=== PATIENT | male | born 1945 | race African-American/Black ===

== ENCOUNTER 2020-08-13 18:22 | Inpatient (IN) | payer MEDICARE, SELFPAY ==
--- NOTE | ~2020-08-13 | XR_ITS ---
EXAMINATION: XR chest 1V portable DATE: 08/16/2020 08:45 INDICATION: Endotracheal tube adjustment. TECHNIQUE: A single frontal view of the chest was obtained. COMPARISON: Chest single view at 8:41 AM FINDINGS: There are airspace opacities in all right lung zones and in left mid and lower lung zones. The lateral costophrenic angles are excluded. No pleural effusion or pneumothorax. The heart size is normal. There is an intrathoracic goiter on the right. There are surgical clips from left hemithyroid ectomy. The endotracheal tube tip is 4.9 cm above the treva. The nasogastric tube tip is beyond the inferior margin of the radiograph, but at least to the stomach. A left internal jugular central venou s catheter is seen with tip in the superior vena cava. IMPRESSION: 1. Stable diffuse lung disease, consistent with pulmonary edema versus pneumonia. 2. Intrathoracic goiter. Reviewed, dictated and finalized at location B. CLEANING MACHINE OPERATOR IMPRESSION: 1. Stable diffuse lung disease, consistent with pulmonary edema versus pneumoni a. 2. Intrathoracic goiter.
--- NOTE | ~2020-08-13 | XR_ITS ---
EXAMINATION: XR chest 1V portable DATE: 08/14/2020 06:28 INDICATION: Respiratory failure TECHNIQUE: frontal view of the chest was obtained. COMPARISON: Chest radiograph dated CT dated 08/13/2020 FINDINGS: Elevation of the right hemidiaphragm. There are airspace opacities throughout the right lung and in t he left mid and lower lung zones. No pneumothorax or pleural effusion. Borderline heart size. Right s uperior mediastinal mass corresponding to a large intrathoracic goiter. There are bridging osteophyte s at multiple levels in the spine, consistent with diffuse idiopathic skeletal hyperostosis (DISH). IMPRESSION: 1. Diffuse bilateral lung disease, most suspicious for multifocal pneumonia. 2. Borderline heart size. 3. Intrathoracic goiter. Reviewed, dictated and finalized at location A. ING SYSTEMS INSTALLER
--- NOTE | ~2020-08-13 | XR_ITS ---
EXAMINATION: XR chest port-a-cath/central DATE: 08/14/2020 14:48 INDICATION: Line repositioning TECHNIQUE: frontal view of the chest was obtained. COMPARISON: Chest radiograph dated 08/14/2020 at 2:30 PM FINDINGS: Left internal jugular central venous catheter with distal tip at the cephalad superior vena cava. No change in airspace opacities in the bilateral mid and lower lung zones. No pleural effusion or pneumo thorax. Heart size is normal. Right-sided superior mediastinal widening corresponding to an intrathor acic goiter. Surgical clips at the left side of the neck consistent with prior left thyroidectomy. IMPRESSION: 1. Left internal jugular central venous catheter in the cephalad superior vena cava. 2. Unchanged airspace opacities in the bilateral mid and lower lung zones consistent with pneumonia. 3. Right-sided intrathoracic goiter. Reviewed, dictated and finalized at location A. SLITERATOR IMPRESSION: 1. Left internal jugular central venous catheter in the cephalad superior vena cava. 2. Unchanged airspace opacities in the bilateral mid and lower lung zones consi stent with pneumonia. 3. Right-sided intrathoracic goiter.
--- NOTE | ~2020-08-13 | XR_ITS ---
EXAMINATION: XR chest 1V portable DATE: 08/20/2020 09:26 INDICATION: Respiratory failure TECHNIQUE: frontal view of the chest was obtained. COMPARISON: Chest radiograph dated 08/19/2020 FINDINGS: Endotracheal tube tip 5.2 cm above the treva. Left internal jugular central venous catheter with dis dre tip in the midsuperior vena cava. Nasogastric tube extends below the left hemidiaphragm with dis dre tip collimated off the study. No significant interval change in diffuse airspace opacities throughout both lungs. No pneumothorax o r pleural effusion. Heart size is normal. Right-sided intrathoracic goiter. IMPRESSION: 1. No significant change in diffuse bilateral lung disease consistent with pneumonia. Reviewed, dictated and finalized at location A. STORAGE SUPERINTENDENT IMPRESSION: 1. No significant change in diffuse bilateral lung disease consistent with pneu monia.
--- NOTE | ~2020-08-13 | XR_ITS ---
EXAMINATION: XR chest 1V portable INDICATION: Cardiopulmonary arrest TECHNIQUE: Portable AP chest at 1825 hours COMPARISON: 0924 hours FINDINGS: The endotracheal tube ends approximately 2.1 cm above the treva. The nasogastric tube is f ollowed as far as the stomach. Its tip is beyond the inferior margin of the radiograph. A left chief of internal medicine al jugular central venous catheter ends with its tip in the proximal superior vena cava. Diffuse inte rstitial and airspace opacities persist without significant change. No pleural effusion or pneumothor ax is identified. The cardiomediastinal silhouette is stable. IMPRESSION: 1. Stable diffuse lung disease, consistent with pneumonia and/or pulmonary edema and/or acute respira tory distress syndrome (ARDS). Reviewed, dictated and finalized at location A. RAM MANAGER TRANSPORTATION IMPRESSION: 1. Stable diffuse lung disease, consistent with pneumonia and/or pulmonary gordo a and/or acute respiratory distress syndrome (ARDS).
--- NOTE | ~2020-08-13 | XR_ITS ---
EXAMINATION: XR chest port-a-cath/central DATE: 08/14/2020 13:10 INDICATION: Central line repositioning. TECHNIQUE: A single frontal view of the chest was obtained. COMPARISON: Chest single view at 12:30 PM FINDINGS: There are airspace opacities in the mid and lower lung zones. There is mild elevation of ri ght hemidiaphragm. No pleural effusion or pneumothorax. The heart size is normal. The left internal j ugular central venous catheter overlies the aortic arch with tip in the left superior intercostal vei n. There are surgical clips from left hemithyroidectomy. There is mediastinal widening from and intra thoracic goiter. IMPRESSION: 1. Central line tip in abnormal position in the left superior intercostal vein. 2. Airspace opacities in the mid and lower lung zones, consistent with pneumonia. 3. Intrathoracic goiter. Reviewed, dictated and finalized at location B. LE CASE PORTER IMPRESSION: 1. Central line tip in abnormal position in the left superior intercostal vein. 2. Airspace opacities in the mid and lower lung zones, consistent with pneumoni a. 3. Intrathoracic goiter.
--- NOTE | ~2020-08-13 | XR_ITS ---
EXAMINATION: XR abdomen NG/feed tube insert DATE: 08/16/2020 08:45 INDICATION: Orogastric tube placement. TECHNIQUE: A supine view of the abdomen was obtained. COMPARISON: None. FINDINGS: The lower abdomen is excluded. There are no dilated loops of bowel. The nasogastric tube ti p is in the stomach. IMPRESSION: 1. Nasogastric tube tip in the stomach. Reviewed, dictated and finalized at location B. STMENT EXECUTIVE
--- NOTE | ~2020-08-13 | XR_ITS ---
EXAMINATION: XR chest 1V portable DATE: 08/16/2020 06:24 INDICATION: Respiratory failure. COVID-19 pneumonia. TECHNIQUE: A single frontal view of the chest was obtained. COMPARISON: Chest single view 08/14/2020, chest CT 08/13/2020 FINDINGS: There are airspace opacities in all right lung zones and in left mid and lower lung zones. No pleural effusion or pneumothorax. The heart size is normal. There is chronic widening of the super ior mediastinum, consistent with an intrathoracic goiter. A left internal jugular central venous cath eter is seen with tip at the superior cavoatrial junction. IMPRESSION: 1. Worsened diffuse lung disease, consistent with pneumonia versus pulmonary edema. 2. Intrathoracic goiter. Reviewed, dictated and finalized at location B. OFFICER IMPRESSION: 1. Worsened diffuse lung disease, consistent with pneumonia versus pulmonary ed oscar. 2. Intrathoracic goiter.
--- NOTE | ~2020-08-13 | XR_ITS ---
EXAMINATION: XR chest port-a-cath/central DATE: 08/14/2020 12:42 INDICATION: Central line placement. TECHNIQUE: A single frontal view of the chest was obtained. COMPARISON: Chest single view at 6:17 AM, chest CT 08/13/2020 FINDINGS: There are airspace opacities in all right lung zones and left mid and lower lung zones. No pleural effusion or pneumothorax. The heart size is normal. There is a mediastinal mass correlating w ith an intrathoracic goiter by CT. A left internal jugular central venous catheter is seen with tip d irected superiorly in the right brachiocephalic vein. IMPRESSION: 1. Central line tip directed superiorly in right brachiocephalic vein. 2. Diffuse lung disease, consistent with pneumonia. 3. Intrathoracic goiter. Reviewed, dictated and finalized at location B. F OF PRODUCTION
--- NOTE | ~2020-08-13 | XR_ITS ---
EXAMINATION: XR chest 1V portable EXAM DATE: 08/25/2020 23:18 INDICATION: COVID. Desaturation. TECHNIQUE: Portable AP frontal chest x-ray was obtained. Comparison is made to prior examination from 3 a.m. this morning. FINDINGS: Endotracheal tube is above the treva. There is a nasogastric tube seen with tip collimate d off the study, but below the left hemidiaphragm. There is a left IJ venous line. Again there is extensive abnormal reticulation, pneumonia and/or edema. Probable small pleural effus ions. Mild cardiomegaly. There is no pneumothorax suspected. There are mild bony degenerative change s. Goiter. There is no significant interval change compared to prior exam. IMPRESSION: 1. Line and tube(s) in position. 2. Extensive bilateral edema and/or pneumonia not significantly changed Reviewed, dictated and finalized at location G. REMENT SALES CONSULTANT
--- NOTE | ~2020-08-13 | XR_ITS ---
EXAMINATION: XR chest ET placement DATE: 08/25/2020 03:14 INDICATION: Reintubation. COVID-19 pneumonia. TECHNIQUE: A single frontal view of the chest was obtained. COMPARISON: Chest single view 08/24/2020 FINDINGS: There are airspace and interstitial opacities in all lung zones bilaterally. No definite pl eural effusion. No pneumothorax. The heart size is normal. There is a right-sided intrathoracic goite r. There are surgical clips from left hemithyroidectomy. The endotracheal tube tip is 4.5 cm above th e treva. The nasogastric tube tip is beyond the inferior margin of the radiograph, but at least to t he stomach. A left internal jugular central venous catheter is seen with tip in the superior vena cav a. IMPRESSION: 1. Worsened diffuse lung disease, consistent with pneumonia versus pulmonary edema versus acute respi ratory distress syndrome (ARDS). 2. Intrathoracic goiter. Reviewed, dictated and finalized at location A. ING LINE WORKER IMPRESSION: 1. Worsened diffuse lung disease, consistent with pneumonia versus pulmonary ed oscar versus acute respiratory distress syndrome (ARDS). 2. Intrathoracic goiter.
--- NOTE | ~2020-08-13 | XR_ITS ---
EXAMINATION: XR chest 1V portable DATE: 08/23/2020 05:42 INDICATION: Intubated. COVID-19 pneumonia. TECHNIQUE: A single frontal view of the chest was obtained. COMPARISON: Chest single view 08/20/2020, chest CT 08/13/2020 FINDINGS: The patient is rotated to his right. There are airspace and interstitial opacities througho ut the lungs bilaterally. There are small pleural effusions. No pneumothorax. The heart size is danilo l. There is a right paratracheal mass correlating with a goiter by CT. There are surgical clips from left hemithyroidectomy. A left internal jugular central venous catheter is seen with tip in the super ior vena cava. The endotracheal tube tip is 5.2 cm above the treva. The nasogastric tube tip is beyo nd the inferior margin of the radiograph, but at least to the stomach. IMPRESSION: 1. Stable diffuse lung disease, consistent with pneumonia versus pulmonary edema versus acute respira tory distress syndrome (ARDS). 2. Small pleural effusions. 3. Intrathoracic goiter. Reviewed, dictated and finalized at location A. LE ASSEMBLER IMPRESSION: 1. Stable diffuse lung disease, consistent with pneumonia versus pulmonary gordo a versus acute respiratory distress syndrome (ARDS). 2. Small pleural effusions. 3. Intrathoracic goiter.
--- NOTE | ~2020-08-13 | XR_ITS ---
EXAMINATION: XR chest 1V portable DATE: 08/19/2020 08:55 INDICATION: Respiratory failure TECHNIQUE: frontal view of the chest was obtained. COMPARISON: Chest radiograph dated 08/18/2020 FINDINGS: Endotracheal tube tip 5.6 cm above the treva. Nasogastric tube extends below the left hemidiaphragm with distal tip collimated off the study. Left upper extremity peripherally inserted central venous catheter (PICC) tip at the superior vena cava. Elevation of the right hemidiaphragm. Again seen is a bilateral diffuse increased interstitial patter n with regions of patchy groundglass opacity. There is been interval worsening in the left mid and up per lung zones and with mild improvement in the left lower lung zone and more significant improvement throughout the right lung. No pleural effusion or pneumothorax. Heart size is normal. Right intratho racic goiter. IMPRESSION: 1. Bilateral interstitial and patchy airspace opacities with regions of improvement and regions of wo rsening which could represent pulmonary edema, pneumonia, atelectasis or most likely some combination thereof. 2. Right intrathoracic goiter. Reviewed, dictated and finalized at location A. TYPE OPERATOR IMPRESSION: 1. Bilateral interstitial and patchy airspace opacities with regions of improve ment and regions of worsening which could represent pulmonary edema, pneumonia, atelectasis or most likely some combination thereof. 2. Right intrathoracic goiter.
--- NOTE | ~2020-08-13 | XR_ITS ---
EXAMINATION: XR chest 1V portable DATE: 08/16/2020 08:45 INDICATION: Endotracheal tube adjustment. TECHNIQUE: A single frontal view of the chest was obtained. COMPARISON: Chest single view at 8:12 AM FINDINGS: There are airspace opacities in all lung zones bilaterally with relative sparing of left giovani ng apex. No pleural effusion or pneumothorax. The heart size is normal. The endotracheal tube tip is 9 mm above the treva. The nasogastric tube tip is beyond the inferior margin of the radiograph, but at least to the stomach. A left internal jugular central venous catheter is seen with tip in the supe rior vena cava. There is an intrathoracic goiter on the right. There are surgical clips from left hem ithyroidectomy. IMPRESSION: 1. Diffuse lung disease with improvement at left lung base, consistent with pneumonia versus pulmonar y edema. 2. Intrathoracic goiter. Reviewed, dictated and finalized at location B. GE PEEL OPERATOR IMPRESSION: 1. Diffuse lung disease with improvement at left lung base, consistent with pne umonia versus pulmonary edema. 2. Intrathoracic goiter.
--- NOTE | ~2020-08-13 | CT_ITS ---
EXAMINATION: CTA chest PE protocol DATE: 08/13/2020 19:52 INDICATION: Shortness of breath. TECHNIQUE: Computed tomography (CT) pulmonary angiogram of the chest was performed with 100 mL Omnipa que-350 intravenous contrast. Additional 3D reconstructions utilizing coronal maximum intensity proje ction (MIP) were performed. Automated exposure control and iterative reconstruction technique were em ployed. The dose-length product was 945.83 mGy-cm. COMPARISON: None FINDINGS: Good contrast opacification of the pulmonary arteries. There is mild streak artifact from dense contr ast in the superior vena cava and right atrium. Moderate scattered respiratory motion artifact which significantly limits evaluation in the subsegmental pulmonary arteries in the segmental pulmonary art eries in the right lower lobe. No definitive pulmonary embolism. And elevation of the right hemidiaph ragm with compressive atelectasis in the adjacent right middle and lower lobes. There are bilateral p atchy groundglass opacities and small region of consolidation throughout both lungs relatively sparin g the left apex. No pleural effusion. Borderline heart size. No pericardial effusion. Mild enlargement of the central pulmonary arteries co nsistent with pulmonary hypertension. Thoracic aorta is normal in caliber with no dissection. Postope rative change of prior left thyroidectomy. Right-sided multinodular goiter with large mass with coars e calcifications extending into the superior mediastinum. Mediastinal and right hilar lymphadenopathy . There are ossifications in a precarinal lymph node consistent with old granulomatous disease. Calci fied gallstones in the partially decompressed gallbladder evaluation of which is limited by motion ar tifact. Small low-attenuation cysts in the liver and right kidney. Severe cervical thoracic spondylos is. IMPRESSION: 1. No pulmonary embolism although evaluation in the subsegmental and right basilar segmental pulmonar y arteries is significantly limited by motion artifact. 2. Scattered bilateral patchy consolidation groundglass opacities consistent with multifocal pneumoni a with appearance suspicious for COVID. Differential would include significantly less likely pulmonar y edema, organizing or eosinophilic pneumonia, hypersensitivity pneumonitis or sarcoidosis. 3. Status post likely left thyroidectomy with large right-sided intrathoracic goiter. 4. Mediastinal and right hilar lymphadenopathy which is likely reactive. 5. Borderline heart size with mild enlargement of the pulmonary arteries consistent with pulmonary ar terial hypertension. 6. Cholelithiasis. Reviewed, dictated and finalized at location A. PASSENGER VESSEL IMPRESSION: 1. No pulmonary embolism although evaluation in the subsegmental and right basi lar segmental pulmonary arteries is significantly limited by motion artifact. 2. Scattered bilateral patchy consolidation groundglass opacities consistent wi th multifocal pneumonia with appearance suspicious for COVID. Differential woul d include significantly less likely pulmonary edema, organizing or eosinophilic pneumonia, hypersensitivity pneumonitis or sarcoidosis. 3. Status post likely left thyroidectomy with large right-sided intrathoracic g oiter. 4. Mediastinal and right hilar lymphadenopathy which is likely reactive. 5. Borderline heart size with mild enlargement of the pulmonary arteries consis tent with pulmonary arterial hypertension. 6. Cholelithiasis.
--- NOTE | ~2020-08-13 | XR_ITS ---
EXAMINATION: XR chest ET placement DATE: 08/16/2020 08:45 INDICATION: Intubation. TECHNIQUE: A single frontal view of the chest was obtained. COMPARISON: Chest single view at 5:31 AM FINDINGS: There are airspace opacities in all right lung zones and in left mid and lower lung zones. No pleural effusion or pneumothorax. The heart size is normal. The endotracheal tube tip is 1.3 cm ab ove the treva. The nasogastric tube tip is beyond the inferior margin of the radiograph, but at leas t to the stomach. A left internal jugular central venous catheter is seen with tip in the superior ve na cava. There is an intrathoracic goiter on the right. There are surgical clips from left hemithyroi dectomy. IMPRESSION: 1. Diffuse lung disease with worsening at left lung base, consistent with pneumonia versus pulmonary edema. 2. Intrathoracic goiter. Reviewed, dictated and finalized at location B. TH PROGRAM MANAGER IMPRESSION: 1. Diffuse lung disease with worsening at left lung base, consistent with pneum onia versus pulmonary edema. 2. Intrathoracic goiter.
--- NOTE | ~2020-08-13 | US_ITS ---
EXAMINATION: US renal BI DATE: 08/15/2020 15:46 INDICATION: Acute kidney injury. TECHNIQUE: Multiple ultrasound grayscale images of the kidneys were obtained. COMPARISON: Chest CT 08/13/2020 FINDINGS: The right kidney measures 8.4 x 4.8 x 6.8 cm. The left kidney measures 10.7 x 5.6 x 6.0 cm. The kidne ys demonstrate normal parenchymal echogenicity. There is no hydronephrosis. The bladder is decompress ed by a Cortés catheter. IMPRESSION: 1. Mild atrophy of right kidney. No hydronephrosis. Reviewed, dictated and finalized at location B. L OF FORTUNE DEALER
--- NOTE | ~2020-08-13 | XR_ITS ---
EXAMINATION: XR chest 1V portable DATE: 08/17/2020 07:07 INDICATION: Respiratory failure. COVID-19 pneumonia. TECHNIQUE: A single frontal view of the chest was obtained. COMPARISON: Chest single view 08/16/2020, chest CT 08/13/2020 FINDINGS: There are patchy airspace opacities involving all lung zones bilaterally with relative spar ing of left upper lung zone. No pleural effusion or pneumothorax. The heart size is normal. A chronic right paratracheal mass correlates with an intrathoracic goiter by CT. There are surgical clips from left hemithyroidectomy. The endotracheal tube tip is 4.2 cm above the treva. The nasogastric tube t ip is beyond the inferior margin of the radiograph, but at least to the stomach. A left internal jugu lar central venous catheter is seen with tip in the superior vena cava. IMPRESSION: 1. Diffuse lung disease with interval improvement in aeration, consistent with pneumonia. 2. Intrathoracic goiter. Reviewed, dictated and finalized at location B. DISCHARGE
--- NOTE | ~2020-08-13 | XR_ITS ---
EXAMINATION: XR chest 1V portable DATE: 08/18/2020 06:07 INDICATION: Respiratory failure TECHNIQUE: frontal view of the chest was obtained. COMPARISON: Chest radiograph dated 08/17/2020 FINDINGS: Endotracheal tube tip 6.5 cm above the treva. Nasogastric tube extends below the left hemidiaphragm with distal tip collimated off the study. Left internal jugular central venous catheter with distal tip at the cephalad superior vena cava. No significant interval change in reticular and patchy airspace opacities throughout both lungs with relatively sparing at the left upper lung zone. No pleural effusion or pneumothorax. Heart size is no rmal. Chronic right intrathoracic goiter. IMPRESSION: 1. No significant change in diffuse bilateral lung disease consistent with pneumonia. 2. Endotracheal tube tip 6.5 cm above the treva. Consider advancement by 4 cm. 3. Intrathoracic goiter. Reviewed, dictated and finalized at location A. AIN WAITER/WAITRESS IMPRESSION: 1. No significant change in diffuse bilateral lung disease consistent with pneu monia. 2. Endotracheal tube tip 6.5 cm above the treva. Consider advancement by 4 cm. 3. Intrathoracic goiter.
--- NOTE | ~2020-08-13 | XR_ITS ---
EXAMINATION: XR chest 1V portable DATE: 08/24/2020 06:16 INDICATION: Respiratory failure. COVID-19 pneumonia. TECHNIQUE: A single frontal view of the chest was obtained. COMPARISON: Chest single view 08/23/2020 FINDINGS: There are airspace and interstitial opacities throughout the lungs bilaterally. No definite pleural effusion. No pneumothorax. The heart size is normal. There are surgical clips from left shellie thyroidectomy. There is an intrathoracic goiter on the right. A left internal jugular central venous catheter is seen with tip in the superior vena cava. The endotracheal tube tip is 5.4 cm above the ca scarlett. The nasogastric tube tip is beyond the inferior margin of the radiograph, but at least to the s tomach. IMPRESSION: 1. Stable diffuse lung disease, consistent with pneumonia versus pulmonary edema versus acute respira tory distress syndrome (ARDS). 2. Intrathoracic goiter. Reviewed, dictated and finalized at location A. CAL REFERRAL COORDINATOR IMPRESSION: 1. Stable diffuse lung disease, consistent with pneumonia versus pulmonary gordo a versus acute respiratory distress syndrome (ARDS). 2. Intrathoracic goiter.
--- NOTE | ~2020-08-13 | XR_ITS ---
EXAMINATION: XR chest port-a-cath/central DATE: 08/14/2020 14:36 INDICATION: Central line placement TECHNIQUE: frontal view of the chest was obtained. COMPARISON: Chest radiograph dated 08/14/2020 at 1:01 PM FINDINGS: The left internal jugular central venous catheter has been repositioned, now extending to the superio r vena cava and a short distance into the azygos vein. Unchanged airspace opacities in the bilateral mid and lower lung zones. Right superior mediastinal widening corresponding to an intrathoracic goite r on prior CT. No pleural effusion or pneumothorax. Elevation of the right hemidiaphragm. Heart size is normal. IMPRESSION: 1. Left internal jugular central venous catheter with tip in the proximal azygos vein. 2. Airspace opacities in the bilateral mid and lower lung zones consistent with pneumonia. 3. Intrathoracic goiter. Reviewed, dictated and finalized at location A. PAN MIXER IMPRESSION: 1. Left internal jugular central venous catheter with tip in the proximal azygo s vein. 2. Airspace opacities in the bilateral mid and lower lung zones consistent with pneumonia. 3. Intrathoracic goiter.
[2020-08-13 18:26] VITALS: BP 130/78; PULSE 85; RESP 18; TEMP 37.2; O2SAT 83
--- NOTE | 2020-08-13 18:36 | ECG_ITS ---
Measurements Intervals [place] Rate: 80 P: [place]: 0 QRS: 182 QRSD: 108 T: 115 QT: 360 QTc: 418 Interpretive Statements SINUS OR ECTOPIC ATRIAL RHYTHM CONSIDER LIMB LEAD REVERSAL BORDERLINE AV CONDUCTION DELAY ANTERIOR INFARCT, AGE INDETERMINATE INFERIOR INFARCT, AGE INDETERMINATE BASELINE ARTIFACT- I, II, AVR, AVL, AVF, V4 ABNORMAL ECG Electronically Signed On 08-14-2020 12:01:16 ECHO VASCULAR TECHNOLOGIST by Neal Rodriguez D.O.
[2020-08-13 18:44] LABS: Base Excess ABG -3.2 mEq/l (+/-2.0); Fractional Inspired Oxygen 100 %; HCO3 ABG 20.9 mEq/l (22.0-26.0); Oxygen Content ABG 14.6 %vol (16.0-22.0); Oxygen Saturation ABG 98.7 % (95.0-100.0); Oxyhemoglobin 97.5 % THb (90.0-100.0); PCO2 ABG 34.1 mmHg (35.0-45.0); PO2 ABG 130.9 mmHg (80.0-100.0); PO2 FiO2 Ratio Arterial Blood 1.31 %; Total Hemoglobin 10.5 g/dL (12.0-18.0); pH ABG 7.405 (7.350-7.450)
[2020-08-13 18:45] LABS: Device NON-REBREATHER MASK; Modified Allen's Test Pass; Site Drawn RIGHT RADIAL
--- NOTE | 2020-08-13 19:11 | ED.SOB ---
HPI - SOB/Dyspnea General Chief Complaint: Fever Stated Complaint: cough/fever Time Seen by Provider: 08/13/20 18:49 Source: patient Mode of arrival: ambulatory Limitations: no limitations History of Present Illness HPI Narrative: Patient 77-year-old male complaining of shortness of breath, cough and fever that started 3 days ago and worse tonight. Patient states he has a history of COPD and on 3 L of oxygen at home. Patient denies any chest pain, abdominal pain, nausea, vomiting, diarrhea. Related Data Allergies Allergy/AdvReac Type Severity Reaction Status Date / Time No Known Allergies Allergy Verified 08/13/20 20:15 Review of Systems Review of Systems: All systems reviewed & are unremarkable except as noted in HPI and below Constitutional: Constitutional: Denies body ache(s), Denies excessive sweating, Denies fatigue, Denies headache(s), Denies lethargy, Denies malaise, Denies weakness and Denies weight loss Eyes: Eyes: Denies blurry vision, Denies change in vision and Denies loss of vision ENT: Denies dizziness, Denies ear discharge, Denies headache(s), Denies lip swelling, Denies epistaxis, Denies nasal congestion, Denies neck pain, Denies throat swelling and Denies tongue swelling Cardiovascular: Cardiovascular: Denies chest pain, Denies chest pain at rest, Denies chest pain with activity, Denies diaphoresis, Denies rapid heart rate, Denies edema, Denies irregular heart rhythm, Denies lightheadedness and Denies palpitations Respiratory: Respiratory: Denies chest congestion, Denies cough and Denies hemoptysis Gastrointestinal: Gastrointestinal: Denies abdominal pain, Denies melena, Denies hematochezia, Denies diarrhea, Denies nausea, Denies vomiting and Denies hematemesis Musculoskeletal: Musculoskeletal: Denies abnormal gait, Denies deformity, Denies joint swelling, Denies limited range of motion, Denies neck pain and Denies numbness Neurologic: Denies Abnormal speech present, Denies abnormal gait, Denies confusion, Denies dizziness, Denies headache(s), Denies focal weakness, Denies loss of vision, Denies numbness, Denies Other visual disturbances, Denies Sensory deficit (Neuro) and Denies weakness Psychiatric: Psychiatric: Denies confusion, Denies depression, Denies auditory hallucinations, Denies homicidal ideation and Denies suicidal ideation Endocrine: Endocrine: Denies cold intolerance, Denies excessive sweating, Denies fatigue, Denies heat intolerance and Denies palpitations Hematologic/Lymphatic: Hematologic/Lymphatic: Denies easy bleeding and Denies easy bruising Allergic/Immunologic: Allergic/Immunologic: Denies lip swelling, Denies throat swelling and Denies tongue swelling [facility] Social History Social History Gender identity (if verbalized by the patient): Male Exam Const: General: alert, awake, in distress moderate and ill appearing; No confusion Nutritional Appearance: obese Orientation/consciousness: oriented to person, oriented to place, oriented to time, patient oriented x3 and No confusion Limitations: no limitations HENMT: Head: normal to inspection, normocephalic and atraumatic Ears: hearing grossly normal bilaterally, TM normal on the right and TM normal on the left General nose exam: Normal external nose present, Normal nares present and No nasal discharge present Face and sinus: normal facial exam Mouth: Yes Normal oral and palatal mucosa present, Yes lip normal, Yes tongue normal and Yes oropharynx normal Throat: posterior oropharynx normal, tonsils normal and uvula midline Eyes: General: appearance normal, both eyes and all related structures Pupils: Equal, round and reactive pupils present EOM: EOMs intact bilaterally Neck: Neck: normal visual inspection, full ROM, no lymphadenopathy and no meningeal signs Chest: Chest palpation & inspection: normal inspection of the chest Resp: Effort & Inspection: respiratory distress Auscultation: rhonchi, wheezes and diminished lung sounds C
[2020-08-13 19:12] LABS: Basophils Percent Auto 0.2 % (0.2-1.2); Hemoglobin 9.9 g/dL (14.0-18.0); Immature Granulocyte Absolute 0.04 K/mm3 (0.00-0.031); Immature Granulocyte Percent A 0.4 % (0-0.5); Lymphocytes Absolute Auto 1.73 K/mm3 (0.9-3.2); Mean Corpuscular HGB Conc 30.9 g/dl (32-36); Mean Platelet Volume 12.5 fl (7.4-10.4); Monocytes Absolute Auto 0.7 K/mm3 (0.1-0.6); Monocytes Percent Auto 6.6 % (2.6-8.5); Neutrophils Absolute Auto 7.7 K/mm3 (1.3-6.7); Neutrophils Percent Auto 75.8 % (45.5-73.1); Platelet Count Result 160 k/mm3 (150-375); Red Blood Count 3.81 M/mm3 (4.6-6.20); Red Cell Distribution Width 14.6 % (11.5-14.5); White Blood Count 10.2 K/mm3 (4.5-10.0)
[2020-08-13 19:24] LABS: Anion Gap 11 mmol/L (8-16); Blood Urea Nitrogen 38 mg/dL (9-20); Calcium 7.7 mg/dL (8.4-10.2); Carbon Dioxide 24 mmol/L (22-30); Chloride 105 mmol/L (98-107); Estimated CRCL calculation 33 ml/min; Estimated Glomerular Filt Rate 31; Glucose 199 mg/dL (75-110); Potassium 3.8 mmol/L (3.4-5.0); Sodium 140 mmol/L (137-145)
[2020-08-13 19:40] LABS: Lactic Acid Reflex 3.7 mmol/L (0.7-2.1)
[2020-08-13 21:46] VITALS: BP 155/42; PULSE 98; RESP 21; O2SAT 99
[2020-08-13 22:05] VITALS: PULSE 94; RESP 26
[2020-08-13] MEDS: ALBUTEROL SULFATE NEB 2.5 MG/0.5 ML INH 5 MG INHALATION (22:06)
[2020-08-13] MEDS: IPRATROPIUM BR 0.02% INH SOLN 0.5 MG/2.5 ML VIAL INHALATION (22:07)
[2020-08-13] MEDS: LACTATED RINGERS 1,000 ML 999 ML IV CONT (22:19)
[2020-08-13 22:27] LABS: Reflex Lactic Acid Yes or No Add Lactic
--- NOTE | 2020-08-13 22:43 | ADMGEN ---
This patient, Faustino Meza, was admitted to IMU Room 214-01 at 2243. Patient/family oriented to hospital policies and general routines including ID bracelet, bed and alarms, visiting hours, pain management, procedures, bathroom and other care routines, personal items, smoking policy, room service/diet, and visiting hours. Information on how to activate the Rapid Response Team has been discussed. Patient/Family are encouraged to report perceived risks to care and to ask questions if they do not understand what they are told or what they should do.
[2020-08-13 22:44] VITALS: PULSE 103
[2020-08-13 23:00] VITALS: BP 193/65; PULSE 107; RESP 20; TEMP 37; O2SAT 93; BMI 37.5
--- NOTE | 2020-08-13 23:07 | ADMGEN ---
This patient, Faustino Meza, was admitted to IMU Room 214-01. Patient/family oriented to hospital policies and general routines including ID bracelet, bed and alarms, visiting hours, pain management, procedures, bathroom and other care routines, personal items, smoking policy, room service/diet, and visiting hours. Information on how to activate the Rapid Response Team has been discussed. Patient/Family are encouraged to report perceived risks to care and to ask questions if they do not understand what they are told or what they should do.
[2020-08-13 23:08] VITALS: BMI 37.4
[2020-08-13 23:14] VITALS: BP 193/65; PULSE 107; RESP 20; TEMP 37; O2SAT 93; BMI 37.4
--- NOTE | 2020-08-13 23:15 | PM.IMHP ---
H&P: HPI History of Present Illness Date/Time: 08/13/20 23:15 Chief complaint: Acute Respiratory Failure, Pneumonia Narrative: This is a pleasant 75-year-old diabetic male with known history chronic hypertension, hyperlipidemia, and chronic respiratory failure normally on 3 L of oxygen at home at all times presented to the hospital tonight with a history of increased shortness of breath, poorly productive cough, and fevers for the past 3 days. The patient's family notice that he was requiring more oxygen and started having intermittent fevers. Today the patient required 4 L of oxygen at home and his family decided to bring him to the hospital when he was having more shortness of breath and a fever. Associated symptoms include wheezing and .The patient's is also sick at home with similar symptoms. He currently denies any nausea, vomiting, chest pain, palpitations, Abdominal pain, dysuria, diarrhea, rectal bleeding, or focal neurological deficits. The patient was evaluated emergency room this evening and CTA chest demonstrated scattered bilateral patchy consolidation groundglass opacities consistent with multifocal pneumonia with appearance suspicious for COVID. The patient has been placed on high-flow oxygen and we been asked to admit him to the hospital for further care. The patient has been swab for COVID-19. The patient was also treated with 1 liter of LR in the ER and then Lasix IV was ordered but never administered in the ER. He was treated with IV antibiotics for community acquired pneumonia. Review of Systems Review of Systems: All systems reviewed & are unremarkable except as noted in HPI and below PMFSH Past Medical History Medical History Chronic respiratory failure Dementia Diabetes mellitus Hyperlipidemia Hypertension Family History Family History Other Unknown family medical history Social History Social History Smoking packs per day: 4 Smoking cigarettes per day: 80.0 Years smoked: 60 Smoking pack-years: 240.00 Smoking status: Former smoker Tobacco type: cigarettes Alcohol intake: former Substance use: never Gender identity (if verbalized by the patient): Male Spiritual care concerns: No Comments Past surgical history is reviewed and noncontributory. Meds Home Medications and Allergies Home Medications Medication Instructions Recorded Confirmed Type aspirin [Aspir-81] 81 mg PO DAILY 08/13/20 08/13/20 History atorvastatin 40 mg PO HS 08/13/20 08/13/20 History budesonide-formoterol [Symbicort] 2 puff INHALATION Q12H 08/13/20 08/13/20 History calcitriol 0.25 mcg PO DAILY 08/13/20 08/13/20 History diltiazem HCl 360 mg PO DAILY 08/13/20 08/13/20 History donepezil 10 mg PO DAILY 08/13/20 08/13/20 History doxazosin 2 mg PO HS 08/13/20 08/13/20 History ergocalciferol (vitamin D2) 50,000 unit PO DAILY 08/13/20 08/13/20 History glimepiride 2 mg PO DAILY 08/13/20 08/13/20 History insulin degludec [Tresiba 50 unit SUBCUT DAILY 08/13/20 08/13/20 History FlexTouch U-200] losartan 100 mg PO DAILY 08/13/20 08/13/20 History memantine 5 mg PO HS 08/13/20 08/13/20 History oxybutynin chloride 5 mg PO DAILY 08/13/20 08/13/20 History Allergies Allergy/AdvReac Type Severity Reaction Status Date / Time No Known Allergies Allergy Verified 08/13/20 20:15 Vital Signs Vital Signs - 24 hr 08/13/20 18:26 08/13/20 21:46 08/13/20 22:05 Temperature 37.2 C Pulse Rate 85 98 94 Respiratory Rate 18 21 H 26 H Blood Pressure 130/78 155/42 H Pulse Oximetry 83 L 99 08/13/20 23:00 08/13/20 23:14 Temperature 37.0 C 37.0 C Pulse Rate 107 H 107 H Respiratory Rate 20 20 Blood Pressure 193/65 H 193/65 H Pulse Oximetry 93 93 Exam Const: General: cooperative, alert, awake, acute distress mild and respirator
[2020-08-14] VITALS (39 sets, daily range): BP systolic 126–198; BP diastolic 44–152; PULSE 77–121; RESP 20–38; TEMP 35.9–37.2; O2SAT 80–100
--- NOTE | 2020-08-14 00:40 | PC.NURSE ---
This patient, Faustino Meza, was received from IMU on 08/14/20 at 0040. Patient oriented to unit policies and routines
[2020-08-14 00:46] LABS: Fractional Inspired Oxygen 100 %; HCO3 ABG 22.1 mEq/l (22.0-26.0); Oxygen Content ABG 12.3 %vol (16.0-22.0); Oxyhemoglobin 80.1 % THb (90.0-100.0); PO2 FiO2 Ratio Arterial Blood 0.56 %; Total Hemoglobin 10.9 g/dL (12.0-18.0)
[2020-08-14 00:47] LABS: Device NON-REBREATHER MASK; Modified Allen's Test Pass; Oxygen Saturation ABG 82.4 % (95.0-100.0); Site Drawn RIGHT RADIAL; pH ABG 7.214 (7.350-7.450)
[2020-08-14] MEDS: FUROSEMIDE INJ 100 MG/10 ML VIAL (00:52)
[2020-08-14] MEDS: hydrALAZINE HCL 20 MG/ML VIAL 10 MG IV PUSH ×2 (01:32→05:51)
[2020-08-14 01:50] LABS: Add Urine Microscopic? YES; Amorphous Sediment Urine Few; Appearance Urine Cloudy (Clear); Bacteria Urine Trace /hpf; Bilirubin Urine Negative (Negative); Blood Urine Negative (Negative); Color Urine Yellow (Yellow); Glucose Urine UA 1+ mg/dL (Negative); Ketones Urine Negative (Negative); Leukocyte Esterase Ur 1+ LEU/UL (Negative); Nitrate Urine Negative (Negative); Protein Urine 2+ mg/dL (Negative); Specific Grav Ur 1.023 (1.001-1.035); Squamous Epithelial Cell Urine Rare /hpf (Few); Urobilinogen Urine Negative mg/dL (<2.0); WBC Urine 31-50 /hpf
[2020-08-14 02:26] LABS: Alveolar/Arterial O2 Gradient 594.8 mmHg; Carboxyhemoglobin 0.3 % THb (0-2.0); Fractional Inspired Oxygen 100 %; HCO3 ABG 20.9 mEq/l (22.0-26.0); Methemoglobin ABG 0.2 %THb (0-1.5); Oxygen Content ABG 13.8 %vol (16.0-22.0); Oxygen Saturation ABG 95.6 % (95.0-100.0); PCO2 ABG 37.5 mmHg (35.0-45.0); PO2 ABG 80.7 mmHg (80.0-100.0); PO2 FiO2 Ratio Arterial Blood 0.81 %; Reduced Hemoglobin 5.5 %THb (0-5.0); Total Hemoglobin 10.4 g/dL (12.0-18.0); pH ABG 7.365 (7.350-7.450)
[2020-08-14 02:27] LABS: Device BIPAP; Expiratory Pressure 8 cmH2O; Inspiratory Pressure 16 cmH2O; Modified Allen's Test Pass; Site Drawn RIGHT RADIAL
[2020-08-14 07:04] LABS: Basophils Percent Auto 0.1 % (0.2-1.2); Hematocrit 31.2 % (42.0-52.0); Hemoglobin 9.6 g/dL (14.0-18.0); Immature Granulocyte Absolute 0.04 K/mm3 (0.00-0.031); Immature Granulocyte Percent A 0.3 % (0-0.5); Lymphocytes Absolute Auto 0.88 K/mm3 (0.9-3.2); Lymphocytes Percent Auto 7.5 % (18.3-44.2); Mean Corpuscular HGB Conc 30.8 g/dl (32-36); Mean Corpuscular Hemoglobin 25.3 pg (26-34); Mean Corpuscular Volume 82.3 fl (80-100); Mean Platelet Volume 12.1 fl (7.4-10.4); Monocytes Absolute Auto 0.7 K/mm3 (0.1-0.6); Monocytes Percent Auto 5.6 % (2.6-8.5); Neutrophils Absolute Auto 10.1 K/mm3 (1.3-6.7); Neutrophils Percent Auto 86.5 % (45.5-73.1); Platelet Count Result 154 k/mm3 (150-375); Red Blood Count 3.79 M/mm3 (4.6-6.20); Red Cell Distribution Width 14.7 % (11.5-14.5); White Blood Count 11.7 K/mm3 (4.5-10.0)
[2020-08-14 07:25] LABS: Lactic Acid Reflex 1.4 mmol/L (0.7-2.1)
[2020-08-14 07:26] LABS: Alanine Aminotransferase 23 U/L (4-50); Alkaline Phosphatase 104 U/L (38-126); Anion Gap 6 mmol/L (8-16); Aspartate Amino Transferase 52 U/L (17-59); Bilirubin,Total 0.6 mg/dL (0.2-1.3); Blood Urea Nitrogen 36 mg/dL (9-20); Calcium 7.6 mg/dL (8.4-10.2); Carbon Dioxide 28 mmol/L (22-30); Chloride 106 mmol/L (98-107); Estimated CRCL calculation 29 ml/min; Estimated Glomerular Filt Rate 34; Glucose 224 mg/dL (75-110); Magnesium 1.9 mg/dL (1.6-2.3); Potassium 4.1 mmol/L (3.4-5.0); Sodium 140 mmol/L (137-145)
--- NOTE | 2020-08-14 07:26 | PC.NURSE ---
This patient, Faustino Meza, was transferred to IMU 214 on 08/14/20 at 0700. Personal belongings sent with patient. Report given to SIERRA MENA. Appropriate documentation sent with patient.
[2020-08-14 07:30] LABS: Erythrocyte Sedimentation Rate 61 mm/hr (0-20)
[2020-08-14] MEDS: ALBUTEROL SULFATE (*SP) AEROSOL 1 PUFF 2 PUFF INHALATION (07:46)
[2020-08-14 08:12] LABS: CRP 24.6 mg/dL (<1.0); Creatine Kinase 394 U/L (55-170); Lactate Dehydrogenase 1028 U/L (313-618)
[2020-08-14] MEDS: DEXAMETHASONE SOD PHOS INJ 4 MG/ML VIAL 6 MG IV PUSH (09:15)
[2020-08-14] MEDS: ENOXAPARIN 40 MG/0.4 ML SYRINGE SUB-Q ×2 (09:17→20:19)
[2020-08-14 11:53] LABS: Glucose Point of Care 182 (65-105)
[2020-08-14] MEDS: LIDOCAINE HCL 1% LOCAL INJ 2 ML AMPUL 5 ML INFILTRATE (12:15)
[2020-08-14 13:39] LABS: INR 1.2; Prothrombin Time 15.3 Seconds (11.1-14.7)
[2020-08-14 13:40] LABS: Partial Thromboplastin Time 38.5 SECONDS (22.3-36.8)
[2020-08-14 13:45] LABS: Alanine Aminotransferase 25 U/L (4-50); Albumin Level 2.9 g/dL (3.5-5.1); Alkaline Phosphatase 98 U/L (38-126); Anion Gap 5 mmol/L (8-16); Aspartate Amino Transferase 58 U/L (17-59); Bilirubin,Total 0.7 mg/dL (0.2-1.3); Blood Urea Nitrogen 38 mg/dL (9-20); Calcium 7.6 mg/dL (8.4-10.2); Carbon Dioxide 28 mmol/L (22-30); Chloride 108 mmol/L (98-107); Estimated CRCL calculation 27 ml/min; Estimated Glomerular Filt Rate 31; Glucose 197 mg/dL (75-110); Potassium 3.9 mmol/L (3.4-5.0); Sodium 141 mmol/L (137-145)
--- NOTE | 2020-08-14 15:47 | PCRCNOTE ---
08/14/20 0200 mdi not given Window of time for administration has passed. See next scheduled administration.
[2020-08-14] MEDS: CENTRAL LINE FLUSH 10 ML IV PUSH ×2 (16:51→20:19)
--- NOTE | 2020-08-14 16:54 | PM.IMPN ---
Progress Note: A&P Assessment and Plan (1) Acute on chronic respiratory failure with hypoxia and hypercapnia: Code(s): J96.21 - Acute and chronic respiratory failure with hypoxia; J96.22 - Acute and chronic respiratory failure with hypercapnia Status: Acute Assessment and Plan: The patient is clearly fluid overloaded with diffuse crackles in all lung bella and this is likely secondary to the 1 liter of LR bolus he recieved in the ER. He has been admitted to IMU and at this time he appears to be in severe acute respiratory distess and very well may need to be intubated shortly. We will initiate bipap, transfer to ICU, Administer Lasix IV now. Consider further IV lasix as needed. Check morning CXR. Check ABG now and after Bipap therapy. 08/14/20 16:54 Patient is 75-year-old male with history of chronic respiratory failure on home oxygen 3 L however patient had been desaturating on his home oxygen was increased to 4 L without much improvement, he was also having fever, some of the family member been positive for COVID-19, patient and family were concerned about it and was brought to the emergency department, patient COVID is pending, in ER he was desaturating and patient was placed on BiPAP. Currently patient on BiPAP unable to provide any review of symptoms, from emergency depart patient started on dexamethasone, azithromycin and Rocephin will consult staple side laster for further recommendation. (2) Suspected 2019 novel coronavirus infection: Code(s): Z20.828 - Contact with and (suspected) exposure to other viral communicable diseases Status: Acute Assessment and Plan: The patient has been swabbed for COVID-19. We will initiate Dexamethasone IV daily. Continue droplet isolation and supplemental oxygen therapy. We will consider Remdesivir thearpy if the patient tests postiive for COVID-19. Lovenox. (3) Pneumonia: Qualifiers: Laterality: unspecified laterality Lung location: unspecified part of lung Pneumonia type: due to unspecified organism Qualified Code(s): J18.9 - Pneumonia, unspecified organism Code(s): J18.9 - Pneumonia, unspecified organism Status: Acute Assessment and Plan: r/o Viral vs. Bacterial pneumonia. Continue IV antibiotics for now. Bronchodilators. Steroid therapy. Blood and sputum cultures. RT assess and treat. (4) Severe sepsis: Code(s): A41.9 - Sepsis, unspecified organism; R65.20 - Severe sepsis without septic shock Status: Acute Assessment and Plan: with tachycardia and tachypnea and elevated lactic acid. Source of sepsis appears to be pulmonary but may also be urinary. continue IV antibiotics. blood/sputum/urine cultures. Check reflex lactic acid. Monitor urine output and vital signs closely. We will consider central line placement and vasopressors if necessary. (5) Renal failure: Qualifiers: Renal failure chronicity: unspecified chronicity Qualified Code(s): N19 - Unspecified kidney failure Code(s): N19 - Unspecified kidney failure Status: Acute Assessment and Plan: Acute vs. Chronic? Likely secondary to sepsis. Monitor renal function. Avoid nephrotoxic agents, renally dose medications. Consider nephrology consultation in am. (6) Abnormal urinalysis: Code(s): R82.90 - Unspecified abnormal findings in urine Status: Acute Assessment and Plan: r/o UTI. continue IV antibiotics. Urine culture is pending. (7) Normocytic anemia: Code(s): D64.9 - Anemia, unspecified Status: Acute Assessment and Plan: Acute vs. Chronic anemia - No signs of acute blood loss tonight. Monitor H/H, transfuse prn. (8) Diabetes mellitus: Qualifiers: Diabetes mellitus type: type 2 Diabetes mellitus long term acute care registered nurse insulin use: without long term acute care registered nurse use Diabetes mellitus complication status: without complication Qualified Code(s): E11.9 - Type 2 diabetes mellitus without
[2020-08-14 18:52] LABS: SARS-CoV-2 RNA PCR Positive
[2020-08-14] MEDS: ALBUTEROL SULFATE (*SP) INHALER 2 PUFF INHALATION ×2 (20:17→20:48)
[2020-08-15] VITALS (25 sets, daily range): BP systolic 109–191; BP diastolic 69–103; PULSE 86–137; RESP 21–35; TEMP 36–37.1; O2SAT 69–95
--- NOTE | 2020-08-15 | ECHO_ITS ---
Patient Info Name: Faustino Meza Age: 75 years : 1945 Gender: Male Ht: 67 in Wt: 240 lbs BSA: 2.32 m2 HR: 100 bpm BP: 132 / 75 mmHg Heart Rhythm: Tachycardia, Sinus Rhythm Technical Quality: Good Exam Date: 08/15/2020 4:20 PM Exam Location: [facility] Card Pulmonary Patient Status: Inpatient Admit Date: 08/13/2020 Staff Ordering Physician: Johan Degroot MD Reinforcement Maker: Morales eDsai RDCS Attending Provider: Cornelius Torres MD Exam Type: CA echo doppler color flow Study Info Indications J96.01 - Acute respiratory failure with hypoxia Complete two-dimensional, color flow and Doppler transthoracic echocardiogram is performed. History/Risk Factors Covid+ w/ acute respiratory failure; CHF, DM, HTN. Summary 1. Complete two-dimensional, color flow and Doppler transthoracic echocardiogram is performed. 2. Normal left ventricular size with moderate concentric left ventricular hypertrophy. Good systolic function of all segments with an ejection fraction greater than 70%. Grade 1 diastolic dysfunction is present. 3. Mild left atrial enlargement. 4. Mild tricuspid regurgitation. 5. Severe pulmonary hypertension, estimated pulmonary arterial systolic pressure is 72 mmHg. 6. Sinus rhythm and sinus tachycardia noted. Left Ventricle Left ventricular chamber dimension is normal. Left ventricular systolic function is normal, estimated at >70%. There is moderately increased left ventricular wall thickness. Left ventricular septal wall motion is normal. The left ventricular diastolic function is grade I diastolic dysfunction. Right Ventricle Right ventricular chamber dimension is normal. Right ventricular systolic function is normal. Left Atria Left atrial chamber dimension is mildly enlarged. Right Atria Right atrial chamber dimension is normal. Aortic Valve The aortic valve is trileaflet. There is mild aortic valve sclerosis. There is no aortic valve stenosis. There is no aortic valve regurgitation. Pulmonic Valve The pulmonic valve is normal. There is no pulmonic valve stenosis. There is no pulmonic regurgitation. Mitral Valve The mitral valve has normal leaflets. There is no mitral valve stenosis. There is no mitral valve regurgitation. Tricuspid Valve The tricuspid valve leaflets are normal. There is no significant tricuspid valve stenosis. There is mild tricuspid valve regurgitation. Severe pulmonary hypertension, estimated pulmonary arterial systolic pressure is 72 mmHg. Pericardium/Pleural The pericardium appears normal. There is no pericardial effusion. Inferior Vena Cava Normal inferior vena cava with >50% collapse upon inspiration consistent with Empty right atrial pressure, 10 mmHg. Aorta The aortic root size at the sinus of Valsalva is normal. The prox ascending aorta size is normal. Left Ventricular Outflow Tract Name Value Normal LVOT 2D LVOT Diameter 2.1 cm LVOT Doppler LVOT Peak Gradient 6 mmHg LVOT Mean Gradient 3 mmHg LVOT VTI 23 cm LVO
[2020-08-15] MEDS: ALBUTEROL SULFATE (*SP) INHALER 2 PUFF INHALATION ×3 (02:53→14:05)
[2020-08-15] MEDS: CENTRAL LINE FLUSH 10 ML IV PUSH ×3 (04:03→20:31)
[2020-08-15 04:15] LABS: Basophils Percent Auto 0.1 % (0.2-1.2); Hematocrit 29.3 % (42.0-52.0); Hemoglobin 9.1 g/dL (14.0-18.0); Immature Granulocyte Absolute 0.09 K/mm3 (0.00-0.031); Immature Granulocyte Percent A 0.7 % (0-0.5); Lymphocytes Absolute Auto 0.64 K/mm3 (0.9-3.2); Lymphocytes Percent Auto 4.8 % (18.3-44.2); Mean Corpuscular HGB Conc 31.1 g/dl (32-36); Mean Corpuscular Hemoglobin 25.9 pg (26-34); Mean Corpuscular Volume 83.2 fl (80-100); Mean Platelet Volume 11.7 fl (7.4-10.4); Monocytes Absolute Auto 0.6 K/mm3 (0.1-0.6); Monocytes Percent Auto 4.2 % (2.6-8.5); Neutrophils Absolute Auto 11.9 K/mm3 (1.3-6.7); Neutrophils Percent Auto 90.2 % (45.5-73.1); Platelet Count Result 148 k/mm3 (150-375); Red Blood Count 3.52 M/mm3 (4.6-6.20); Red Cell Distribution Width 14.8 % (11.5-14.5); White Blood Count 13.2 K/mm3 (4.5-10.0)
[2020-08-15 04:57] LABS: CRP 26.3 mg/dL (<1.0)
[2020-08-15 07:08] LABS: Crenated RBC 1+ (NORMAL); Ovalocytes 1+ (NORMAL); Poikilocytosis 2+ (NORMAL)
[2020-08-15] MEDS: DEXAMETHASONE SOD PHOS INJ 4 MG/ML VIAL 6 MG IV PUSH (09:41)
[2020-08-15] MEDS: ENOXAPARIN 40 MG/0.4 ML SYRINGE SUB-Q ×2 (09:41→20:32)
[2020-08-15 10:02] LABS: Alanine Aminotransferase 27 U/L (4-50); Alkaline Phosphatase 98 U/L (38-126); Anion Gap 5 mmol/L (8-16); Aspartate Amino Transferase 54 U/L (17-59); Bilirubin,Total 0.5 mg/dL (0.2-1.3); Blood Urea Nitrogen 55 mg/dL (9-20); Calcium 7.7 mg/dL (8.4-10.2); Carbon Dioxide 28 mmol/L (22-30); Chloride 109 mmol/L (98-107); Estimated CRCL calculation 23 ml/min; Estimated Glomerular Filt Rate 26; Glucose 267 mg/dL (75-110); Sodium 142 mmol/L (137-145)
--- NOTE | 2020-08-15 12:25 | PC.NURSE ---
This patient, Faustino Meza, was transferred to [icu ] on 08/15/20 at 1145 Personal belongings sent with patient. Report given to [ TRINA Lopez. Appropriate documentation sent with patient.
--- NOTE | 2020-08-15 14:29 | WPDCNINT ---
Assessment and Plan Assessment and plan (1) Acute on chronic respiratory failure with hypoxia and hypercapnia: Code(s): J96.21 - Acute and chronic respiratory failure with hypoxia; J96.22 - Acute and chronic respiratory failure with hypercapnia Status: Acute Assessment and Plan: Secondary to COVID-19 pneumonia and possible component of congestive heart failure Patient was given Lasix early this morning but does not appear to be any significant volume overload at this time.. He has currently on BiPAP 16/8 and 100% and maintaining his saturations in 90s. He is tachypneic but not in any respiratory distress. I will continue to NIPPV and close ICU monitoring. He may need intubation if continues to get worse. Continue empiric antibiotic therapy with Rocephin azithromycin SARS-CoV-2 PCR positive 08/13 Patient is in Airborne, Droplet and Contact Isolation Continue dexamethasone Not a candidate for remdesivir due to elevated creatinine I encouraged patient to lay prone as much as possible Bronchodilators Follow inflammatory periodically Blood and sputum culture are pending at this time (2) COVID-19: Code(s): U07.1 - COVID-19 Status: Acute (3) Pneumonia: Qualifiers: Laterality: unspecified laterality Lung location: unspecified part of lung Pneumonia type: due to unspecified organism Qualified Code(s): J18.9 - Pneumonia, unspecified organism Code(s): J18.9 - Pneumonia, unspecified organism Status: Acute Assessment and Plan: See above (4) Renal failure: Qualifiers: Renal failure chronicity: unspecified chronicity Qualified Code(s): N19 - Unspecified kidney failure Code(s): N19 - Unspecified kidney failure Status: Acute Assessment and Plan: MARCO A with baseline creatinine unknown Hold further IV fluids and Lasix Monitor renal function. Avoid nephrotoxic agents, renally dose medications. Check CK level and renal ultrasound (5) Abnormal urinalysis: Code(s): R82.90 - Unspecified abnormal findings in urine Status: Acute Assessment and Plan: r/o UTI. continue IV antibiotics. Urine culture is pending. (6) Diabetes mellitus: Qualifiers: Diabetes mellitus complication status: without complication Diabetes mellitus terminal press operator insulin use: without senior living use Diabetes mellitus type: type 2 Qualified Code(s): E11.9 - Type 2 diabetes mellitus without complications Code(s): E11.9 - Type 2 diabetes mellitus without complications Status: Chronic Assessment and Plan: Accuchecks, SSI coverage, hypoglycemic protocol. (7) Hypertension: Qualifiers: Hypertension type: unspecified Qualified Code(s): I10 - Essential (primary) hypertension Code(s): I10 - Essential (primary) hypertension Status: Chronic Assessment and Plan: P.r.n. hydralazine and Lopressor (8) Hyperlipidemia: Qualifiers: Hyperlipidemia type: unspecified Qualified Code(s): E78.5 - Hyperlipidemia, unspecified Code(s): E78.5 - Hyperlipidemia, unspecified Status: Chronic Assessment and Plan: Continue atorvastatin PO when possible. Additional Plan DVT prophylaxis -Lovenox media does Stress ulcer prophylaxis -Protonix Nutrition -NPO Code Status - Full Code as per his which is Ember for once patient was transferred to ICU Total Critical Care Time - 30 minutes Due to a high probability of clinically significant, life threatening deterioration, the patient required my highest level of preparedness to intervene emergently and I personally spent this critical care time directly and personally managing the patient. This critical care time included obtaining a history; examining the patient; pulse oximetry; ordering and review of studies; arranging urgent treatment with development of a management plan; evaluation of patient's response to treatment; frequent reassessment; and
--- NOTE | 2020-08-15 16:28 | PM.IMPN ---
Progress Note: A&P Assessment and Plan (1) Acute on chronic respiratory failure with hypoxia and hypercapnia: Code(s): J96.21 - Acute and chronic respiratory failure with hypoxia; J96.22 - Acute and chronic respiratory failure with hypercapnia Status: Acute Assessment and Plan: The patient is clearly fluid overloaded with diffuse crackles in all lung bella and this is likely secondary to the 1 liter of LR bolus he recieved in the ER. He has been admitted to IMU and at this time he appears to be in severe acute respiratory distess and very well may need to be intubated shortly. We will initiate bipap, transfer to ICU, Administer Lasix IV now. Consider further IV lasix as needed. Check morning CXR. Check ABG now and after Bipap therapy. 08/15/20 16:28 Patient is 75-year-old male with history of chronic respiratory failure on home oxygen 3 L however patient had been desaturating on his home oxygen was increased to 4 L without much improvement, he was also having fever, some of the family member been positive for COVID-19, patient and family were concerned about it and was brought to the emergency department, patient COVID was positive on 08/13/2020 in ER he was desaturating and patient was placed on BiPAP. Today patient was on BiPAP requiring 100% oxygen and was desaturating and patient was transferred to ICU seen by information security officer, currently patient is maintaining his oxygen and does not need to be intubated, patient is a full code, will continue will continue dexamethasone patient cannot have remdesivir as he has elevated creatine, will continue present management appreciate information security officer and further recommendation to follow (2) Suspected 2019 novel coronavirus infection: Code(s): Z20.828 - Contact with and (suspected) exposure to other viral communicable diseases Status: Acute Assessment and Plan: The patient has been swabbed for COVID-19. We will initiate Dexamethasone IV daily. Continue droplet isolation and supplemental oxygen therapy. We will consider Remdesivir thearpy if the patient tests postiive for COVID-19. Lovenox. (3) Pneumonia: Qualifiers: Laterality: unspecified laterality Lung location: unspecified part of lung Pneumonia type: due to unspecified organism Qualified Code(s): J18.9 - Pneumonia, unspecified organism Code(s): J18.9 - Pneumonia, unspecified organism Status: Acute Assessment and Plan: r/o Viral vs. Bacterial pneumonia. Continue IV antibiotics for now. Bronchodilators. Steroid therapy. Blood and sputum cultures. RT assess and treat. (4) Severe sepsis: Code(s): A41.9 - Sepsis, unspecified organism; R65.20 - Severe sepsis without septic shock Status: Acute Assessment and Plan: with tachycardia and tachypnea and elevated lactic acid. Source of sepsis appears to be pulmonary but may also be urinary. continue IV antibiotics. blood/sputum/urine cultures. Check reflex lactic acid. Monitor urine output and vital signs closely. We will consider central line placement and vasopressors if necessary. (5) Renal failure: Qualifiers: Renal failure chronicity: unspecified chronicity Qualified Code(s): N19 - Unspecified kidney failure Code(s): N19 - Unspecified kidney failure Status: Acute Assessment and Plan: Acute vs. Chronic? Likely secondary to sepsis. Monitor renal function. Avoid nephrotoxic agents, renally dose medications. Consider nephrology consultation in am. (6) Abnormal urinalysis: Code(s): R82.90 - Unspecified abnormal findings in urine Status: Acute Assessment and Plan: r/o UTI. continue IV antibiotics. Urine culture is pending. (7) Normocytic anemia: Code(s): D64.9 - Anemia, unspecified Status: Acute Assessment and Plan: Acute vs. Chronic anemia - No signs of acute blood loss tonight. Monitor H/H, transfuse prn. (8) Diabetes mellitus: Qu
[2020-08-15] MEDS: INSULIN ASPART (*BKC) 100 UNITS/ML SUB-Q (16:38)
[2020-08-15 17:08] LABS: Creatine Kinase 693 U/L (55-170)
[2020-08-15 17:18] LABS: NT Pro B Type Natriuretic Pept 864 PG/ML (5-100)
[2020-08-15] MEDS: ALBUTEROL SULFATE NEB 2.5 MG/0.5 ML INH 5 MG INHALATION (19:20)
[2020-08-15 23:20] LABS: Glucose Point of Care 295 (65-105)
[2020-08-16] VITALS (44 sets, daily range): BP systolic 61–180; BP diastolic 47–100; PULSE 80–131; RESP 20–38; TEMP 35.3–37.9; O2SAT 78–100; BMI 37.7
--- NOTE | 2020-08-16 00:40 | PC.NURSE ---
Pt saturations in the 70's and patient will not stay on side. Attempted to prone pt but pt became extremely agitated fighting against turn. Currently on left side.
[2020-08-16] MEDS: INSULIN ASPART (*BKC) 100 UNITS/ML SUB-Q ×4 (01:07→17:57)
[2020-08-16] MEDS: ALBUTEROL SULFATE NEB 2.5 MG/0.5 ML INH 5 MG INHALATION ×3 (01:11→21:45)
[2020-08-16 04:40] LABS: Basophils Percent Auto 0.1 % (0.2-1.2); Hematocrit 29.6 % (42.0-52.0); Hemoglobin 9.2 g/dL (14.0-18.0); Immature Granulocyte Percent A 1.1 % (0-0.5); Lymphocytes Absolute Auto 0.45 K/mm3 (0.9-3.2); Lymphocytes Percent Auto 2.4 % (18.3-44.2); Mean Corpuscular HGB Conc 31.1 g/dl (32-36); Mean Corpuscular Volume 80.4 fl (80-100); Mean Platelet Volume 12.7 fl (7.4-10.4); Monocytes Absolute Auto 0.7 K/mm3 (0.1-0.6); Monocytes Percent Auto 3.7 % (2.6-8.5); Neutrophils Absolute Auto 17.7 K/mm3 (1.3-6.7); Neutrophils Percent Auto 92.7 % (45.5-73.1); Platelet Count Result 169 k/mm3 (150-375); Red Blood Count 3.68 M/mm3 (4.6-6.20); Red Cell Distribution Width 14.6 % (11.5-14.5)
[2020-08-16 05:07] LABS: Alanine Aminotransferase 24 U/L (4-50); Alkaline Phosphatase 96 U/L (38-126); Anion Gap 7 mmol/L (8-16); Aspartate Amino Transferase 52 U/L (17-59); Bilirubin,Total 0.4 mg/dL (0.2-1.3); Blood Urea Nitrogen 68 mg/dL (9-20); Calcium 7.8 mg/dL (8.4-10.2); Carbon Dioxide 28 mmol/L (22-30); Chloride 108 mmol/L (98-107); Estimated CRCL calculation 23 ml/min; Estimated Glomerular Filt Rate 26; Glucose 279 mg/dL (75-110); Lactate Dehydrogenase 1602 U/L (313-618); Magnesium 2.5 mg/dL (1.6-2.3); Sodium 143 mmol/L (137-145)
[2020-08-16 05:43] LABS: CRP 21.8 mg/dL (<1.0)
[2020-08-16 06:18] LABS: Platelet Estimate Adequate (Adequate)
[2020-08-16 06:20] LABS: Helmet Cells 1+ (NORMAL); Ovalocytes 1+ (NORMAL); Poikilocytosis 1+ (NORMAL)
[2020-08-16 06:21] LABS: Burr Cells 1+ (NORMAL)
[2020-08-16] MEDS: CENTRAL LINE FLUSH 10 ML IV PUSH ×4 (06:27→22:17)
[2020-08-16 06:31] LABS: Glucose Point of Care 293 (65-105)
[2020-08-16 06:31] LABS: Glucose Point of Care 263 (65-105)
[2020-08-16 06:37] LABS: Alveolar/Arterial O2 Gradient 627.3 mmHg; Base Excess ABG -1.3 mEq/l (+/-2.0); Carboxyhemoglobin 0.2 % THb (0-2.0); Fractional Inspired Oxygen 100 %; HCO3 ABG 23.1 mEq/l (22.0-26.0); Methemoglobin ABG 0.2 %THb (0-1.5); Oxygen Content ABG 12.3 %vol (16.0-22.0); Oxyhemoglobin 80.9 % THb (90.0-100.0); PCO2 ABG 37.3 mmHg (35.0-45.0); PO2 FiO2 Ratio Arterial Blood 0.48 %; Reduced Hemoglobin 18.7 %THb (0-5.0); Total Hemoglobin 10.8 g/dL (12.0-18.0); pH ABG 7.409 (7.350-7.450)
[2020-08-16 06:38] LABS: Device NON-INVASIVE VENT; Modified Allen's Test Pass; Oxygen Saturation ABG 84.7 % (95.0-100.0); PO2 ABG 48.4 mmHg (80.0-100.0); Site Drawn LEFT RADIAL
[2020-08-16 06:39] LABS: Non-Invasive Expiratory Pressure 10 CMH2O; Non-Invasive Inspiratory Pressure 18 CMH2O; Non-Invasive Vent Rate 20 /MIN
[2020-08-16] MEDS: PROPOFOL IV EMULSION 100 ML 32.76 MG IV CONT ×2 (08:15→16:17)
[2020-08-16] MEDS: RAPID SEQUENCE INTUBATION KIT 1 EACH (08:43)
[2020-08-16] MEDS: ROCURONIUM BROMIDE 50 MG/5 ML VIAL ×2 (08:44→16:17)
--- NOTE | 2020-08-16 08:46 | PM.CNPUL ---
Assessment and Plan Assessment and plan (1) COVID-19: Code(s): U07.1 - COVID-19 Status: Acute Assessment and Plan: - agree with Dexamethsone 6 mg IV daily for 10 days - not a candidate for Remdesivir due to renal failure (2) Acute hypoxemic respiratory failure: Code(s): J96.01 - Acute respiratory failure with hypoxia Status: Acute Assessment and Plan: - BiPAP settings of 16/8 with 100% and RR of 20 seem Ok for now but may need to be adjusted - agree with moving to ICU for closer monitoring, he is progressing and may need to be intubate. and patient want full code - would suggest goal O2 of greater than or equal to 88% on while on NIV or high flow. (3) COPD (chronic obstructive pulmonary disease): Code(s): J44.9 - Chronic obstructive pulmonary disease, unspecified Status: Acute Assessment and Plan: - Albuterol 2.5 mg/ Atrovent 0.5 mg Q6h - Pulmicort 0.5 mg bid (4) CHF (congestive heart failure): Code(s): I50.9 - Heart failure, unspecified Status: Acute Assessment and Plan: - Monitor I/Os and keep euvolemic to slightly hypovolemic History of Present Illness History of Present Illness Consult date: 08/15/20 Chief complaint: Acute Respiratory Failure, Pneumonia Narrative: 75 y/o male with history of COPD, CHF, CAD, REMI, HTN, hyperlipidemia, Dementia, DM II presents with non productive, dyspnea, decreased appetite and chills. He was found to have COVID-19. He and his ( by phone) says that he began to develop symptoms about two days after having family over for Thanks Giving. Currently he looks comfotable on BIPAP 16/8, 100% backup rate of 20 I time of 1.00 but sats are borderline at 89%. He says he feels a little better on BIPAP Review of Systems Review of Systems: All systems reviewed & are unremarkable except as noted in HPI and below PMFSH Past Medical History Medical History Chronic respiratory failure Dementia Diabetes mellitus Hyperlipidemia Hypertension Family History Family History Other Unknown family medical history Social History Social History Smoking packs per day: 4 Smoking cigarettes per day: 80.0 Years smoked: 60 Smoking pack-years: 240.00 Smoking status: Former smoker Tobacco type: cigarettes Alcohol intake: former Substance use: never Gender identity (if verbalized by the patient): Male Spiritual care concerns: No Meds Home Medications and Allergies Home Medications Medication Instructions Recorded Confirmed Type aspirin [Aspir-81] 81 mg PO DAILY 08/13/20 08/13/20 History atorvastatin 40 mg PO HS 08/13/20 08/13/20 History budesonide-formoterol [Symbicort] 2 puff INHALATION Q12H 08/13/20 08/13/20 History calcitriol 0.25 mcg PO DAILY 08/13/20 08/13/20 History diltiazem HCl 360 mg PO DAILY 08/13/20 08/13/20 History donepezil 10 mg PO DAILY 08/13/20 08/13/20 History doxazosin 2 mg PO HS 08/13/20 08/13/20 History ergocalciferol (vitamin D2) 50,000 unit PO DAILY 08/13/20 08/13/20 History glimepiride 2 mg PO DAILY 08/13/20 08/13/20 History insulin degludec [Tresiba 50 unit SUBCUT DAILY 08/13/20 08/13/20 History FlexTouch U-200] losartan 100 mg PO DAILY 08/13/20 08/13/20 History memantine 5 mg PO HS 08/13/20 08/13/20 History oxybutynin chloride 5 mg PO DAILY 08/13/20 08/13/20 History Allergies Allergy/AdvReac Type Severity Reaction Status Date / Time No Known Allergies Allergy Verified 08/13/20 20:15 Vital Signs Vital Signs - 24 hr 08/15/20 10:00 08/15/20 11:56 08/15/20 12:00 Temperature 36.6 C Pulse Rate 103 H 105 H 92 Respiratory Rate 21 H 26 H Blood Pressure 165/91 H Pulse Oximetry 88 L 88 L 08/15/20 14:00 08/15/20 14:06 08/15/20 15:40 Temperature Pulse Rate 95 101 H 96 Respiratory Rate 23 H 31 H Blo
--- NOTE | 2020-08-16 09:04 | P.PCNBED_ITS ---
Procedures Intubation Intubation Date: 08/16/20 Intubation Time: 08:30 Consent: Consent was obtained from patient's by phone A pre-procedural Time-Out was completed immediately before starting the procedure and confirmed: Patient Identification, Site, Procedure, Patient Position and the Availability of Requisite Equipment: Yes Sedative: etomidate Mg given: 20 Paralytic: succinylcholine Mg given: 100 Laryngoscope: fiber optic video scope Assist device used: fiber optic device ET tube size: 7.5 Tube secured depth (cm): 24 Tube secured location: lips Tube placement confirmation: visualized tube passing through cords, equal breath sounds bilaterally and confirmation by capnometry Patient tolerated procedure: other (Be saturated post intubation, patient had to be bagged) Intubation complications: hypoxia Additional comments: Patient started with saturation of 70s on BiPAP, patient was bag ventilated prior to intubation to get his sats close to 90, patient was intubated without any difficulty, post intubation patient was asynchronous with the ventilator and desaturated. ET tube was adjusted after reviewing chest x- ray. Patient was ventilated with bag and PEEP valve. Patient was paralyzed with rocuronium. Saturation improved to 90. Peep had to be increased up to 20 to recruit his lungs
[2020-08-16] MEDS: SODIUM CHLORIDE 0.9% IV 500 ML IV CONT (09:24)
[2020-08-16] MEDS: NOREPINEPHRINE 8 MG/D5W 250 ML 8 MG/250 ML BAG 18.75 MG IV CONT (09:25)
[2020-08-16] MEDS: ENOXAPARIN 40 MG/0.4 ML SYRINGE SUB-Q ×2 (09:26→20:34)
[2020-08-16] MEDS: DEXAMETHASONE SOD PHOS INJ 4 MG/ML VIAL 6 MG IV PUSH (09:27)
[2020-08-16 09:32] LABS: Alveolar/Arterial O2 Gradient 488.8 mmHg; Base Excess ABG -3.9 mEq/l (+/-2.0); Carboxyhemoglobin 0.3 % THb (0-2.0); Device VENTILATOR; Fractional Inspired Oxygen 100 %; Methemoglobin ABG 0.3 %THb (0-1.5); Modified Allen's Test Pass; Oxygen Content ABG 15.6 %vol (16.0-22.0); Oxygen Saturation ABG 99.1 % (95.0-100.0); Oxyhemoglobin 97.7 % THb (90.0-100.0); PCO2 ABG 43.5 mmHg (35.0-45.0); PO2 ABG 180.7 mmHg (80.0-100.0); PO2 FiO2 Ratio Arterial Blood 1.81 %; Reduced Hemoglobin 1.7 %THb (0-5.0); Site Drawn RIGHT RADIAL; Total Hemoglobin 11.1 g/dL (12.0-18.0); pH ABG 7.322 (7.350-7.450)
[2020-08-16 09:33] LABS: Arterial Blood Gas PEEP 18 cmH2O; Arterial Blood Gas Tidal Volume 450 ml; Arterial Blood Gas Vent Mode ASSIST CONTROL; Arterial Blood Gas Ventilator rate 21 /MIN
--- NOTE | 2020-08-16 10:40 | WPDINTPN ---
Progress Note: A&P Assessment and Plan (1) Acute on chronic respiratory failure with hypoxia and hypercapnia: Code(s): J96.21 - Acute and chronic respiratory failure with hypoxia; J96.22 - Acute and chronic respiratory failure with hypercapnia Status: Acute Assessment and Plan: Secondary to COVID-19 pneumonia and possible component of congestive heart failure. Patient was given Lasix for 1st couple days with no improvement Admitted 08/13, BiPAP 08/14, intubated 08/16 Worsening hypoxia patient intubated today emergently due to persistent low saturation in 70s despite being on BiPAP Chest x-ray reviewed and ABG pending Peep set at 18, FiO2 at 100% Will try prone ventilation once patient stabilizes Continue empiric antibiotic therapy with Rocephin azithromycin Bronchodilators Blood and sputum culture are negative as of now (2) COVID-19: Code(s): U07.1 - COVID-19 Status: Acute Assessment and Plan: SARS-CoV-2 PCR positive 08/13 Patient is in Airborne, Droplet and Contact Isolation Continue dexamethasone Not a candidate for remdesivir due to elevated creatinine Follow inflammatory periodically (3) Pneumonia: Qualifiers: Laterality: unspecified laterality Lung location: unspecified part of lung Pneumonia type: due to unspecified organism Qualified Code(s): J18.9 - Pneumonia, unspecified organism Code(s): J18.9 - Pneumonia, unspecified organism Status: Acute Assessment and Plan: See above (4) Shock: Code(s): R57.9 - Shock, unspecified Status: Acute Assessment and Plan: Patient hypertensive post intubation. Likely secondary to positive pressure ventilation and sedation 500 cc normal saline bolus, Levophed titration to maintain map (5) Renal failure: Qualifiers: Renal failure chronicity: unspecified chronicity Qualified Code(s): N19 - Unspecified kidney failure Code(s): N19 - Unspecified kidney failure Status: Acute Assessment and Plan: MARCO A with baseline creatinine unknown Hold further Lasix Gentle hydration for next 24 hours Monitor renal function. Avoid nephrotoxic agents, renally dose medications. CK level 693 Pending renal ultrasound (6) Abnormal urinalysis: Code(s): R82.90 - Unspecified abnormal findings in urine Status: Acute Assessment and Plan: r/o UTI. continue IV antibiotics. Urine culture is pending. (7) Diabetes mellitus: Qualifiers: Diabetes mellitus type: type 2 Diabetes mellitus director hair insulin use: without director hair use Diabetes mellitus complication status: without complication Qualified Code(s): E11.9 - Type 2 diabetes mellitus without complications Code(s): E11.9 - Type 2 diabetes mellitus without complications Status: Chronic Assessment and Plan: Accuchecks, SSI coverage, hypoglycemic protocol. (8) Hyperlipidemia: Qualifiers: Hyperlipidemia type: unspecified Qualified Code(s): E78.5 - Hyperlipidemia, unspecified Code(s): E78.5 - Hyperlipidemia, unspecified Status: Chronic Assessment and Plan: Continue atorvastatin Additional Plan DVT prophylaxis -Lovenox intermediate does Stress ulcer prophylaxis -Protonix Nutrition -start tube feed Code Status -I spoke to patient's and daughter by phone this morning and they request patient to be focal Total Critical Care Time - 60 minutes Due to a high probability of clinically significant, life threatening deterioration, the patient required my highest level of preparedness to intervene emergently and I personally spent this critical care time directly and personally managing the patient. This critical care time included obtaining a history; examining the patient; pulse oximetry; ordering and review of studies; arranging urgent treatment with development of a management plan; evaluation of patient's response to treatment; frequent reassessment; and discus
[2020-08-16] MEDS: PROPOFOL IV EMULSION 100 ML 22.93 MG IV CONT ×2 (12:20→20:06)
[2020-08-16] MEDS: FENTANYL 2,500MCG/NS250ML(*CRX 2,500 MCG/250 ML BAG 10 MCG IV CONT (12:22)
[2020-08-16] MEDS: IPRATROPIUM BR 0.02% INH SOLN 0.5 MG/2.5 ML VIAL INHALATION ×2 (14:18→21:45)
[2020-08-16 15:29] LABS: Glucose Point of Care 307 (65-105)
[2020-08-16 18:35] LABS: Glucose Point of Care 297 (65-105)
[2020-08-16] MEDS: BUDESONIDE RESPULE NEB 0.5 MG/2 ML AMP INHALATION (21:50)
[2020-08-17] VITALS (36 sets, daily range): BP systolic 113–135; BP diastolic 52–64; PULSE 71–88; RESP 21–24; TEMP 36–36.6; O2SAT 91–97
[2020-08-17] MEDS: INSULIN ASPART (*BKC) 100 UNITS/ML SUB-Q ×2 (00:02→06:50)
[2020-08-17] MEDS: PROPOFOL IV EMULSION 100 ML 22.93 MG IV CONT ×6 (00:16→23:05)
[2020-08-17 00:24] LABS: Glucose Point of Care 325 (65-105)
[2020-08-17] MEDS: IPRATROPIUM BR 0.02% INH SOLN 0.5 MG/2.5 ML VIAL INHALATION ×4 (03:12→20:55)
[2020-08-17] MEDS: ALBUTEROL SULFATE NEB 2.5 MG/0.5 ML INH 5 MG INHALATION ×4 (03:12→20:55)
[2020-08-17 04:48] LABS: Basophils Percent Auto 0.1 % (0.2-1.2); Hematocrit 28.6 % (42.0-52.0); Hemoglobin 8.8 g/dL (14.0-18.0); Immature Granulocyte Absolute 0.16 K/mm3 (0.00-0.031); Immature Granulocyte Percent A 1.1 % (0-0.5); Lymphocytes Absolute Auto 0.45 K/mm3 (0.9-3.2); Lymphocytes Percent Auto 3.1 % (18.3-44.2); Mean Corpuscular HGB Conc 30.8 g/dl (32-36); Mean Corpuscular Hemoglobin 25.7 pg (26-34); Mean Corpuscular Volume 83.4 fl (80-100); Mean Platelet Volume 12.7 fl (7.4-10.4); Monocytes Absolute Auto 0.6 K/mm3 (0.1-0.6); Monocytes Percent Auto 4.2 % (2.6-8.5); Neutrophils Absolute Auto 13.3 K/mm3 (1.3-6.7); Neutrophils Percent Auto 91.5 % (45.5-73.1); Platelet Count Result 174 k/mm3 (150-375); Red Blood Count 3.43 M/mm3 (4.6-6.20); White Blood Count 14.5 K/mm3 (4.5-10.0)
[2020-08-17 05:08] LABS: Alveolar/Arterial O2 Gradient 336.5 mmHg; Base Excess ABG -4.3 mEq/l (+/-2.0); Carboxyhemoglobin 0.3 % THb (0-2.0); Device VENTILATOR; Fractional Inspired Oxygen 65 %; HCO3 ABG 22.2 mEq/l (22.0-26.0); Methemoglobin ABG 0.2 %THb (0-1.5); Modified Allen's Test Unable to perform; Oxygen Content ABG 15.7 %vol (16.0-22.0); Oxygen Saturation ABG 93.9 % (95.0-100.0); Oxyhemoglobin 92.6 % THb (90.0-100.0); PCO2 ABG 46.5 mmHg (35.0-45.0); PO2 ABG 76.4 mmHg (80.0-100.0); PO2 FiO2 Ratio Arterial Blood 1.18 %; Reduced Hemoglobin 6.9 %THb (0-5.0); Site Drawn RIGHT RADIAL; pH ABG 7.297 (7.350-7.450)
[2020-08-17 05:09] LABS: Arterial Blood Gas PEEP 16 cmH2O; Arterial Blood Gas Tidal Volume 450 ml; Arterial Blood Gas Vent Mode ASSIST CONTROL; Arterial Blood Gas Ventilator rate 21 /MIN
[2020-08-17 05:13] LABS: Alanine Aminotransferase 21 U/L (4-50); Albumin Level 2.8 g/dL (3.5-5.1); Alkaline Phosphatase 88 U/L (38-126); Anion Gap 5 mmol/L (8-16); Aspartate Amino Transferase 40 U/L (17-59); Bilirubin,Total 0.4 mg/dL (0.2-1.3); Blood Urea Nitrogen 85 mg/dL (9-20); CRP 21.8 mg/dL (<1.0); Calcium 7.4 mg/dL (8.4-10.2); Carbon Dioxide 27 mmol/L (22-30); Chloride 109 mmol/L (98-107); Estimated CRCL calculation 19 ml/min; Estimated Glomerular Filt Rate 20; Glucose 342 mg/dL (75-110); Magnesium 2.8 mg/dL (1.6-2.3); Sodium 141 mmol/L (137-145)
[2020-08-17] MEDS: CENTRAL LINE FLUSH 10 ML IV PUSH ×4 (06:50→22:35)
[2020-08-17 07:29] LABS: Glucose Point of Care 310 (65-105)
[2020-08-17] MEDS: ENOXAPARIN 40 MG/0.4 ML SYRINGE SUB-Q ×2 (08:01→20:18)
[2020-08-17] MEDS: DEXAMETHASONE SOD PHOS INJ 4 MG/ML VIAL 6 MG IV PUSH (08:01)
[2020-08-17] MEDS: BUDESONIDE RESPULE NEB 0.5 MG/2 ML AMP INHALATION ×2 (08:16→20:55)
--- NOTE | 2020-08-17 09:09 | WPDINTPN ---
Progress Note: A&P Assessment and Plan (1) Acute on chronic respiratory failure with hypoxia and hypercapnia: Code(s): J96.21 - Acute and chronic respiratory failure with hypoxia; J96.22 - Acute and chronic respiratory failure with hypercapnia Status: Acute Assessment and Plan: Secondary to COVID-19 pneumonia and possible component of congestive heart failure. Patient was given Lasix for 1st couple days with no improvement Admitted 08/13, BiPAP 08/14, intubated 08/16 Patient was ventilated in prone position overnight and changed to supine this morning Chest x-ray reviewed and ABG pending Peep set at 16, FiO2 is weaned down to 60% this morning. Rate increased to 24 Will try prone ventilation again today Continue empiric antibiotic therapy with Rocephin azithromycin Bronchodilators Blood and sputum culture are negative as of now (2) COVID-19: Code(s): U07.1 - COVID-19 Status: Acute Assessment and Plan: SARS-CoV-2 PCR positive 08/13 Patient is in Airborne, Droplet and Contact Isolation Continue dexamethasone Not a candidate for remdesivir due to elevated creatinine Follow inflammatory periodically (3) Pneumonia: Qualifiers: Laterality: unspecified laterality Lung location: unspecified part of lung Pneumonia type: due to unspecified organism Qualified Code(s): J18.9 - Pneumonia, unspecified organism Code(s): J18.9 - Pneumonia, unspecified organism Status: Acute Assessment and Plan: See above (4) Shock: Code(s): R57.9 - Shock, unspecified Status: Acute Assessment and Plan: Patient hypertensive post intubation. Likely secondary to positive pressure ventilation and sedation 500 cc normal saline bolus, Levophed titration to maintain map (5) Renal failure: Qualifiers: Renal failure chronicity: unspecified chronicity Qualified Code(s): N19 - Unspecified kidney failure Code(s): N19 - Unspecified kidney failure Status: Acute Assessment and Plan: MARCO A with baseline creatinine unknown Creatinine worsened Gentle hydration for next 24 hours Consult nephrology Monitor renal function. Avoid nephrotoxic agents, renally dose medications. CK level 693 Renal ultrasound IMPRESSION:1. Mild atrophy of right kidney. No hydronephrosis. (6) Abnormal urinalysis: Code(s): R82.90 - Unspecified abnormal findings in urine Status: Acute Assessment and Plan: r/o UTI. continue IV antibiotics. 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 [facility] use Diabetes mellitus complication status: without complication Qualified Code(s): E11.9 - Type 2 diabetes mellitus without complications Code(s): E11.9 - Type 2 diabetes mellitus without complications Status: Chronic Assessment and Plan: Accuchecks, SSI coverage And Lantus (8) Hyperlipidemia: Qualifiers: Hyperlipidemia type: unspecified Qualified Code(s): E78.5 - Hyperlipidemia, unspecified Code(s): E78.5 - Hyperlipidemia, unspecified Status: Chronic Assessment and Plan: Continue atorvastatin Additional Plan DVT prophylaxis -Lovenox intermediate does Stress ulcer prophylaxis -Protonix Nutrition -continue tube feed Code Status -I spoke to patient's and daughter by phone and they request patient to be full code Total Critical Care Time - 30 minutes Due to a high probability of clinically significant, life threatening deterioration, the patient required my highest level of preparedness to intervene emergently and I personally spent this critical care time directly and personally managing the patient. This critical care time included obtaining a history; examining the patient; pulse oximetry; ordering and review of studies; arranging urgent treatment with development of a management plan; evaluation of pat
[2020-08-17] MEDS: INSULIN GLARGINE (*BKC) 100 UNITS/ML 20 UNITS SUB-Q (09:33)
[2020-08-17] MEDS: SODIUM CHLORIDE 0.9% IV 1,000 ML 100 ML IV CONT ×2 (09:41→23:00)
[2020-08-17 10:03] LABS: Glucose Point of Care 430 (65-105)
[2020-08-17 10:47] LABS: Thyroid Stimulating Hormone 0.063 uIU/mL (0.465-4.680)
[2020-08-17] MEDS: INSULIN HUMAN REGULAR (*BKC) 100 UNITS in SODIUM CHLORIDE 0.9% IV 99 ML 7 UNITS IV CONT (11:00)
--- NOTE | 2020-08-17 11:01 | PM.PNPUL ---
Progress Note: A&P Assessment and Plan (1) COVID-19: Code(s): U07.1 - COVID-19 Status: Acute (2) COPD (chronic obstructive pulmonary disease): Code(s): J44.9 - Chronic obstructive pulmonary disease, unspecified Status: Acute Assessment and Plan: - continue duonebs and pulmicort as ordered (3) CHF (congestive heart failure): Code(s): I50.9 - Heart failure, unspecified Status: Acute (4) ARDS (adult respiratory distress syndrome): Code(s): J80 - Acute respiratory distress syndrome Status: Acute Assessment and Plan: - attempt to bring down TV to < 400 ml ( 6 ml/kg) and plateau < 30 - agree with proninng preferrable 16 hours/day - attempt to keep euvolemic Subjective Date/time seen: 08/17/20 11:01 Interval history: Intubated and sedated with ARDS from COVID-19. Oxygenation weaning. Currently on TV of 450, 6 ml/kg TV based on ideal body weight is 396 ml Review of Systems Review of Systems: All systems reviewed & are unremarkable except as noted in HPI and below Exam Const: General: cooperative, comfortable, no acute distress, well developed, alert, awake and Physically active Nutritional Appearance: obese Orientation/consciousness: oriented to person, oriented to place, oriented to time and patient oriented x3 HENMT: Head: normal to inspection, normocephalic and atraumatic Eyes: General: appearance normal, both eyes and all related structures Neck: Neck: normal visual inspection, trachea midline and supple Resp: Effort & Inspection: normal respiratory effort and able to speak in complete sentences Auscultation: breath sounds absent and diminished lung sounds Cardio: Jugular venous distension: no JVD Rate: regular rate Rhythm: regular rhythm Heart sounds: S1 normal heart sound present and S2 normal heart sound present GI: Inspection: normal to inspection Auscultation: normal bowel sounds Skin: General skin exam: normal color and no rashes or lesions noted Neuro: General: oriented to person, oriented to place, oriented to time and patient oriented x3 Cognition (Neuro): normal cognition Speech: normal speech Extrem: General: normal to inspection and no clubbing, cyanosis or edema Psych: Appearance: grossly normal and well kempt Mental Status: mental status grossly normal Objective Data Vital Signs Vital Signs: Vital Signs - 24 hr 08/17/20 11:15 08/17/20 11:19 08/17/20 11:45 Temperature 36.4 C Pulse Rate 72 72 75 Respiratory Rate 24 H 24 H 24 H Blood Pressure 126/54 L Pulse Oximetry 96 96 08/17/20 13:45 08/17/20 13:53 08/17/20 13:55 Temperature Pulse Rate 82 80 81 Respiratory Rate 24 H 24 H 24 H Blood Pressure Pulse Oximetry 92 08/17/20 13:56 08/17/20 13:59 08/17/20 15:21 Temperature 36.4 C L 36.2 C L Pulse Rate 81 81 80 Respiratory Rate 24 H 24 H 24 H Blood Pressure 113/55 L 123/60 Pulse Oximetry 91 92 08/17/20 15:27 08/17/20 16:40 08/17/20 17:15 Temperature 36.4 C Pulse Rate 80 81 81 Respiratory Rate 24 H 24 H Blood Pressure 125/61 Pulse Oximetry 92 92 92 08/17/20 18:10 08/17/20 20:00 08/17/20 20:20 Temperature 36.1 C L Pulse Rate 85 84 80 Respiratory Rate 24 H 24 H Blood Pressure 131/64 Pulse Oximetry 97 96 08/17/20 20:56 08/17/20 22:00 08/17/20 23:42 Temperature Pulse Rate 79 80 75 Respiratory Rate 21 H 24 H Blood Pressure 133/60 Pulse Oximetry 94 95 08/18/20 00:00 08/18/20 02:00 08/18/20 02:15 Temperature 35.8 C L Pulse Rate 73 71 73 Respiratory Rate 24 H 24 H Blood Pressure 129/62 133/64 Pulse Oximetry 95 94 99 08/18/20 02:18 08/18/20 04:00 08/18/20 05:25 Temperature 35.8 C L Pulse Rate 73 87 76 Respiratory Rate 24 H 24 H Blood Pressure 146/62 H Pulse Oximetry 92 97 08/18/20 06:00 08/18/20 07:49 08/18/20 10:15 Temperature Pulse Rate 78 78 76 Respiratory Rate 24 H 24 H 24 H Blood Pressure 126/70 Pulse Oximetry 96
--- NOTE | 2020-08-17 11:09 | PCDIET ---
ICU Rounding Note: Patient tolerating Nepro at 20mL/hr with residuals 90mL and below. Continues on 30mL water flush every 4 hours. Recommended increasing Nepro to 35mL/hr while on current Propofol dose. MD adding insulin drip with plan to prone later today. Last recorded weight is 111.1kg which is increased from last review. +I/O. Bowel Motility: BM x 1 on 08/16/20. Labs Reviewed: Hgb (8.8), Hct (28.6), Glu (342), BUN (85), Cr (3.6), Alb (2.8), Sydnee Ca (8.36) Meds Noted: Levophed, Albuterol, Rocephin, Novolog, Atrovent, Decadron, Fentanyl, Lantus, Lopressor, IV Aspart, NS at 100mL/hr, Propofol (rate of 22.932mL/hr provides 605kcal per day) Additional Notes: Coccyx with friction area. Nepro at 35mL/hr will provide 1386kcal (1991kcal with Propofol at current rate) and 62g protein over 22 hours/day. Following daily in ICU rounds. Assessing/reassessing every Friday/Friday.
[2020-08-17 11:11] LABS: Glucose Point of Care 409 (65-105)
[2020-08-17] MEDS: FENTANYL 2,500MCG/NS250ML(*CRX 2,500 MCG/250 ML BAG 10 MCG IV CONT (11:45)
[2020-08-17 12:23] LABS: Glucose Point of Care 427 (65-105)
[2020-08-17 14:11] LABS: Glucose Point of Care 362 (65-105)
[2020-08-17 14:11] LABS: Glucose Point of Care 342 (65-105)
[2020-08-17 15:14] LABS: Glucose Point of Care 323 (65-105)
[2020-08-17 16:12] LABS: Glucose Point of Care 300 (65-105)
--- NOTE | 2020-08-17 16:54 | PM.CNNEP ---
Assessment and Plan Assessment and plan (1) Renal failure: Qualifiers: Renal failure chronicity: unspecified chronicity Qualified Code(s): N19 - Unspecified kidney failure Code(s): N19 - Unspecified kidney failure Status: Acute Assessment and Plan: unclear what baseline kidney function is is insult acute or acute on chronic?? suspect etiology multifactorial: - IV contrast exposure (on 08/13/[address] of chest) - altered hemodynamics/hypotension - infection (pneumonia + COVD-19) - concurrent ARB use prior to admission renal ultrasound noted follow-up on urine lytes follow repeat labs and UOP (2) Acute hypoxemic respiratory failure: Code(s): J96.01 - Acute respiratory failure with hypoxia Status: Acute Assessment and Plan: due to pneumonia, COVD-19, and maybe CHF did receive IV diuresis earlier in hospital stay intubated and on mechanical ventilation weaning as tolerated (3) Shock: Code(s): R57.9 - Shock, unspecified Status: Acute Assessment and Plan: no pressor therapy follow hemodynamics (4) COVID-19: Code(s): U07.1 - COVID-19 Status: Acute Assessment and Plan: tested positive on steroids not a candidate for remdesivir (due to renal disease) continue ventilator support (5) Pneumonia: Qualifiers: Laterality: unspecified laterality Lung location: unspecified part of lung Pneumonia type: due to unspecified organism Qualified Code(s): J18.9 - Pneumonia, unspecified organism Code(s): J18.9 - Pneumonia, unspecified organism Status: Acute Assessment and Plan: follow cultures on IV antibiotics for now Will continue to follow. History of Present Illness Reason for Consult Consult date: 08/17/20 Reason for consult: acute renal failure Chief Complaint Chief complaint: Acute Respiratory Failure, Pneumonia History of Present Illness Narrative: Most of the information I have obtained is from review of the electronic medical record as well as discussion with the physicians/ nurses involved in his care as the patient is unable to provide me with any history as he is currently intubated. The patient is a 75-year-old male With a past medical history as outlined below who presented to [facility] Emergency room with complaints of increased shortness of breath, productive cough, and fever. His constellation of symptoms (shortness of breath, productive cough, and fever ) have been apparently present for the last 3 days if not longer. He is on chronic home oxygen and his family noticed that he had been requiring more oxygen than baseline. Following this, is when the intermittent fever started as well. By the time of his presentation to the emergency room, he was requiring 4 L of oxygen when his family decided to bring him to be evaluated. His shortness of breath as well as the fevers had become more persistent in association with wheezing. He reportedly denied any nausea vomiting chest pain palpitations abdominal pain diarrhea or neurological issues. Workup and evaluation emergency room demonstrated the patient to be in mild to moderate respiratory distress and required high-flow oxygen therapy to help with his breathing. Routine blood test demonstrated a mild leukocytosis, mild anemia, and an elevated BUN and creatinine. He underwent a CT scan of his chest PE protocol which demonstrated scattered bilateral patchy consolidation and ground-glass opacities consistent with multifocal pneumonia with the appearance suspicious for COVID. He was apparently given IV fluids in the ER but then after the CT scan findings, was given IV Lasix. Appropriate cultures were obtained and he was swab for COVID-19 and started on broad-spectrum IV antibiotic therapy on the concern for possible bacterial pneumonia. He was sub
[2020-08-17 17:14] LABS: Glucose Point of Care 246 (65-105)
[2020-08-17] MEDS: INSULIN HUMAN REGULAR (*BKC) 100 UNITS in SODIUM CHLORIDE 0.9% IV 99 ML 5.6 UNITS IV CONT (18:57)
[2020-08-17] MEDS: ROCURONIUM BROMIDE 50 MG/5 ML VIAL IV PUSH (18:59)
[2020-08-17 19:04] LABS: Glucose Point of Care 130 (65-105)
[2020-08-17 19:04] LABS: Glucose Point of Care 180 (65-105)
[2020-08-17 21:14] LABS: Glucose Point of Care 108 (65-105)
[2020-08-17 21:14] LABS: Glucose Point of Care 160 (65-105)
[2020-08-17 22:26] LABS: Glucose Point of Care 134 (65-105)
[2020-08-18] VITALS (39 sets, daily range): BP systolic 116–146; BP diastolic 51–70; PULSE 71–93; RESP 10–29; TEMP 35.7–36.1; O2SAT 86–100
[2020-08-18 01:52] LABS: Glucose Point of Care 98 (65-105)
[2020-08-18 01:52] LABS: Glucose Point of Care 100 (65-105)
[2020-08-18 01:52] LABS: Glucose Point of Care 98 (65-105)
[2020-08-18] MEDS: ALBUTEROL SULFATE NEB 2.5 MG/0.5 ML INH 5 MG INHALATION ×3 (02:17→15:05)
[2020-08-18] MEDS: IPRATROPIUM BR 0.02% INH SOLN 0.5 MG/2.5 ML VIAL INHALATION ×3 (02:18→15:05)
[2020-08-18] MEDS: PROPOFOL IV EMULSION 100 ML 26.21 MG IV CONT ×4 (04:03→14:29)
[2020-08-18 04:09] LABS: Alveolar/Arterial O2 Gradient 331.1 mmHg; Base Excess ABG -4.3 mEq/l (+/-2.0); Carboxyhemoglobin 0.3 % THb (0-2.0); Fractional Inspired Oxygen 65 %; HCO3 ABG 21.7 mEq/l (22.0-26.0); Methemoglobin ABG 0.3 %THb (0-1.5); Oxygen Content ABG 12.2 %vol (16.0-22.0); Oxygen Saturation ABG 95.5 % (95.0-100.0); Oxyhemoglobin 94.3 % THb (90.0-100.0); PCO2 ABG 43.8 mmHg (35.0-45.0); PO2 ABG 84.7 mmHg (80.0-100.0); Reduced Hemoglobin 5.1 %THb (0-5.0); Total Hemoglobin 9.1 g/dL (12.0-18.0); pH ABG 7.313 (7.350-7.450)
[2020-08-18 04:11] LABS: Device VENTILATOR; Modified Allen's Test Pass; Site Drawn LEFT RADIAL
[2020-08-18 04:12] LABS: Arterial Blood Gas PEEP 5 cmH2O; Arterial Blood Gas Tidal Volume 450 ml; Arterial Blood Gas Vent Mode CMV; Arterial Blood Gas Ventilator rate 24 /MIN
[2020-08-18 04:26] LABS: Glucose Point of Care 83 (65-105)
[2020-08-18 04:26] LABS: Glucose Point of Care 127 (65-105)
[2020-08-18 04:26] LABS: Glucose Point of Care 108 (65-105)
[2020-08-18 04:41] LABS: Basophils Percent Auto 0.1 % (0.2-1.2); Hematocrit 28.1 % (42.0-52.0); Hemoglobin 8.8 g/dL (14.0-18.0); Immature Granulocyte Percent A 1.9 % (0-0.5); Lymphocytes Percent Auto 4.5 % (18.3-44.2); Mean Corpuscular HGB Conc 31.3 g/dl (32-36); Mean Corpuscular Hemoglobin 25.5 pg (26-34); Mean Corpuscular Volume 81.4 fl (80-100); Monocytes Absolute Auto 0.8 K/mm3 (0.1-0.6); Neutrophils Absolute Auto 13.8 K/mm3 (1.3-6.7); Neutrophils Percent Auto 88.5 % (45.5-73.1); Platelet Count Result 191 k/mm3 (150-375); Red Blood Count 3.45 M/mm3 (4.6-6.20); White Blood Count 15.7 K/mm3 (4.5-10.0)
[2020-08-18 05:10] LABS: Alanine Aminotransferase 20 U/L (4-50); Albumin Level 2.7 g/dL (3.5-5.1); Alkaline Phosphatase 95 U/L (38-126); Anion Gap 4 mmol/L (8-16); Aspartate Amino Transferase 39 U/L (17-59); Bilirubin,Total 0.3 mg/dL (0.2-1.3); Blood Urea Nitrogen 92 mg/dL (9-20); Calcium 7.6 mg/dL (8.4-10.2); Carbon Dioxide 28 mmol/L (22-30); Chloride 112 mmol/L (98-107); Estimated CRCL calculation 18 ml/min; Estimated Glomerular Filt Rate 18; Glucose 125 mg/dL (75-110); Lactate Dehydrogenase 1416 U/L (313-618); Magnesium 2.9 mg/dL (1.6-2.3); Potassium 4.3 mmol/L (3.4-5.0); Sodium 144 mmol/L (137-145)
[2020-08-18 05:21] LABS: CRP 15.4 mg/dL (<1.0)
[2020-08-18] MEDS: CENTRAL LINE FLUSH 10 ML IV PUSH ×4 (05:49→20:33)
[2020-08-18 06:29] LABS: Glucose Point of Care 153 (65-105)
[2020-08-18 06:29] LABS: Glucose Point of Care 149 (65-105)
[2020-08-18] MEDS: FENTANYL 2,500MCG/NS250ML(*CRX 2,500 MCG/250 ML BAG 12.5 MCG IV CONT (07:49)
[2020-08-18 08:13] LABS: Glucose Point of Care 140 (65-105)
[2020-08-18 08:57] LABS: Glucose Point of Care 195 (65-105)
[2020-08-18] MEDS: ENOXAPARIN 40 MG/0.4 ML SYRINGE SUB-Q ×2 (10:04→20:34)
[2020-08-18] MEDS: DEXAMETHASONE SOD PHOS INJ 4 MG/ML VIAL 6 MG IV PUSH (10:04)
[2020-08-18 10:13] LABS: Glucose Point of Care 169 (65-105)
[2020-08-18] MEDS: BUDESONIDE RESPULE NEB 0.5 MG/2 ML AMP INHALATION (10:14)
--- NOTE | 2020-08-18 10:45 | PCDIET ---
Nutrition Follow-Up Complete: Nutrition Diagnosis: Inadequate oral intake related to oral intubation as evidenced by NPO status. Nutrition Goal: Patient to meet estimated nutritional needs. Goal met. Patient tolerating Nepro at 35mL/hr goal rate with 30mL water flush every 4 hours. Residuals 170mL and below. Last recorded weight is 115 kg which is increased from last review. +I/O. Bowel Motility: +BM today. Labs Reviewed: Hgb (8.8), Hct (28.1), Glu (125), BUN (92), Cr (3.9), Alb (2.9), Sydnee Ca (8.64) Meds Noted: Propofol (rate of 26.208mL/hr provides 692kcal per day), Levophed, Albuterol, Azithromycin, Rocephin, Fentanyl, Lantus, Decadron, Atrovent, Lopressor, IV Aspart, Novolog Additional Notes: RN reporting some breakdown on face due to proning. Coccyx also with friction shear. Due to worsening renal function and lipids from Propofol, recommend keeping tube feedings at 35mL/hr for now. Will continue to monitor with same goal. Nutrition Monitoring and Evaluation: Follow up every Friday/Friday.
[2020-08-18] MEDS: INSULIN GLARGINE (*BKC) 100 UNITS/ML 20 UNITS SUB-Q (10:55)
[2020-08-18] MEDS: INSULIN ASPART (*BKC) 100 UNITS/ML SUB-Q ×4 (12:40→23:12)
--- NOTE | 2020-08-18 12:43 | WPDINTPN ---
Progress Note: A&P Assessment and Plan (1) Acute on chronic respiratory failure with hypoxia and hypercapnia: Code(s): J96.21 - Acute and chronic respiratory failure with hypoxia; J96.22 - Acute and chronic respiratory failure with hypercapnia Status: Acute Assessment and Plan: Secondary to COVID-19 pneumonia and possible component of congestive heart failure. Patient was given Lasix for 1st couple days with no improvement Admitted 08/13, BiPAP 08/14, intubated 08/16 Patient was ventilated in prone position overnight and changed to supine this morning Chest x-ray reviewed and ABG pending Peep set at 16, FiO2 is weaned down to 60% this morning. Rate increased to 24 Advance ET tube by 2 cm Will try prone ventilation again today Continue empiric antibiotic therapy with Rocephin azithromycin. Will complete course today Bronchodilators Blood and sputum culture are negative as of now (2) COVID-19: Code(s): U07.1 - COVID-19 Status: Acute Assessment and Plan: SARS-CoV-2 PCR positive 08/13 Patient is in Airborne, Droplet and Contact Isolation Continue dexamethasone Not a candidate for remdesivir due to elevated creatinine Follow inflammatory periodically (3) Pneumonia: Qualifiers: Laterality: unspecified laterality Lung location: unspecified part of lung Pneumonia type: due to unspecified organism Qualified Code(s): J18.9 - Pneumonia, unspecified organism Code(s): J18.9 - Pneumonia, unspecified organism Status: Acute Assessment and Plan: See above (4) Shock: Code(s): R57.9 - Shock, unspecified Status: Acute Assessment and Plan: Patient hypotensive post intubation. Likely secondary to positive pressure ventilation and sedation 500 cc normal saline bolus, Levophed titration to maintain map Currently off Levophed (5) Renal failure: Qualifiers: Renal failure chronicity: unspecified chronicity Qualified Code(s): N19 - Unspecified kidney failure Code(s): N19 - Unspecified kidney failure Status: Acute Assessment and Plan: MARCO A with baseline creatinine unknown Creatinine worsened Gentle hydration given yesterday with no major improvement Consulted nephrology Monitor renal function. Avoid nephrotoxic agents, renally dose medications. Renal ultrasound IMPRESSION:1. Mild atrophy of right kidney. No hydronephrosis. Patient may need dialysis Monitor intake and output (6) Abnormal urinalysis: Code(s): R82.90 - Unspecified abnormal findings in urine Status: Acute Assessment and Plan: r/o UTI. continue IV antibiotics. Urine culture is negative (7) Diabetes mellitus: Qualifiers: Diabetes mellitus type: type 2 Diabetes mellitus half-way insulin use: without rodent exterminator use Diabetes mellitus complication status: without complication Qualified Code(s): E11.9 - Type 2 diabetes mellitus without complications Code(s): E11.9 - Type 2 diabetes mellitus without complications Status: Chronic Assessment and Plan: Accuchecks, SSI coverage And Lantus (8) Hyperlipidemia: Qualifiers: Hyperlipidemia type: unspecified Qualified Code(s): E78.5 - Hyperlipidemia, unspecified Code(s): E78.5 - Hyperlipidemia, unspecified Status: Chronic Assessment and Plan: Continue atorvastatin Additional Plan DVT prophylaxis -Lovenox intermediate does Stress ulcer prophylaxis -Protonix Nutrition -continue tube feed Code Status -I spoke to patient's and daughter by phone and they request patient to be full code Total Critical Care Time - 32 minutes Due to a high probability of clinically significant, life threatening deterioration, the patient required my highest level of preparedness to intervene emergently and I personally spent this critical care time directly and personally managing the patient. This critical care time included obtaining a history; examining t
[2020-08-18 13:05] LABS: Glucose Point of Care 232 (65-105)
--- NOTE | 2020-08-18 13:29 | PM.PNPUL ---
Progress Note: A&P Assessment and Plan (1) COVID-19: Code(s): U07.1 - COVID-19 Status: Acute Assessment and Plan: on dexamethasone, too ill and too late to use remdesivir benefits from prone positioning; has some left facial swelling (2) COPD (chronic obstructive pulmonary disease): Code(s): J44.9 - Chronic obstructive pulmonary disease, unspecified Status: Acute Assessment and Plan: - continue duonebs and pulmicort as ordered - he was in the prone position overnight, now has moderate left facial edema, will recover on his back - vent changes today include change to AC mode 60%, PEEP 16, f = 24, and TV is 450; (3) CHF (congestive heart failure): Code(s): I50.9 - Heart failure, unspecified Status: Acute Assessment and Plan: (+) volume; up 4 kg today (4) ARDS (adult respiratory distress syndrome): Code(s): J80 - Acute respiratory distress syndrome Status: Acute Assessment and Plan: - TV now is 450 which is higher than 400 ml ( 6 ml/kg) and plateau < 30 - agree with proning however his face is really swollen, and he needs a break - attempt to keep euvolemic Subjective Date/time seen: 08/18/20 13:29 This 75 year old man is seen in follow up for COVID with acute respiratory failure on mechanical ventilator, FiO2 @ 60% with 16 of peep, tidal volume 450 frequency 24. He is sedated. He was prone overnight. He has some swelling in his left face and especially around the left orbit. He is volume overloaded with diffuse patchy infiltrates. His ETT is high, and this has been advanced. Acid base status is stable. BUN 92, creat 3.9; he is likely going to need HD soon. Insulin drip was turned off 10:55 and lantus started; he is on tube feeds with intense sliding scale Q 4 hours Review of Systems Review of Systems: ROS unobtainable: Yes unobtainable due to endotracheal tube (and sedation) Exam Const: General: comfortable (sedated with fentanyl 125 mcg/hour and propofol 40 mcg/kg/hour), no acute distress and well developed Nutritional Appearance: obese HENMT: Head: normal to inspection, normocephalic and atraumatic Eyes: Periorbital: periorbital findings abnormal (edema) left Neck: Neck: normal visual inspection, trachea midline and supple Resp: Effort & Inspection: normal respiratory effort Auscultation: diminished lung sounds Cardio: Rate: regular rate Rhythm: regular rhythm Heart sounds: S1 normal heart sound present, S2 normal heart sound present, no gallops, no murmurs and Other heart sounds present (distant cardiac tones ) GI: Inspection: normal to inspection Auscultation: Hypoactive bowel sounds present Skin: General skin exam: normal color and no rashes or lesions noted Neuro: General: other (sedated and intubated) Extrem: General: normal to inspection and no clubbing, cyanosis or edema Psych: Mental Status: other (sedated) Objective Data Vital Signs Vital Signs: Vital Signs - 24 hr 08/17/20 13:45 08/17/20 13:53 08/17/20 13:55 Temperature Pulse Rate 82 80 81 Respiratory Rate 24 H 24 H 24 H Blood Pressure Pulse Oximetry 92 08/17/20 13:56 08/17/20 13:59 08/17/20 15:21 Temperature 36.4 C L 36.2 C L Pulse Rate 81 81 80 Respiratory Rate 24 H 24 H 24 H Blood Pressure 113/55 L 123/60 Pulse Oximetry 91 92 08/17/20 15:27 08/17/20 16:40 08/17/20 17:15 Temperature 36.4 C Pulse Rate 80 81 81 Respiratory Rate 24 H 24 H Blood Pressure 125/61 Pulse Oximetry 92 92 92 08/17/20 18:10 08/17/20 20:00 08/17/20 20:20 Temperature 36.1 C L Pulse Rate 85 84 80 Respiratory Rate 24 H 24 H Blood Pressure 131/64 Pulse Oximetry 97 96 08/17/20 20:
--- NOTE | 2020-08-18 15:50 | PM.PNNEP ---
Progress Note: A&P Assessment and Plan (1) Renal failure: Qualifiers: Renal failure chronicity: unspecified chronicity Qualified Code(s): N19 - Unspecified kidney failure Code(s): N19 - Unspecified kidney failure Status: Acute Assessment and Plan: unclear what baseline kidney function is is insult acute or acute on chronic?? suspect etiology multifactorial: - IV contrast exposure (on 08/13/[address] of chest) - altered hemodynamics/hypotension - infection (pneumonia + COVD-19) - concurrent ARB use prior to admission renal ultrasound noted urine electrolytes pending follow repeat labs and UOP he remains at risk for requiring renal replacement therapy/dialysis (2) Acute hypoxemic respiratory failure: Code(s): J96.01 - Acute respiratory failure with hypoxia Status: Acute Assessment and Plan: due to pneumonia, COVD-19, and maybe CHF likely culminating in ARDS did receive IV diuresis earlier in hospital stay intubated and on mechanical ventilation weaning as tolerated (3) Shock: Code(s): R57.9 - Shock, unspecified Status: Acute Assessment and Plan: no pressor therapy currently follow hemodynamics (4) COVID-19: Code(s): U07.1 - COVID-19 Status: Acute Assessment and Plan: tested positive on steroids not a candidate for remdesivir (due to renal disease) continue ventilator support (5) Pneumonia: Qualifiers: Laterality: unspecified laterality Lung location: unspecified part of lung Pneumonia type: due to unspecified organism Qualified Code(s): J18.9 - Pneumonia, unspecified organism Code(s): J18.9 - Pneumonia, unspecified organism Status: Acute Assessment and Plan: follow cultures on IV antibiotics for now Long and extensive discussion (> 20 minutes) with patient's by phone regarding his deteriorating renal function and fluctuating urine output; she is aware of the possibility of dialysis and is in agreement with pursing if this intervention is needed. Will continue to follow. Subjective Date/time seen: 08/18/20 15:50 Continue to use prone positioning to optimize respiratory status; remains intubated/sedated at this time; acceptable hemodynamics at the time of my visit; no other acute issues overnight or earlier this AM; urine output seems to have declined in the last 24 hours. Exam Narrative: Exam Narrative: General: WD/WN male intubated/sedate Heart: normal S1 and S2; no rub Lungs: coarse breath sounds Abdomen: soft, nontender, nondistended, positive bowel sounds Extremities: no cyanosis or clubbing; no edema Skin: warm and intact Objective Data Vital Signs Vital Signs: Vital Signs Temp Pulse Resp BP Pulse Ox 08/18/20 15:48 85 26 H 08/18/20 15:47 85 26 H 08/18/20 15:13 73 26 H 08/18/20 15:08 72 95 08/18/20 15:06 71 26 H 08/18/20 14:29 75 26 H 08/18/20 12:17 78 96 08/18/20 10:52 83 24 H 08/18/20 10:32 81 24 H 08/18/20 10:19 80 96 08/18/20 10:15 76 24 H 08/18/20 10:00 78 10 L 118/63 97 08/18/20 08:00 35.7 C L 77 11 L 125/61 97 08/18/20 07:49 78 24 H 08/18/20 06:00 78 24 H 126/70 96 08/18/20 05:25 76 97 08/18/20 04:00 35.8 C L 87 24 H 146/62 H 92 08/18/20 02:18 73 24 H 08/18/20 02:15 73 99 08/18/20 02:00 71 24 H 133/64 94 08/18/20 00:00 35.8 C L 73 24 H 129/62 95 08/17/20 23:42 75 95 08/17/20 22:00 80 24 H 133/60 94 08/17/20 20:56 79 21 H 08/17/20 20:20 80 96 08/17/20 20:00 36.1 C L 84 24 H 131/64 97 08/17/20 18:10 85 24 H 08/17/20 17:15 36.4 C 81 24 H 125/61 92 08/17/20 16:40 81 92 Intake/Output Intake/Output: Intake & Output 08/15/20 08/16/20 08/17/20 08/18/20 23:59 23:59 23:59 23:59 Intake Total 2
[2020-08-18] MEDS: PROPOFOL IV EMULSION 100 ML 29.48 MG IV CONT (17:26)
[2020-08-18 17:47] LABS: Glucose Point of Care 358 (65-105)
[2020-08-18 18:00] LABS: Creatinine Urine 140.3 mg/dL; Total Protein Urine Random 51 mg/dL; Ur Ttl Prot Creatinine Ratio 0.36 mg/mg (0-0.20)
[2020-08-18 18:10] LABS: Sodium Urine Random 40 meq/L
[2020-08-18] MEDS: PROPOFOL IV EMULSION 100 ML 32.76 MG IV CONT (20:30)
[2020-08-18] MEDS: ROCURONIUM BROMIDE 50 MG/5 ML VIAL (20:32)
[2020-08-18 21:04] LABS: Glucose Point of Care 380 (65-105)
[2020-08-18] MEDS: ROCURONIUM BROMIDE 50 MG/5 ML VIAL IV PUSH (22:36)
[2020-08-18] MEDS: CISATRACURIUM BESYLATE 200 MG in DEXTROSE 5% 80 ML 10.35 ML IV CONT (22:54)
[2020-08-18] MEDS: PROPOFOL IV EMULSION 100 ML 34.5 MG IV CONT (22:58)
[2020-08-18] MEDS: FENTANYL 2,500MCG/NS250ML(*CRX 2,500 MCG/250 ML BAG 20 MCG IV CONT (22:59)
[2020-08-18 23:38] LABS: Glucose Point of Care 400 (65-105)
[2020-08-19] VITALS (43 sets, daily range): BP systolic 112–144; BP diastolic 49–60; PULSE 74–102; RESP 26–28; TEMP 34.6–36.1; O2SAT 93–99
[2020-08-19] MEDS: PROPOFOL IV EMULSION 100 ML 34.5 MG IV CONT ×8 (02:05→22:50)
[2020-08-19] MEDS: IPRATROPIUM BR 0.02% INH SOLN 0.5 MG/2.5 ML VIAL INHALATION ×3 (02:57→20:31)
[2020-08-19] MEDS: ALBUTEROL SULFATE NEB 2.5 MG/0.5 ML INH 5 MG INHALATION ×3 (02:57→20:31)
[2020-08-19 04:43] LABS: Alveolar/Arterial O2 Gradient 433.9 mmHg; Base Excess ABG -6.7 mEq/l (+/-2.0); Carboxyhemoglobin 0.2 % THb (0-2.0); Fractional Inspired Oxygen 80 %; Methemoglobin ABG 0.3 %THb (0-1.5); Oxygen Content ABG 13.3 %vol (16.0-22.0); Oxygen Saturation ABG 95.6 % (95.0-100.0); Oxyhemoglobin 94.4 % THb (90.0-100.0); PCO2 ABG 45.2 mmHg (35.0-45.0); PO2 FiO2 Ratio Arterial Blood 1.11 %; Reduced Hemoglobin 5.1 %THb (0-5.0); Total Hemoglobin 9.9 g/dL (12.0-18.0)
[2020-08-19 04:45] LABS: pH ABG 7.263 (7.350-7.450)
[2020-08-19 04:47] LABS: Arterial Blood Gas PEEP 16 cmH2O; Arterial Blood Gas Tidal Volume 400 ml; Arterial Blood Gas Vent Mode ASSIST CONTROL; Arterial Blood Gas Ventilator rate 26 /MIN; Device VENTILATOR; Modified Allen's Test Unable to perform; Site Drawn LEFT RADIAL
[2020-08-19] MEDS: CENTRAL LINE FLUSH 10 ML IV PUSH ×4 (05:03→20:12)
[2020-08-19 05:15] LABS: Basophils Percent Auto 0.1 % (0.2-1.2); Eosinophils Percent Auto 0.3 % (0-4.4); Hematocrit 29.9 % (42.0-52.0); Hemoglobin 9.2 g/dL (14.0-18.0); Immature Granulocyte Absolute 0.52 K/mm3 (0.00-0.031); Immature Granulocyte Percent A 3.8 % (0-0.5); Lymphocytes Absolute Auto 0.99 K/mm3 (0.9-3.2); Lymphocytes Percent Auto 7.2 % (18.3-44.2); Mean Corpuscular HGB Conc 30.8 g/dl (32-36); Mean Corpuscular Hemoglobin 26.1 pg (26-34); Mean Corpuscular Volume 84.7 fl (80-100); Mean Platelet Volume 12.7 fl (7.4-10.4); Monocytes Absolute Auto 0.7 K/mm3 (0.1-0.6); Monocytes Percent Auto 5.1 % (2.6-8.5); Neutrophils Absolute Auto 11.5 K/mm3 (1.3-6.7); Neutrophils Percent Auto 83.5 % (45.5-73.1); Platelet Count Result 194 k/mm3 (150-375); Red Blood Count 3.53 M/mm3 (4.6-6.20); Red Cell Distribution Width 15.3 % (11.5-14.5); White Blood Count 13.8 K/mm3 (4.5-10.0)
[2020-08-19 05:34] LABS: Magnesium 2.9 mg/dL (1.6-2.3)
[2020-08-19 05:43] LABS: Alanine Aminotransferase 18 U/L (4-50); Albumin Level 2.7 g/dL (3.5-5.1); Alkaline Phosphatase 108 U/L (38-126); Anion Gap 9 mmol/L (8-16); Aspartate Amino Transferase 28 U/L (17-59); Bilirubin,Total 0.3 mg/dL (0.2-1.3); Blood Urea Nitrogen 104 mg/dL (9-20); Calcium 7.6 mg/dL (8.4-10.2); Carbon Dioxide 23 mmol/L (22-30); Chloride 108 mmol/L (98-107); Estimated CRCL calculation 24 ml/min; Estimated Glomerular Filt Rate 26; Glucose 343 mg/dL (75-110); Potassium 4.6 mmol/L (3.4-5.0); Sodium 140 mmol/L (137-145)
[2020-08-19 05:53] LABS: CRP 17.9 mg/dL (<1.0)
[2020-08-19] MEDS: INSULIN ASPART (*BKC) 100 UNITS/ML SUB-Q ×6 (06:35→23:35)
[2020-08-19] MEDS: CISATRACURIUM BESYLATE 200 MG in DEXTROSE 5% 80 ML 10.35 ML IV CONT (06:55)
[2020-08-19] MEDS: BUDESONIDE RESPULE NEB 0.5 MG/2 ML AMP INHALATION ×2 (07:49→20:31)
--- NOTE | 2020-08-19 09:11 | P.PNNP_ITS ---
Progress Note: A&P Assessment and Plan (1) Renal failure: Qualifiers: Renal failure chronicity: unspecified chronicity Qualified Code(s): N19 - Unspecified kidney failure Code(s): N19 - Unspecified kidney failure Status: Acute Assessment and Plan: * unclear what baseline kidney function is * is insult acute or acute on chronic?? * suspect etiology multifactorial: - IV contrast exposure (on 08/13/[address] of chest) - altered hemodynamics/hypotension (he is still on pressors) - infection (pneumonia + COVD-19) - concurrent ARB use prior to admission * renal ultrasound he does have a small right kidney. * urine electrolytes show pre renal azotemia. * He has received some IV fluids but did not improve. * He has COVID so we do not want to keep giving the IV fluids, lest oxygenation worsen. * His oxygenation is borderline now at 80% FiO2 * His creatinine is a little bit better. His BUN is higher but he is on dexamethasone. * At this point will try some diuretics. * Discussed with Dr. Degroot. (2) Acute hypoxemic respiratory failure: Code(s): J96.01 - Acute respiratory failure with hypoxia Status: Acute Assessment and Plan: * due to pneumonia, COVD-19, and maybe CHF likely culminating in ARDS * Will try diuretics. (3) Shock: Code(s): R57.9 - Shock, unspecified Status: Acute Assessment and Plan: * On a small amount of pressors. * follow hemodynamics (4) COVID-19: Code(s): U07.1 - COVID-19 Status: Acute Assessment and Plan: * tested positive * on steroids * not a candidate for remdesivir (due to renal disease) * continue ventilator support (5) Pneumonia: Qualifiers: Laterality: unspecified laterality Lung location: unspecified part of lung Pneumonia type: due to unspecified organism Qualified Code(s): J18.9 - Pneumonia, unspecified organism Code(s): J18.9 - Pneumonia, unspecified organism Status: Acute Assessment and Plan: * follow cultures * on IV antibiotics for now Subjective Date/time seen: 08/19/20 09:11 Interval history: Faustino is about the same. He is on a ventilator. Sedated. He is on a small amount of pressors. Review of Systems Review of Systems: ROS unobtainable: Yes unobtainable due to medical condition Exam Narrative: Exam Narrative: General: WD/WN male intubated/sedate Heart: normal S1 and S2; no rub Lungs: coarse breath sounds bilaterally Abdomen: soft, nontender, nondistended, positive bowel sounds Extremities: no cyanosis or clubbing; 1+ edema Skin: warm and intact Objective Data Vital Signs Vital Signs: Vital Signs - 24 hr 08/18/20 10:00 08/18/20 10:15 08/18/20 10:19 Temperature Pulse Rate 84 76 80 Respiratory Rate 10 L 24 H Blood Pressure 118/63 Pulse Oximetry 97 96 08/18/20 10:32 08/18/20 10:52 08/18/20 12:00 Temperature 35.9 C L Pulse Rate 81 83 79 Respiratory Rate 24 H 24 H 26 H Blood Pressure 132/61 Pulse Oximetry 94 08/18/20 12:17 08/18/20 14:00 08/18/20 14:29 Temperature Pulse Rate 78 75 75 Respiratory Rate 26 H 26 H Blood Pressure 130/61 Pulse Oximetry 96 96
--- NOTE | 2020-08-19 09:11 | PM.PNNEP ---
Progress Note: A&P Assessment and Plan (1) Renal failure: Qualifiers: Renal failure chronicity: unspecified chronicity Qualified Code(s): N19 - Unspecified kidney failure Code(s): N19 - Unspecified kidney failure Status: Acute Assessment and Plan: unclear what baseline kidney function is is insult acute or acute on chronic?? suspect etiology multifactorial: - IV contrast exposure (on 08/13/[address] of chest) - altered hemodynamics/hypotension (he is still on pressors) - infection (pneumonia + COVD-19) - concurrent ARB use prior to admission renal ultrasound he does have a small right kidney. urine electrolytes show pre renal azotemia. He has received some IV fluids but did not improve. He has COVID so we do not want to keep giving the IV fluids, lest oxygenation worsen. His oxygenation is borderline now at 80% FiO2 His creatinine is a little bit better. His BUN is higher but he is on dexamethasone. At this point will try some diuretics. Discussed with Dr. Degroot. (2) Acute hypoxemic respiratory failure: Code(s): J96.01 - Acute respiratory failure with hypoxia Status: Acute Assessment and Plan: due to pneumonia, COVD-19, and maybe CHF likely culminating in ARDS Will try diuretics. (3) Shock: Code(s): R57.9 - Shock, unspecified Status: Acute Assessment and Plan: On a small amount of pressors. follow hemodynamics (4) COVID-19: Code(s): U07.1 - COVID-19 Status: Acute Assessment and Plan: tested positive on steroids not a candidate for remdesivir (due to renal disease) continue ventilator support (5) Pneumonia: Qualifiers: Laterality: unspecified laterality Lung location: unspecified part of lung Pneumonia type: due to unspecified organism Qualified Code(s): J18.9 - Pneumonia, unspecified organism Code(s): J18.9 - Pneumonia, unspecified organism Status: Acute Assessment and Plan: follow cultures on IV antibiotics for now Subjective Date/time seen: 08/19/20 09:11 Interval history: Fasutino is about the same. He is on a ventilator. Sedated. He is on a small amount of pressors. Review of Systems Review of Systems: ROS unobtainable: Yes unobtainable due to medical condition Exam Narrative: Exam Narrative: General: WD/WN male intubated/sedate Heart: normal S1 and S2; no rub Lungs: coarse breath sounds bilaterally Abdomen: soft, nontender, nondistended, positive bowel sounds Extremities: no cyanosis or clubbing; 1+ edema Skin: warm and intact Objective Data Vital Signs Vital Signs: Vital Signs - 24 hr 08/18/20 10:00 08/18/20 10:15 08/18/20 10:19 Temperature Pulse Rate 84 76 80 Respiratory Rate 10 L 24 H Blood Pressure 118/63 Pulse Oximetry 97 96 08/18/20 10:32 08/18/20 10:52 08/18/20 12:00 Temperature 35.9 C L Pulse Rate 81 83 79 Respiratory Rate 24 H 24 H 26 H Blood Pressure 132/61 Pulse Oximetry 94 08/18/20 12:17 08/18/20 14:00 08/18/20 14:29 Temperature Pulse Rate 78 75 75 Respiratory Rate 26 H 26 H Blood Pressure 130/61 Pulse Oximetry 96 96 08/18/20 15:06 08/18/20 15:08 08/18/20 15:13 Temperature Pulse Rate 71 72 73 Respiratory Rate 26 H 26 H Blood Pressure Pulse Oximetry 95 08/18/20 15:47 08/18/20 15:48 08/18/20 16:00 Temperature 36.0 C L Pulse Rate 85 85 82 Respiratory Rate 26 H 26 H 26 H Blood Pressure 133/63 Pulse Oximetry 94 08/18/20 16:14 08/18/20 16:20 08/18/20 16:31 Temperature Pulse Rate 81 77 Respiratory Rate Blood Pressure Pulse Oximetry 92 86 L 94 08/18/20 17:26 08/18/20 18:00 08/18/20 18:07 Temperature Pulse Rate 77 73 77 Respiratory Rate 26 H 26 H 26 H Blood Pressure 116/63 Pulse Oximetry 94 08/18/20 19:32 08/18/20 20:00 08/18/20 20:30 Temperature 36.1 C L
[2020-08-19] MEDS: INSULIN GLARGINE (*BKC) 100 UNITS/ML 40 UNITS SUB-Q (09:24)
[2020-08-19] MEDS: ENOXAPARIN 40 MG/0.4 ML SYRINGE SUB-Q ×2 (09:25→20:13)
[2020-08-19] MEDS: SODIUM BICARBONATE 8.4% 50 MEQ/50 ML SYRINGE IV PUSH (09:25)
[2020-08-19] MEDS: DEXAMETHASONE SOD PHOS INJ 4 MG/ML VIAL 6 MG IV PUSH (09:25)
[2020-08-19] MEDS: SODIUM BICARBONATE TAB 650 MG TABLET 1300 MG PO ×3 (09:26→17:33)
[2020-08-19 09:41] LABS: Glucose Point of Care 337 (65-105)
[2020-08-19] MEDS: FENTANYL 2,500MCG/NS250ML(*CRX 2,500 MCG/250 ML BAG 20 MCG IV CONT (10:42)
[2020-08-19 11:20] LABS: Hepatitis B Surface Anti Res Negative
[2020-08-19 11:23] LABS: HAV RESULT Negative (Negative); Hepatitis B Core IgM Result Negative (Negative); Hepatitis B Surface Antigen Negative (Negative)
[2020-08-19 11:24] LABS: Hepatitis C Virus Antibody Reactive (Negative)
--- NOTE | 2020-08-19 12:02 | WPDINTPN ---
Progress Note: A&P Assessment and Plan (1) Acute on chronic respiratory failure with hypoxia and hypercapnia: Code(s): J96.21 - Acute and chronic respiratory failure with hypoxia; J96.22 - Acute and chronic respiratory failure with hypercapnia Status: Acute Assessment and Plan: Secondary to COVID-19 pneumonia and possible component of congestive heart failure. Patient was given Lasix for 1st couple days with no improvement Admitted 08/13, BiPAP 08/14, intubated 08/16 Patient was ventilated in prone position overnight and changed to supine this morning Chest x-ray reviewed and ABG pending Peep set at 16, FiO2 is 80% this morning. Rate increased to 28 He has been started on neuromuscular raisa infusion Will try prone ventilation again today Continue empiric antibiotic therapy with Rocephin azithromycin. Will complete course today Bronchodilators Blood and sputum culture are negative as of now Start Lasix for diuresis (2) COVID-19: Code(s): U07.1 - COVID-19 Status: Acute Assessment and Plan: SARS-CoV-2 PCR positive 08/13 Patient is in Airborne, Droplet and Contact Isolation Continue dexamethasone Not a candidate for remdesivir due to elevated creatinine Follow inflammatory periodically (3) Pneumonia: Qualifiers: Laterality: unspecified laterality Lung location: unspecified part of lung Pneumonia type: due to unspecified organism Qualified Code(s): J18.9 - Pneumonia, unspecified organism Code(s): J18.9 - Pneumonia, unspecified organism Status: Acute Assessment and Plan: See above (4) Renal failure: Qualifiers: Renal failure chronicity: unspecified chronicity Qualified Code(s): N19 - Unspecified kidney failure Code(s): N19 - Unspecified kidney failure Status: Acute Assessment and Plan: MARCO A with baseline creatinine unknown Creatinine initially worsen but has improved since yesterday BUN is still high Patient is overall positive on volume. IV fluids were given earlier to try to reverse kidney dysfunction He is still putting out some urine Consulted nephrology discussed with Dr. Mcclendon Will start diuretics for volume Monitor renal function. Avoid nephrotoxic agents, renally dose medications. Renal ultrasound IMPRESSION:1. Mild atrophy of right kidney. No hydronephrosis. Patient may still need dialysis Monitor intake and output (5) Shock: Code(s): R57.9 - Shock, unspecified Status: Acute Assessment and Plan: Patient was hypotensive post intubation. Likely secondary to positive pressure ventilation and sedation 500 cc normal saline bolus, Levophed titration to maintain map Currently off Levophed (6) Diabetes mellitus: Qualifiers: Diabetes mellitus type: type 2 Diabetes mellitus jail insulin use: without manager intermediate use Diabetes mellitus complication status: without complication Qualified Code(s): E11.9 - Type 2 diabetes mellitus without complications Code(s): E11.9 - Type 2 diabetes mellitus without complications Status: Chronic Assessment and Plan: Accuchecks, SSI coverage Continue Lantus (7) Hyperlipidemia: Qualifiers: Hyperlipidemia type: unspecified Qualified Code(s): E78.5 - Hyperlipidemia, unspecified Code(s): E78.5 - Hyperlipidemia, unspecified Status: Chronic Assessment and Plan: Continue atorvastatin Additional Plan DVT prophylaxis -Lovenox intermediate does Stress ulcer prophylaxis -Protonix Nutrition -continue tube feed Code Status -I spoke to patient's by phone and updated her with patient's status. I told the patient is in severe respiratory failure, kidney failure and considering his age dementia and COVID-19 his chances of survival are low. I also discussed potential need for hemodialysis. She request patient to be full code and is agreeable for hemodialysis if needed. Explained pros and cons and potential risks
--- NOTE | 2020-08-19 12:15 | PM.PNPUL ---
Progress Note: A&P Assessment and Plan (1) COVID-19: Code(s): U07.1 - COVID-19 Status: Acute Assessment and Plan: on dexamethasone, too ill and too late to use remdesivir benefits from prone positioning; has some left facial swelling (2) COPD (chronic obstructive pulmonary disease): Code(s): J44.9 - Chronic obstructive pulmonary disease, unspecified Status: Acute Assessment and Plan: - continue duonebs and pulmicort as ordered (3) CHF (congestive heart failure): Code(s): I50.9 - Heart failure, unspecified Status: Acute Assessment and Plan: (4) ARDS (adult respiratory distress syndrome): Code(s): J80 - Acute respiratory distress syndrome Status: Acute Assessment and Plan: - TV now is 450 which is higher than 400 ml ( 6 ml/kg) and plateau < 30 - agree with proning however his face is really swollen, and he needs a break - attempt to keep euvolemic Subjective Date/time seen: 08/19/20 12:15 Interval history: Intubated, sedated and paralyzed Review of Systems Review of Systems: All systems reviewed & are unremarkable except as noted in HPI and below Exam Const: General: comfortable (sedated with fentanyl 125 mcg/hour and propofol 40 mcg/kg/hour), no acute distress and well developed Nutritional Appearance: obese HENMT: Head: normal to inspection, normocephalic and atraumatic Eyes: Periorbital: periorbital findings abnormal (edema) left Neck: Neck: normal visual inspection, trachea midline and supple Resp: Effort & Inspection: normal respiratory effort Auscultation: diminished lung sounds Cardio: Rate: regular rate Rhythm: regular rhythm Heart sounds: S1 normal heart sound present, S2 normal heart sound present, no gallops, no murmurs and Other heart sounds present (distant cardiac tones ) GI: Inspection: normal to inspection Auscultation: Hypoactive bowel sounds present Skin: General skin exam: normal color and no rashes or lesions noted Neuro: General: other (sedated and intubated) Extrem: General: normal to inspection and no clubbing, cyanosis or edema Psych: Mental Status: other (sedated) Objective Data Vital Signs Vital Signs: Vital Signs - 24 hr 08/18/20 12:17 08/18/20 14:00 08/18/20 14:29 Temperature Pulse Rate 78 75 75 Respiratory Rate 26 H 26 H Blood Pressure 130/61 Pulse Oximetry 96 96 08/18/20 15:06 08/18/20 15:08 08/18/20 15:13 Temperature Pulse Rate 71 72 73 Respiratory Rate 26 H 26 H Blood Pressure Pulse Oximetry 95 08/18/20 15:47 08/18/20 15:48 08/18/20 16:00 Temperature 36.0 C L Pulse Rate 85 85 82 Respiratory Rate 26 H 26 H 26 H Blood Pressure 133/63 Pulse Oximetry 94 08/18/20 16:14 08/18/20 16:20 08/18/20 16:31 Temperature Pulse Rate 81 77 Respiratory Rate Blood Pressure Pulse Oximetry 92 86 L 94 08/18/20 17:26 08/18/20 18:00 08/18/20 18:07 Temperature Pulse Rate 77 73 77 Respiratory Rate 26 H 26 H 26 H Blood Pressure 116/63 Pulse Oximetry 94 08/18/20 19:32 08/18/20 20:00 08/18/20 20:30 Temperature 36.1 C L Pulse Rate 86 80 93 Respiratory Rate 26 H 26 H Blood Pressure 128/51 L Pulse Oximetry 100 91 08/18/20 20:47 08/18/20 21:54 08/18/20 22:54 Temperature Pulse Rate 86 88 82 Respiratory Rate 26 H 29 H 25 H Blood Pressure 128/51 L 131/58 L Pulse Oximetry 90 08/18/20 22:58 08/18/20 22:59 08/18/20 23:35 Temperature Pulse Rate 82 81 82 Respiratory Rate 26 H 17 Blood Pressure Pulse Oximetry 98 08/19/20 00:00 08/19/20 01:52 08/19/20 02:00 Temperature 36.1 C L Pulse Rate 83 81 81 Respiratory Rate 26 H 26 H 26 H Blood
[2020-08-19] MEDS: FUROSEMIDE INJ 100 MG/10 ML VIAL 80 MG IV PUSH ×2 (14:46→20:10)
--- NOTE | 2020-08-19 15:34 | PM.IMPN ---
Progress Note: A&P Assessment and Plan (1) Acute on chronic respiratory failure with hypoxia and hypercapnia: Code(s): J96.21 - Acute and chronic respiratory failure with hypoxia; J96.22 - Acute and chronic respiratory failure with hypercapnia Status: Acute Assessment and Plan: The patient is clearly fluid overloaded with diffuse crackles in all lung bella and this is likely secondary to the 1 liter of LR bolus he recieved in the ER. He has been admitted to IMU and at this time he appears to be in severe acute respiratory distess and very well may need to be intubated shortly. We will initiate bipap, transfer to ICU, Administer Lasix IV now. Consider further IV lasix as needed. Check morning CXR. Check ABG now and after Bipap therapy. 08/19/20 15:34 Patient is 75-year-old male with history of chronic respiratory failure on home oxygen 3 L however patient had been desaturating on his home oxygen was increased to 4 L without much improvement, he was also having fever, some of the family member been positive for COVID-19, patient and family were concerned about it and was brought to the emergency department, patient COVID was positive on 08/13/2020 in ER he was desaturating and patient was placed on BiPAP. Today patient was on BiPAP requiring 100% oxygen and was desaturating and patient was transferred to ICU seen by high lift operator, currently patient is maintaining his oxygen and does not need to be intubated, patient is a full code, will continue will continue dexamethasone patient cannot have remdesivir as he has elevated creatine, patient was intubated on 08/16/2020, patient is placed on prone position, he is on FiO2 80%, PEEP set at 16 and inreased respirotory rate to 28, prognosis is poor, will continue present management appreciate high lift operator and senior quality assurance analyst, further recommendation to follow (2) Suspected 2019 novel coronavirus infection: Code(s): Z20.828 - Contact with and (suspected) exposure to other viral communicable diseases Status: Acute Assessment and Plan: The patient has been swabbed for COVID-19. We will initiate Dexamethasone IV daily. Continue droplet isolation and supplemental oxygen therapy. We will consider Remdesivir thearpy if the patient tests postiive for COVID-19. Lovenox. (3) Pneumonia: Qualifiers: Laterality: unspecified laterality Lung location: unspecified part of lung Pneumonia type: due to unspecified organism Qualified Code(s): J18.9 - Pneumonia, unspecified organism Code(s): J18.9 - Pneumonia, unspecified organism Status: Acute Assessment and Plan: r/o Viral vs. Bacterial pneumonia. Continue IV antibiotics for now. Bronchodilators. Steroid therapy. Blood and sputum cultures. RT assess and treat. (4) Severe sepsis: Code(s): A41.9 - Sepsis, unspecified organism; R65.20 - Severe sepsis without septic shock Status: Acute Assessment and Plan: with tachycardia and tachypnea and elevated lactic acid. Source of sepsis appears to be pulmonary but may also be urinary. continue IV antibiotics. blood/sputum/urine cultures. Check reflex lactic acid. Monitor urine output and vital signs closely. We will consider central line placement and vasopressors if necessary. (5) Renal failure: Qualifiers: Renal failure chronicity: unspecified chronicity Qualified Code(s): N19 - Unspecified kidney failure Code(s): N19 - Unspecified kidney failure Status: Acute Assessment and Plan: Acute vs. Chronic? Likely secondary to sepsis. Monitor renal function. Avoid nephrotoxic agents, renally dose medications. Consider nephrology consultation in am. (6) Abnormal urinalysis: Code(s): R82.90 - Unspecified abnormal findings in urine Status: Acute Assessment and Plan: r/o UTI. continue IV antibiotics. Urine culture is pending. (7) Normocytic anemia: Code(s): D64.9 - Anemia, unspeci
[2020-08-19] MEDS: CISATRACURIUM BESYLATE 200 MG in DEXTROSE 5% 80 ML 13.8 ML IV CONT ×2 (15:50→22:48)
[2020-08-19 16:55] LABS: Glucose Point of Care 370 (65-105)
[2020-08-19 20:26] LABS: Glucose Point of Care 349 (65-105)
[2020-08-19 21:03] LABS: Glucose Point of Care 328 (65-105)
[2020-08-19 23:55] LABS: Glucose Point of Care 305 (65-105)
[2020-08-20] VITALS (75 sets, daily range): BP systolic 70–196; BP diastolic 5–112; PULSE 48–147; RESP 14–29; TEMP 0–37.8; O2SAT 93–100
[2020-08-20] MEDS: PROPOFOL IV EMULSION 100 ML 34.5 MG IV CONT ×6 (01:47→16:03)
[2020-08-20] MEDS: FENTANYL 2,500MCG/NS250ML(*CRX 2,500 MCG/250 ML BAG 20 MCG IV CONT ×2 (01:48→14:41)
[2020-08-20] MEDS: IPRATROPIUM BR 0.02% INH SOLN 0.5 MG/2.5 ML VIAL INHALATION ×3 (02:08→21:37)
[2020-08-20] MEDS: ALBUTEROL SULFATE NEB 2.5 MG/0.5 ML INH 5 MG INHALATION ×4 (02:08→21:37)
[2020-08-20] MEDS: CENTRAL LINE FLUSH 10 ML IV PUSH ×3 (04:13→21:05)
[2020-08-20 04:24] LABS: Alveolar/Arterial O2 Gradient 495.6 mmHg; Base Excess ABG -4.7 mEq/l (+/-2.0); Carboxyhemoglobin 0.3 % THb (0-2.0); Fractional Inspired Oxygen 90 %; HCO3 ABG 22.5 mEq/l (22.0-26.0); Methemoglobin ABG 0.3 %THb (0-1.5); Oxygen Content ABG 13.8 %vol (16.0-22.0); Oxygen Saturation ABG 95.9 % (95.0-100.0); PCO2 ABG 51.8 mmHg (35.0-45.0); PO2 FiO2 Ratio Arterial Blood 1.03 %; Reduced Hemoglobin 4.4 %THb (0-5.0); Total Hemoglobin 10.2 g/dL (12.0-18.0)
[2020-08-20 04:25] LABS: Device VENTILATOR; Modified Allen's Test Pass; Site Drawn RIGHT RADIAL
[2020-08-20 04:27] LABS: Arterial Blood Gas PEEP 16 cmH2O; Arterial Blood Gas Tidal Volume 400 ml; Arterial Blood Gas Vent Mode CMV; Arterial Blood Gas Ventilator rate 28 /MIN; pH ABG 7.256 (7.350-7.450)
[2020-08-20] MEDS: CISATRACURIUM BESYLATE 200 MG in DEXTROSE 5% 80 ML 13.8 ML IV CONT ×3 (04:31→18:50)
[2020-08-20 05:00] LABS: Basophils Absolute Auto 0.1 K/mm3 (0.0-0.1); Basophils Percent Auto 0.3 % (0.2-1.2); Eosinophils Absolute Auto 0.1 K/mm3 (0-0.3); Eosinophils Percent Auto 0.8 % (0-4.4); Hematocrit 28.6 % (42.0-52.0); Hemoglobin 8.8 g/dL (14.0-18.0); Immature Granulocyte Absolute 1.24 K/mm3 (0.00-0.031); Immature Granulocyte Percent A 7.6 % (0-0.5); Lymphocytes Percent Auto 6.2 % (18.3-44.2); Mean Corpuscular HGB Conc 30.8 g/dl (32-36); Mean Corpuscular Hemoglobin 25.7 pg (26-34); Mean Corpuscular Volume 83.6 fl (80-100); Mean Platelet Volume 12.8 fl (7.4-10.4); Monocytes Absolute Auto 0.8 K/mm3 (0.1-0.6); Monocytes Percent Auto 4.9 % (2.6-8.5); Neutrophils Percent Auto 80.2 % (45.5-73.1); Nucleated Red Blood Cells Perc 0.1 % (0.0-0.2); Platelet Count Result 213 k/mm3 (150-375); Red Blood Count 3.42 M/mm3 (4.6-6.20); Red Cell Distribution Width 15.7 % (11.5-14.5); White Blood Count 16.3 K/mm3 (4.5-10.0)
[2020-08-20 05:24] LABS: Alanine Aminotransferase 16 U/L (4-50); Albumin Level 2.7 g/dL (3.5-5.1); Alkaline Phosphatase 103 U/L (38-126); Anion Gap 7 mmol/L (8-16); Aspartate Amino Transferase 25 U/L (17-59); Bilirubin,Total 0.4 mg/dL (0.2-1.3); Blood Urea Nitrogen 110 mg/dL (9-20); Calcium 7.5 mg/dL (8.4-10.2); Carbon Dioxide 24 mmol/L (22-30); Chloride 107 mmol/L (98-107); Estimated CRCL calculation 21 ml/min; Estimated Glomerular Filt Rate 22; Glucose 313 mg/dL (75-110); Lactate Dehydrogenase 1221 U/L (313-618); Potassium 5.1 mmol/L (3.4-5.0); Sodium 138 mmol/L (137-145)
[2020-08-20] MEDS: INSULIN ASPART (*BKC) 100 UNITS/ML SUB-Q ×3 (05:50→17:40)
[2020-08-20 06:08] LABS: CRP 25.5 mg/dL (<1.0)
[2020-08-20] MEDS: ENOXAPARIN 40 MG/0.4 ML SYRINGE SUB-Q ×2 (08:03→21:04)
[2020-08-20] MEDS: DEXAMETHASONE SOD PHOS INJ 4 MG/ML VIAL 6 MG IV PUSH (08:03)
[2020-08-20] MEDS: BUDESONIDE RESPULE NEB 0.5 MG/2 ML AMP INHALATION (08:11)
--- NOTE | 2020-08-20 08:19 | PM.PNNEP ---
Progress Note: A&P Assessment and Plan (1) Renal failure: Qualifiers: Renal failure chronicity: unspecified chronicity Qualified Code(s): N19 - Unspecified kidney failure Code(s): N19 - Unspecified kidney failure Status: Acute Assessment and Plan: unclear what baseline kidney function is is insult acute or acute on chronic?? suspect etiology multifactorial: - IV contrast exposure (on 08/13/[address] of chest) - altered hemodynamics/hypotension (he is still on pressors) - infection (pneumonia + COVD-19) - concurrent ARB use prior to admission renal ultrasound he does have a small right kidney. urine electrolytes show pre renal azotemia. He has COVID so we do not want to keep giving the IV fluids, lest oxygenation worsen. His oxygenation is borderline now at 80% FiO2 His creatinine improved from 3.9-2.9 and then this morning is up to 3.3. He did not make sure much urine in response to the diuretics. His FiO2 increased from 80% to 90%. I think it is most likely inevitable that he is going to need dialysis. Discussed with Dr. Degroot. He will be seeing the patient later this morning. I have no objection to hemodialysis. (2) Acute hypoxemic respiratory failure: Code(s): J96.01 - Acute respiratory failure with hypoxia Status: Acute Assessment and Plan: due to pneumonia, COVD-19, and maybe CHF likely culminating in ARDS On Dexamethasone and supportive care including pulmonary toilet, ventilator, and prone position. (3) Shock: Code(s): R57.9 - Shock, unspecified Status: Acute Assessment and Plan: Blood pressure seems a little bit better follow hemodynamics (4) COVID-19: Code(s): U07.1 - COVID-19 Status: Acute Assessment and Plan: tested positive on steroids not a candidate for remdesivir (due to renal disease) continue ventilator support Prone position (5) Pneumonia: Qualifiers: Laterality: unspecified laterality Lung location: unspecified part of lung Pneumonia type: due to unspecified organism Qualified Code(s): J18.9 - Pneumonia, unspecified organism Code(s): J18.9 - Pneumonia, unspecified organism Status: Acute Assessment and Plan: follow cultures on IV antibiotics for now Subjective Date/time seen: 08/20/20 08:19 Interval history: Faustino is about the same. He was prone overnight and is about to be repositioned to supine. He is on a ventilator. Sedated. Unable to give a history Review of Systems Review of Systems: ROS unobtainable: Yes unobtainable due to medical condition Exam Narrative: Exam Narrative: General: WD/WN male intubated/sedate Heart: normal S1 and S2; no rub Lungs: coarse breath sounds bilaterally Abdomen: soft, nontender, nondistended, positive bowel sounds Extremities: no cyanosis or clubbing; 1+ edema Skin: No rash Objective Data Vital Signs Vital Signs: Vital Signs - 24 hr 08/19/20 10:00 08/19/20 10:42 08/19/20 11:25 Temperature Pulse Rate 77 77 75 Respiratory Rate 26 H 26 H Blood Pressure 144/55 H Pulse Oximetry 98 98 08/19/20 12:00 08/19/20 14:00 08/19/20 14:15 Temperature 35.7 C L Pulse Rate 74 83 87 Respiratory Rate 26 H 28 H 28 H Blood Pressure 135/55 L 127/60 Pulse Oximetry 99 97 97 08/19/20 16:00 08/19/20 17:20 08/19/20 18:00 Temperature 34.6 C L Pulse Rate 85 84 85 Respiratory Rate 28 H 28 H Blood Pressure 121/54 L 122/54 L Pulse Oximetry 94 95 94 08/19/20 20:00 08/19/20 20:11 08/19/20 20:16 Temperature 35.9 C L Pulse Rate 88 89 88 Respiratory Rate 28 H 28 H 28 H Blood Pressure 113/51 L Pulse Oximetry 93 08/19/20 20:17 08/19/20 20:32 08/19/20 20:34 Temperature Pulse Rate 89 91 90 Respiratory Rate 28 H 28 H Blood Pressure 116/49 L Pulse Oximetry 94 08/19/20 20:45 08/19/20 22:00
[2020-08-20] MEDS: INSULIN GLARGINE (*BKC) 100 UNITS/ML 70 UNITS SUB-Q (09:25)
--- NOTE | 2020-08-20 12:47 | WPDPROCEDUR ---
Procedures Central Line Placement Right Femoral: Central Line Date: 08/20/20 Central Line Time: 10:30 Discussed w/ the patient/family/POA,the placement of a central venous catheter, including its clinical necessity/indication & associated potential risks, benifits and alternatives.: Yes The patient/family/POA understand(s) and acknowledge(s) the need to proceed with central venous catheter insertion as an important element of the patient's clinical management.: Yes Consent: Consent was obtained from patient's yesterday by phone by me for temporary dialysis catheter after explanation of risks and benefits Time Out Performed: Yes Patient Position: supine Patient placed on monitor/pulse ox: Yes Provider Prep: mask, sterile gown, sterile gloves, Max. sterile barrier precautions, cap and hand hygiene with conventional soap/water or alcohol based hand rub Central line prep: 2% Chlorhexidine scrub and sterile full body sheet applied Sterile US Technique with sterile gel/sterile probe covers: Yes Central line lumen inserted: triple Length (cm): 20 Depth of Insertion (cm): 20 Post Procedure: sutured in place, good blood return, all ports aspirated, flushed, capped, transparent dressing and hemostatic product Patient tolerated procedure: well Complications: none Additional comments: Right femoral temporary hemodialysis catheter with a accessory port. 20 cm length
--- NOTE | 2020-08-20 12:49 | WPDINTPN ---
Progress Note: A&P Assessment and Plan (1) Acute on chronic respiratory failure with hypoxia and hypercapnia: Code(s): J96.21 - Acute and chronic respiratory failure with hypoxia; J96.22 - Acute and chronic respiratory failure with hypercapnia Status: Acute Assessment and Plan: Secondary to COVID-19 pneumonia and possible component of congestive heart failure. Patient was given Lasix for 1st couple days with no improvement Admitted 08/13, BiPAP 08/14, intubated 08/16 Patient was ventilated in prone position overnight and changed to supine this morning Chest x-ray ABG review Mixed acidosis. Will treat the metabolic with dialysis and respiratory will permissive hypercapnia. Patient on 6 mL/kg tidal volume. Will increase the rate 30 Peep set at 16, FiO2 is 80% this morning. Continue neuromuscular raisa infusion Will try prone ventilation again today Completed course of empiric antibiotic therapy with Rocephin azithromycin. Bronchodilators Blood and sputum culture are negative as of now Start hemodialysis for fluid removal (2) COVID-19: Code(s): U07.1 - COVID-19 Status: Acute Assessment and Plan: SARS-CoV-2 PCR positive 08/13 Patient is in Airborne, Droplet and Contact Isolation Continue dexamethasone Not a candidate for remdesivir due to elevated creatinine Follow inflammatory periodically (3) Pneumonia: Qualifiers: Laterality: unspecified laterality Lung location: unspecified part of lung Pneumonia type: due to unspecified organism Qualified Code(s): J18.9 - Pneumonia, unspecified organism Code(s): J18.9 - Pneumonia, unspecified organism Status: Acute Assessment and Plan: See above (4) Renal failure: Qualifiers: Renal failure chronicity: unspecified chronicity Qualified Code(s): N19 - Unspecified kidney failure Code(s): N19 - Unspecified kidney failure Status: Acute Assessment and Plan: MARCO A with baseline creatinine unknown Creatinine initially worsen but has improved since yesterday BUN is still high Patient is overall positive on volume. IV fluids were given earlier in the hospital course to try to reverse kidney dysfunction Consulted nephrology discussed with Dr. Mcclendon We tented diuretics yesterday but no significant improvement in urine output With worsening potassium and uremia we decided to start patient on hemodialysis. Right femoral temporary dialysis catheter placed Dr. Mcclendon to arrange hemodialysis Monitor renal function. Avoid nephrotoxic agents, renally dose medications. Renal ultrasound IMPRESSION:1. Mild atrophy of right kidney. No hydronephrosis. Monitor intake and output (5) Shock: Code(s): R57.9 - Shock, unspecified Status: Acute Assessment and Plan: Patient was hypotensive post intubation. Likely secondary to positive pressure ventilation and sedation 500 cc normal saline bolus, Levophed titration to maintain map Currently off Levophed (6) Diabetes mellitus: Qualifiers: Diabetes mellitus type: type 2 Diabetes mellitus long term care phlebotomist insulin use: without long term care phlebotomist use Diabetes mellitus complication status: without complication Qualified Code(s): E11.9 - Type 2 diabetes mellitus without complications Code(s): E11.9 - Type 2 diabetes mellitus without complications Status: Chronic Assessment and Plan: Accuchecks, SSI coverage Increase Lantus He was earlier on insulin infusion and may need to go back (7) Hyperlipidemia: Qualifiers: Hyperlipidemia type: unspecified Qualified Code(s): E78.5 - Hyperlipidemia, unspecified Code(s): E78.5 - Hyperlipidemia, unspecified Status: Chronic Assessment and Plan: Continue atorvastatin Additional Plan DVT prophylaxis -Lovenox intermediate does Stress ulcer prophylaxis -Protonix Nutrition -continue tube feed Code Status -I spoke to patient's by phone yesterday and updated her wit
[2020-08-20 13:05] LABS: Glucose Point of Care 335 (65-105)
[2020-08-20 14:13] LABS: Glucose Point of Care 372 (65-105)
[2020-08-20] MEDS: NOREPINEPHRINE 8 MG/D5W 250 ML 8 MG/250 ML BAG 56.25 MG IV CONT (16:04)
--- NOTE | 2020-08-20 16:28 | PM.IMPN ---
Progress Note: A&P Assessment and Plan (1) Acute on chronic respiratory failure with hypoxia and hypercapnia: Code(s): J96.21 - Acute and chronic respiratory failure with hypoxia; J96.22 - Acute and chronic respiratory failure with hypercapnia Status: Acute Assessment and Plan: The patient is clearly fluid overloaded with diffuse crackles in all lung bella and this is likely secondary to the 1 liter of LR bolus he recieved in the ER. He has been admitted to IMU and at this time he appears to be in severe acute respiratory distess and very well may need to be intubated shortly. We will initiate bipap, transfer to ICU, Administer Lasix IV now. Consider further IV lasix as needed. Check morning CXR. Check ABG now and after Bipap therapy. 08/20/20 16:28 Patient is 75-year-old male with history of chronic respiratory failure on home oxygen 3 L however patient had been desaturating on his home oxygen was increased to 4 L without much improvement, he was also having fever, some of the family member been positive for COVID-19, patient and family were concerned about it and was brought to the emergency department, patient COVID was positive on 08/13/2020 in ER he was desaturating and patient was placed on BiPAP. Today patient was on BiPAP requiring 100% oxygen and was desaturating and patient was transferred to ICU seen by estate and trust tax principal, currently patient is maintaining his oxygen and does not need to be intubated, patient is a full code, will continue will continue dexamethasone patient cannot have remdesivir as he has elevated creatine, patient was intubated on 08/16/2020, patient is placed on prone position, he is on FiO2 80%, PEEP set at 16 and inreased respirotory rate to 28, prognosis is poor, today patient is seen Dr. Mcclendon patient creatinine is rising patient oxygen requirement is rising from FiO2 80-90%, the hat body sorter recommended patient will benefit from hemodialysis in this will increase oxygenation and will help the extubate the patient, will discuss with the estate and trust tax principal and further recommendation to follow (2) Suspected 2019 novel coronavirus infection: Code(s): Z20.828 - Contact with and (suspected) exposure to other viral communicable diseases Status: Acute Assessment and Plan: The patient has been swabbed for COVID-19. We will initiate Dexamethasone IV daily. Continue droplet isolation and supplemental oxygen therapy. We will consider Remdesivir thearpy if the patient tests postiive for COVID-19. Lovenox. (3) Pneumonia: Qualifiers: Laterality: unspecified laterality Lung location: unspecified part of lung Pneumonia type: due to unspecified organism Qualified Code(s): J18.9 - Pneumonia, unspecified organism Code(s): J18.9 - Pneumonia, unspecified organism Status: Acute Assessment and Plan: r/o Viral vs. Bacterial pneumonia. Continue IV antibiotics for now. Bronchodilators. Steroid therapy. Blood and sputum cultures. RT assess and treat. (4) Severe sepsis: Code(s): A41.9 - Sepsis, unspecified organism; R65.20 - Severe sepsis without septic shock Status: Acute Assessment and Plan: with tachycardia and tachypnea and elevated lactic acid. Source of sepsis appears to be pulmonary but may also be urinary. continue IV antibiotics. blood/sputum/urine cultures. Check reflex lactic acid. Monitor urine output and vital signs closely. We will consider central line placement and vasopressors if necessary. (5) Renal failure: Qualifiers: Renal failure chronicity: unspecified chronicity Qualified Code(s): N19 - Unspecified kidney failure Code(s): N19 - Unspecified kidney failure Status: Acute Assessment and Plan: Acute vs. Chronic? Likely secondary to sepsis. Monitor renal function. Avoid nephrotoxic agents, renally dose medications. Consider nephrology consultation in am. (6) Abnormal urinalysis: Code(s): R
[2020-08-20] MEDS: NOREPINEPHRINE 8 MG/D5W 250 ML 8 MG/250 ML BAG 37.5 MG IV CONT (16:35)
--- NOTE | 2020-08-20 16:35 | P.CODEBLUE_ITS ---
Code Blue Note Code Blue Note Time Arrived at Code Blue: 1632 <Herlinda Taveras PA-C - Last Filed: 08/20/20 18:33> Initial Rhythm on Arrival: PEA <Herlinda Taveras PA-C - Last Filed: 08/20/20 18:33> Airway Management: Pt being bagged on arrival (Patient had already been on mechanical ventilation.) <Herlinda Taveras PA-C - Last Filed: 08/20/20 18:33> Chest Compressions: In process on arrival to bedside <Herlinda Taveras PA-C - Last Filed: 08/20/20 18:33> Result of Code Blue: Pt transferred to ICU (Patient remained in ICU bed 12.) <Herlinda Taveras PA-C - Last Filed: 08/20/20 18:33> Cardiac Rhythm Post Code: Ventricular tachycardia, converted to sinus tachycardia with amiodarone bolus. <Herlinda Taveras PA-C - Last Filed: 08/20/20 18:33> Code Blue Summary: Patient became hypotensive and bradycardic with loss of pulse well into his 1st dialysis treatment. CPR initiated by dialysis nurse, and after several rounds of CPR and epinephrine the patient had return of spontaneous circulation. Telemetry initially showed ventricular tachycardia with palpable pulse and amiodarone bolus was ordered. For a brief time prior to giving the amiodarone it did appear that he was in a sinus tachycardia with a rate of about 117 however it then became clear that he was in ventricular tachycardia and the bolus was hung, with spiritism of sinus tachycardia within minutes. Stat labs were obtained but did not demonstrate any severe electrolyte abnormalities to suggest etiology of his arrest. Instead he may very well have become intravascularly depleted from dialysis, and 50 g albumin was ordered and hung. Since that time He has had increasing pressor requirements, nearing max doses of norepinephrine. Just as we were about to start vasopressin, he once again lost a pulse after the nurse noticed his QRS complex widening. ROSC was achieved quickly with a round of CPR and epinephrine; calcium chloride was also given x1. He is now being started on epinephrine drip. Order was given for saline bolus given concerns for intravascular depletion. He remains sedated and paralyzed, with good oxygen saturations. Dr. Quesada (attending hospitalist) and Dr. Degroot (critical care) were updated by myself and the patient's nurse, respectively. Nursing supervisor pile driving is currently speaking with the patient's , who is in the emergency department with COVID symptoms. At this time she wishes to continue aggressive treatment, reiterating his full code status. <Herlinda Taveras PA-C - Last Filed: 08/20/20 18:33> Critical Care Time Critical Care Time: Yes <Herlinda Taveras PA-C - Last Filed: 08/20/20 18:33> Total Critical Care Time: 40 <Herlinda Taveras PA-C - Last Filed: 08/20/20 18:33> Attestation: A total of 40 minutes critical care time was spent in attention of this patient during two code blue events. <Herlinda Taveras PA-C - Last Filed: 08/20/20 18:33>
[2020-08-20 16:58] LABS: Hematocrit 35.7 % (42.0-52.0); Hemoglobin 10.7 g/dL (14.0-18.0); Mean Corpuscular Volume 86.9 fl (80-100); Mean Platelet Volume 12.4 fl (7.4-10.4); Platelet Count Result 326 k/mm3 (150-375); Red Blood Count 4.11 M/mm3 (4.6-6.20); Red Cell Distribution Width 16.1 % (11.5-14.5); White Blood Count 39.9 K/mm3 (4.5-10.0)
--- NOTE | 2020-08-20 17:03 | ECG_ITS ---
Measurements Intervals [place] Rate: 130 P: [place]: 0 QRS: 33 QRSD: 130 T: 45 QT: 313 QTc: 461 Interpretive Statements ATRIAL FLUTTER/TACHYCARDIA WITH RAPID VENTRICULAR RESPONSE INTRAVENTRICULAR CONDUCTION DELAY DELAYED PRECORDIAL R/S TRANSITION BORDERLINE ST-T WAVE ABNORMALITY- INF/HIGH LAT LEADS ABNORMAL ECG Electronically Signed On 08-21-2020 11:58:00 TRIAL [place] by Neal Rodriguez D.O.
[2020-08-20 17:09] LABS: Alanine Aminotransferase 26 U/L (4-50); Albumin Level 3.4 g/dL (3.5-5.1); Alkaline Phosphatase 163 U/L (38-126); Anion Gap 15 mmol/L (8-16); Aspartate Amino Transferase 43 U/L (17-59); Bilirubin,Total 0.5 mg/dL (0.2-1.3); Blood Urea Nitrogen 108 mg/dL (9-20); Calcium 8.1 mg/dL (8.4-10.2); Carbon Dioxide 20 mmol/L (22-30); Chloride 103 mmol/L (98-107); Estimated CRCL calculation 20 ml/min; Estimated Glomerular Filt Rate 20; Glucose 458 mg/dL (75-110); INR 1.1; Magnesium 3.4 mg/dL (1.6-2.3); Potassium 5.4 mmol/L (3.4-5.0); Prothrombin Time 15.1 Seconds (11.1-14.7); Sodium 138 mmol/L (137-145)
[2020-08-20 17:10] LABS: Lactic Acid Reflex 5.9 mmol/L (0.7-2.1); Partial Thromboplastin Time 31.5 SECONDS (22.3-36.8)
[2020-08-20 17:24] LABS: Band Neutrophils Percent 4 % (0-6); Lymphocytes Absolute Manual 11.57 K/mm3 (1.1-4.5); Monocytes Absolute Manual 3.99 K/mm3 (0.1-0.90); Monocytes Percent Manual 10 % (3-9); Neutrophils Absolute Manual 24.33 K/mm3 (1.3-6.7); Neutrophils Percent Manual 57 % (46-73); Total Cells Counted 100
[2020-08-20 17:25] LABS: Anisocytosis 2+ (NORMAL); Platelet Estimate Adequate (Adequate)
[2020-08-20 17:37] LABS: Phosphorus 11.8 mg/dL (2.5-4.5)
[2020-08-20] MEDS: SODIUM CHLORIDE 0.9% IV 500 ML IV CONT ×2 (17:38→17:55)
[2020-08-20] MEDS: ALBUMIN HUMAN 25% 25 GM/100 ML 200 ML IVPB (17:38)
[2020-08-20] MEDS: VASOPRESSIN INJ 100 UNITS in DEXTROSE 5% 95 ML IV CONT (17:38)
[2020-08-20] MEDS: SODIUM BICARBONATE TAB 650 MG TABLET 1300 MG PO ×2 (17:51→17:52)
[2020-08-20] MEDS: EPINEPHrine INJ 1 MG in DEXTROSE 5% IN WATER 250 ML 150.6 MG IV CONT (17:51)
[2020-08-20] MEDS: SODIUM BICARBONATE 8.4% 50 MEQ/50 ML SYRINGE 100 MEQ IV PUSH ×4 (18:25→23:37)
[2020-08-20 18:29] LABS: Alveolar/Arterial O2 Gradient 553.2 mmHg; Base Excess ABG -18.1 mEq/l (+/-2.0); Fractional Inspired Oxygen 100 %; HCO3 ABG 12.3 mEq/l (22.0-26.0); Modified Allen's Test Pass; Oxygen Content ABG 12.1 %vol (16.0-22.0); Oxygen Saturation ABG 94.9 % (95.0-100.0); Oxyhemoglobin 94.2 % THb (90.0-100.0); PCO2 ABG 51.1 mmHg (35.0-45.0); PO2 ABG 108.7 mmHg (80.0-100.0); PO2 FiO2 Ratio Arterial Blood 1.09 %; Site Drawn RIGHT RADIAL
[2020-08-20 18:30] LABS: Device VENTILATOR
[2020-08-20 18:31] LABS: Arterial Blood Gas PEEP 16 cmH2O; Arterial Blood Gas Tidal Volume 400 ml; Arterial Blood Gas Vent Mode ASSIST CONTROL; Arterial Blood Gas Ventilator rate 28 /MIN
[2020-08-20] MEDS: AMIODARONE 150 MG/D5W 100 ML 150 MG/100 ML BAG 600 MG (18:47)
[2020-08-20] MEDS: PROPOFOL IV EMULSION 100 ML 20.8 MG IV CONT ×2 (19:49→23:37)
[2020-08-20 19:59] LABS: Reflex Lactic Acid Yes or No Add Lactic
--- NOTE | 2020-08-20 20:12 | PC.NURSE ---
Late entry due to patient condition: Pt was receiving HD at bedside and became progressively hypotensive throughout fluid removal. Levophed requirements from 5mcg/min to 40mcg/min. Per dialysis chief equipment technician pt had 2600cc removed. At end of HD treatment during blood return pt with widening QRS, mary lou down to 40s and PEA arrested. CPR initiated immediately and ACLS protocol followed. See code flowsheet for details on meds and ROSC.
[2020-08-20 21:28] LABS: Glucose Point of Care 434 (65-105)
[2020-08-20 21:31] LABS: Alveolar/Arterial O2 Gradient 552.8 mmHg; Base Excess ABG -0.3 mEq/l (+/-2.0); Fractional Inspired Oxygen 100 %; HCO3 ABG 27.6 mEq/l (22.0-26.0); Oxygen Content ABG 11.5 %vol (16.0-22.0); Oxygen Saturation ABG 95.8 % (95.0-100.0); Oxyhemoglobin 94.7 % THb (90.0-100.0); PCO2 ABG 65.5 mmHg (35.0-45.0); PO2 ABG 94.7 mmHg (80.0-100.0); PO2 FiO2 Ratio Arterial Blood 0.95 %; Total Hemoglobin 8.5 g/dL (12.0-18.0); pH ABG 7.242 (7.350-7.450)
[2020-08-20 21:32] LABS: Device VENTILATOR; Modified Allen's Test Pass; Site Drawn RIGHT RADIAL
[2020-08-20 21:34] LABS: Arterial Blood Gas PEEP 16 cmH2O; Arterial Blood Gas Tidal Volume 400 ml; Arterial Blood Gas Vent Mode CMV; Arterial Blood Gas Ventilator rate 28 /MIN
[2020-08-20 21:40] LABS: Lactic Acid 4.2 mmol/L (0.7-2.1)
[2020-08-20] MEDS: INSULIN HUMAN REGULAR (*BKC) 100 UNITS in SODIUM CHLORIDE 0.9% IV 99 ML 7.48 UNITS IV CONT (23:39)
[2020-08-20] MEDS: NOREPINEPHRINE 8 MG/D5W 250 ML 8 MG/250 ML BAG 18.75 MG IV CONT (23:40)
[2020-08-21] VITALS (51 sets, daily range): BP systolic 105–196; BP diastolic 47–82; PULSE 82–127; RESP 28; TEMP 36.3–37; O2SAT 91–100
[2020-08-21] MEDS: CISATRACURIUM BESYLATE 200 MG in DEXTROSE 5% 80 ML 13.8 ML IV CONT ×4 (01:28→22:06)
[2020-08-21] MEDS: PROPOFOL IV EMULSION 100 ML 20.8 MG IV CONT ×5 (02:08→22:07)
[2020-08-21] MEDS: ALBUTEROL SULFATE NEB 2.5 MG/0.5 ML INH 5 MG INHALATION ×4 (03:05→19:30)
[2020-08-21] MEDS: IPRATROPIUM BR 0.02% INH SOLN 0.5 MG/2.5 ML VIAL INHALATION ×4 (03:06→19:30)
[2020-08-21] MEDS: FENTANYL 2,500MCG/NS250ML(*CRX 2,500 MCG/250 ML BAG 12.5 MCG IV CONT (04:19)
[2020-08-21] MEDS: EPINEPHrine INJ 1 MG in DEXTROSE 5% IN WATER 250 ML 30.12 MG IV CONT (04:21)
[2020-08-21 04:29] LABS: Glucose Point of Care 266 (65-105)
[2020-08-21 04:29] LABS: Glucose Point of Care 324 (65-105)
[2020-08-21 04:29] LABS: Glucose Point of Care 250 (65-105)
[2020-08-21 04:29] LABS: Glucose Point of Care 227 (65-105)
[2020-08-21 04:29] LABS: Glucose Point of Care 324 (65-105)
[2020-08-21 04:50] LABS: Basophils Absolute Auto 0.1 K/mm3 (0.0-0.1); Basophils Percent Auto 0.6 % (0.2-1.2); Eosinophils Absolute Auto 0.1 K/mm3 (0-0.3); Eosinophils Percent Auto 0.6 % (0-4.4); Hematocrit 24.4 % (42.0-52.0); Hemoglobin 7.7 g/dL (14.0-18.0); Immature Granulocyte Absolute 2.79 K/mm3 (0.00-0.031); Lymphocytes Absolute Auto 1.26 K/mm3 (0.9-3.2); Lymphocytes Percent Auto 5.8 % (18.3-44.2); Mean Corpuscular HGB Conc 31.6 g/dl (32-36); Mean Corpuscular Hemoglobin 25.5 pg (26-34); Mean Corpuscular Volume 80.8 fl (80-100); Mean Platelet Volume 12.5 fl (7.4-10.4); Monocytes Absolute Auto 1.3 K/mm3 (0.1-0.6); Monocytes Percent Auto 6.2 % (2.6-8.5); Neutrophils Absolute Auto 15.9 K/mm3 (1.3-6.7); Neutrophils Percent Auto 73.8 % (45.5-73.1); Nucleated Red Blood Cells Absolute Auto 0.1 K/mm3 (0.0-0.012); Nucleated Red Blood Cells Perc 0.6 % (0.0-0.2); Platelet Count Result 222 k/mm3 (150-375); Red Blood Count 3.02 M/mm3 (4.6-6.20); Red Cell Distribution Width 15.7 % (11.5-14.5); White Blood Count 21.5 K/mm3 (4.5-10.0)
[2020-08-21 05:19] LABS: Alanine Aminotransferase 31 U/L (4-50); Albumin Level 2.9 g/dL (3.5-5.1); Alkaline Phosphatase 85 U/L (38-126); Anion Gap 7 mmol/L (8-16); Aspartate Amino Transferase 58 U/L (17-59); Bilirubin,Total 0.5 mg/dL (0.2-1.3); Blood Urea Nitrogen 117 mg/dL (9-20); CRP 22.9 mg/dL (<1.0); Calcium 7.1 mg/dL (8.4-10.2); Carbon Dioxide 34 mmol/L (22-30); Chloride 100 mmol/L (98-107); Estimated CRCL calculation 19 ml/min; Estimated Glomerular Filt Rate 19; Glucose 223 mg/dL (75-110); Potassium 4.6 mmol/L (3.4-5.0); Sodium 141 mmol/L (137-145)
[2020-08-21 06:01] LABS: Alveolar/Arterial O2 Gradient 570.2 mmHg; Base Excess ABG 1.6 mEq/l (+/-2.0); Carboxyhemoglobin 0.3 % THb (0-2.0); Fractional Inspired Oxygen 100 %; HCO3 ABG 28.3 mEq/l (22.0-26.0); Methemoglobin ABG 0.4 %THb (0-1.5); Oxygen Content ABG 11.8 %vol (16.0-22.0); Oxygen Saturation ABG 95.6 % (95.0-100.0); PCO2 ABG 56.6 mmHg (35.0-45.0); PO2 ABG 86.2 mmHg (80.0-100.0); PO2 FiO2 Ratio Arterial Blood 0.86 %; Reduced Hemoglobin 5.3 %THb (0-5.0); Total Hemoglobin 8.8 g/dL (12.0-18.0); pH ABG 7.317 (7.350-7.450)
[2020-08-21 06:02] LABS: Device VENTILATOR; Modified Allen's Test Pass; Site Drawn RIGHT RADIAL
[2020-08-21 06:03] LABS: Arterial Blood Gas PEEP 16 cmH2O; Arterial Blood Gas Tidal Volume 400 ml; Arterial Blood Gas Vent Mode CMV; Arterial Blood Gas Ventilator rate 28 /MIN
[2020-08-21] MEDS: CENTRAL LINE FLUSH 10 ML IV PUSH ×4 (06:15→20:14)
[2020-08-21] MEDS: DEXAMETHASONE SOD PHOS INJ 4 MG/ML VIAL 6 MG IV PUSH (07:59)
[2020-08-21] MEDS: ENOXAPARIN 40 MG/0.4 ML SYRINGE SUB-Q ×2 (08:00→20:13)
[2020-08-21] MEDS: INSULIN GLARGINE (*BKC) 100 UNITS/ML 70 UNITS SUB-Q (08:01)
[2020-08-21] MEDS: SODIUM BICARBONATE TAB 650 MG TABLET 1300 MG PO (08:02)
--- NOTE | 2020-08-21 08:09 | P.PNNP_ITS ---
Progress Note: A&P Assessment and Plan (1) Renal failure: Qualifiers: Renal failure chronicity: unspecified chronicity Qualified Code(s): N19 - Unspecified kidney failure Code(s): N19 - Unspecified kidney failure Status: Acute Assessment and Plan: * unclear what baseline kidney function is * is insult acute or acute on chronic?? * suspect etiology multifactorial: - IV contrast exposure (on 08/13/[address] of chest) - altered hemodynamics/hypotension (he is still on pressors) - infection (pneumonia + COVD-19) - concurrent ARB use prior to admission * renal ultrasound he does have a small right kidney. * urine electrolytes show pre renal azotemia. * He has COVID so we do not want to keep giving the IV fluids, lest oxygenation worsen. * His unstable now and so will not do dialysis today. * Discussed with Dr. Escobar (2) Acute hypoxemic respiratory failure: Code(s): J96.01 - Acute respiratory failure with hypoxia Status: Acute Assessment and Plan: * due to pneumonia, COVD-19, and maybe CHF likely culminating in ARDS * On Dexamethasone and supportive care including pulmonary toilet, ventilator, and prone position. (3) Shock: Code(s): R57.9 - Shock, unspecified Status: Acute Assessment and Plan: * Blood pressure is worse and requiring more pressors. * (4) COVID-19: Code(s): U07.1 - COVID-19 Status: Acute Assessment and Plan: * tested positive * on steroids * not a candidate for remdesivir (due to renal disease) * continue ventilator support * Prone position (5) Pneumonia: Qualifiers: Laterality: unspecified laterality Lung location: unspecified part of lung Pneumonia type: due to unspecified organism Qualified Code(s): J18.9 - Pneumonia, unspecified organism Code(s): J18.9 - Pneumonia, unspecified organism Status: Acute Assessment and Plan: * follow cultures * on IV antibiotics for now Subjective Date/time seen: 08/21/20 08:09 Interval history: Patient received dry ultrafiltration yesterday afternoon. He developed V-tach during the treatment and had to be coded. His rhythm came back but has required pressors overnight. Discussed with Dr. Escobar Review of Systems Review of Systems: ROS unobtainable: Yes unobtainable due to medical condition Exam Narrative: Exam Narrative: General: WD/WN male intubated/sedate Heart: normal S1 and S2; no rub Lungs: coarse breath sounds bilaterally Abdomen: soft, nontender, nondistended, positive bowel sounds Extremities: no cyanosis or clubbing; 1+ edema Skin: No rash Objective Data Vital Signs Vital Signs: Vital Signs - 24 hr 08/20/20 10:00 08/20/20 11:41 08/20/20 11:55 Temperature Pulse Rate 78 76 76 Respiratory Rate 29 H 28 H Blood Pressure 130/60 Pulse Oximetry 99 97 97 08/20/20 12:00 08/20/20 13:30 08/20/20 13:38 Temperature 33.8 C L 34.8 C L Pulse Rate 86 84 82 Respiratory Rate 28 H 28 H Blood Pressure 132/56 L 117/54 L 114/53 L Pulse Oximetry 96 95 08/20/20 13:45 08/20/20 13:50 08/20/20 13:55 Temperature Pulse Rate 83 83 83 Respiratory Rate Blood Pres
--- NOTE | 2020-08-21 08:09 | PM.PNNEP ---
Progress Note: A&P Assessment and Plan (1) Renal failure: Qualifiers: Renal failure chronicity: unspecified chronicity Qualified Code(s): N19 - Unspecified kidney failure Code(s): N19 - Unspecified kidney failure Status: Acute Assessment and Plan: unclear what baseline kidney function is is insult acute or acute on chronic?? suspect etiology multifactorial: - IV contrast exposure (on 08/13/[address] of chest) - altered hemodynamics/hypotension (he is still on pressors) - infection (pneumonia + COVD-19) - concurrent ARB use prior to admission renal ultrasound he does have a small right kidney. urine electrolytes show pre renal azotemia. He has COVID so we do not want to keep giving the IV fluids, lest oxygenation worsen. His unstable now and so will not do dialysis today. Discussed with Dr. Escobar (2) Acute hypoxemic respiratory failure: Code(s): J96.01 - Acute respiratory failure with hypoxia Status: Acute Assessment and Plan: due to pneumonia, COVD-19, and maybe CHF likely culminating in ARDS On Dexamethasone and supportive care including pulmonary toilet, ventilator, and prone position. (3) Shock: Code(s): R57.9 - Shock, unspecified Status: Acute Assessment and Plan: Blood pressure is worse and requiring more pressors. (4) COVID-19: Code(s): U07.1 - COVID-19 Status: Acute Assessment and Plan: tested positive on steroids not a candidate for remdesivir (due to renal disease) continue ventilator support Prone position (5) Pneumonia: Qualifiers: Laterality: unspecified laterality Lung location: unspecified part of lung Pneumonia type: due to unspecified organism Qualified Code(s): J18.9 - Pneumonia, unspecified organism Code(s): J18.9 - Pneumonia, unspecified organism Status: Acute Assessment and Plan: follow cultures on IV antibiotics for now Subjective Date/time seen: 08/21/20 08:09 Interval history: Patient received dry ultrafiltration yesterday afternoon. He developed V-tach during the treatment and had to be coded. His rhythm came back but has required pressors overnight. Discussed with Dr. Escobar Review of Systems Review of Systems: ROS unobtainable: Yes unobtainable due to medical condition Exam Narrative: Exam Narrative: General: WD/WN male intubated/sedate Heart: normal S1 and S2; no rub Lungs: coarse breath sounds bilaterally Abdomen: soft, nontender, nondistended, positive bowel sounds Extremities: no cyanosis or clubbing; 1+ edema Skin: No rash Objective Data Vital Signs Vital Signs: Vital Signs - 24 hr 08/20/20 10:00 08/20/20 11:41 08/20/20 11:55 Temperature Pulse Rate 78 76 76 Respiratory Rate 29 H 28 H Blood Pressure 130/60 Pulse Oximetry 99 97 97 08/20/20 12:00 08/20/20 13:30 08/20/20 13:38 Temperature 33.8 C L 34.8 C L Pulse Rate 86 84 82 Respiratory Rate 28 H 28 H Blood Pressure 132/56 L 117/54 L 114/53 L Pulse Oximetry 96 95 08/20/20 13:45 08/20/20 13:50 08/20/20 13:55 Temperature Pulse Rate 83 83 83 Respiratory Rate Blood Pressure 96/49 L 85/49 L 102/51 L Pulse Oximetry 08/20/20 14:00 08/20/20 14:05 08/20/20 14:15 Temperature Pulse Rate 102 H 94 96 Respiratory Rate 28 H Blood Pressure 102/56 L 163/58 H 191/60 H Pulse Oximetry 96 08/20/20 14:19 08/20/20 14:30 08/20/20 14:35 Temperature Pulse Rate 102 H 96 96 Respiratory Rate 28 H Blood Pressure 100/55 L 86/54 L Pulse Oximetry 08/20/20 14:40 08/20/20 14:41 08/20/20 14:46 Temperature Pulse Rate 100 99 101 H Respiratory Rate 28 H Blood Pressure 102/53 L 100/55 L Pulse Oximetry 97 08/20/20 14:48 08/20/20 14:50 08/20/20 15:00 Temperature Pulse Rate 101 H 102 H 102 H Respiratory Rate 28 H Blood Pressure 100/5
[2020-08-21 08:29] LABS: Glucose Point of Care 145 (65-105)
[2020-08-21 08:29] LABS: Glucose Point of Care 139 (65-105)
[2020-08-21 08:29] LABS: Glucose Point of Care 161 (65-105)
[2020-08-21 08:29] LABS: Glucose Point of Care 182 (65-105)
[2020-08-21] MEDS: CALCIUM GLUC 2,000 MG/NS 100ML 2,000 MG/100 ML BAG 100 MG IVPB (09:17)
[2020-08-21] MEDS: BUDESONIDE RESPULE NEB 0.5 MG/2 ML AMP INHALATION ×2 (09:43→19:30)
[2020-08-21 09:59] LABS: Glucose Point of Care 104 (65-105)
[2020-08-21 09:59] LABS: Glucose Point of Care 100 (65-105)
[2020-08-21] MEDS: INSULIN HUMAN REGULAR (*BKC) 100 UNITS in SODIUM CHLORIDE 0.9% IV 99 ML IV CONT (11:21)
--- NOTE | 2020-08-21 11:37 | PCDIET ---
ICU Rounding Note: Tube feedings held since codes on 08/20/20. MD order to resume tube feedings gradually (Nepro at goal of 35mL/hr) Last recorded weight is 116.9kg which is increased from last review. Bowel Motility: Last documented BM on 08/18/20. Labs Reviewed: Hgb (7.7), Hct (24.4), Glu (223), BUN (117), Cr (3.7), Alb (2.9), Sydnee Ca (7.98) Meds Noted: Albuterol, Pulmicort, Cefepime, Nimbex, Decadron, Fentanyl, IV Aspart, Lantus, Atrovent, Lopressor, Levophed, Propofol (rate of 20.8mL/hr provides 549kcal per day), Vancomycin, Vasopressin, Calcium Gluconate Additional Notes: Friction areas to cheeks and coccyx. Following daily in ICU rounds. Assessing/reassessing every Friday/Friday.
[2020-08-21] MEDS: NOREPINEPHRINE 8 MG/D5W 250 ML 8 MG/250 ML BAG 11.25 MG IV CONT (13:18)
--- NOTE | 2020-08-21 13:25 | WPDINTPN ---
Progress Note: A&P Assessment and Plan (1) Cardiac arrest: Code(s): I46.9 - Cardiac arrest, cause unspecified Status: Acute Assessment and Plan: Patient had a PEA arrest on 08/20 after being started on his 1st treatment of dialysis. He arrested twice. First time required several rounds of CPR and epinephrine. The 2nd time he only had 1 round of epinephrine and CPR before ROSC. -patient remains in shock, on vasopressin, epinephrine and Levophed. Have asked the bedside RN to discontinue epinephrine and increase Levophed as required -could be related to fluid shift, electrolyte imbalance, volume depletion (2) Acute on chronic respiratory failure with hypoxia and hypercapnia: Code(s): J96.21 - Acute and chronic respiratory failure with hypoxia; J96.22 - Acute and chronic respiratory failure with hypercapnia Status: Acute Assessment and Plan: Secondary to COVID-19 pneumonia and possible component of congestive heart failure. Patient was given Lasix for 1st couple days with no improvement Admitted 08/13, BiPAP 08/14, intubated 08/16 Patient was ventilated in prone position overnight and changed to supine this morning Chest x-ray ABG review Mixed acidosis. Will treat the metabolic with dialysis and respiratory will permissive hypercapnia. Patient on 6 mL/kg tidal volume. Patient currently on CMV mode of ventilation, tidal volume 400, rate of 28, peep of 16 and 100% FiO2. Will wean PEEP to 14. Continue neuromuscular raisa infusion Patient has been stable, post cardiac arrest, will maintain status quo at this time, if he desaturates further will prone the patient Completed course of empiric antibiotic therapy with Rocephin azithromycin. Bronchodilators Blood and sputum culture are negative as of now Discussed with Nephrology, will hold hemodialysis today as patient's electrolytes are stable (3) COVID-19: Code(s): U07.1 - COVID-19 Status: Acute Assessment and Plan: SARS-CoV-2 PCR positive 08/13 Patient is in Airborne, Droplet and Contact Isolation Continue dexamethasone Not a candidate for remdesivir due to elevated creatinine Follow inflammatory periodically (4) Pneumonia: Qualifiers: Laterality: unspecified laterality Lung location: unspecified part of lung Pneumonia type: due to unspecified organism Qualified Code(s): J18.9 - Pneumonia, unspecified organism Code(s): J18.9 - Pneumonia, unspecified organism Status: Acute Assessment and Plan: See above (5) Renal failure: Qualifiers: Renal failure chronicity: unspecified chronicity Qualified Code(s): N19 - Unspecified kidney failure Code(s): N19 - Unspecified kidney failure Status: Acute Assessment and Plan: MARCO A with baseline creatinine unknown Creatinine initially worsen but has improved since yesterday BUN is still high Patient is overall positive on volume. IV fluids were given earlier in the hospital course to try to reverse kidney dysfunction Consulted nephrology discussed with Dr. Mcclendon 1st dialysis was started on 08/20 a patient had cardiac arrest within minutes of starting the dialysis Right femoral temporary dialysis catheter placed Dr. Mcclendon to arrange hemodialysis Monitor renal function. Avoid nephrotoxic agents, renally dose medications. Renal ultrasound IMPRESSION:1. Mild atrophy of right kidney. No hydronephrosis. Monitor intake and output (6) Shock: Code(s): R57.9 - Shock, unspecified Status: Acute Assessment and Plan: Patient was hypotensive post intubation. Likely secondary to positive pressure ventilation and sedation Patient also had a cardiac arrest on 08/20, acquiring Levophed, epinephrine and vasopressin. Will wean epinephrine to off (7) Diabetes mellitus: Qualifiers: Diabetes mellitus type: type 2 Diabetes mellitus shelter insulin use: without dispatch associate use Diabetes mellitus complication status: with
--- NOTE | 2020-08-21 17:50 | PM.IMPN ---
Progress Note: A&P Assessment and Plan (1) Acute on chronic respiratory failure with hypoxia and hypercapnia: Code(s): J96.21 - Acute and chronic respiratory failure with hypoxia; J96.22 - Acute and chronic respiratory failure with hypercapnia Status: Acute Assessment and Plan: The patient is clearly fluid overloaded with diffuse crackles in all lung bella and this is likely secondary to the 1 liter of LR bolus he recieved in the ER. He has been admitted to IMU and at this time he appears to be in severe acute respiratory distess and very well may need to be intubated shortly. We will initiate bipap, transfer to ICU, Administer Lasix IV now. Consider further IV lasix as needed. Check morning CXR. Check ABG now and after Bipap therapy. 08/21/20 17:50 Patient is 75-year-old male with history of chronic respiratory failure on home oxygen 3 L however patient had been desaturating on his home oxygen was increased to 4 L without much improvement, he was also having fever, some of the family member been positive for COVID-19, patient and family were concerned about it and was brought to the emergency department, patient COVID was positive on 08/13/2020 in ER he was desaturating and patient was placed on BiPAP. Today patient was on BiPAP requiring 100% oxygen and was desaturating and patient was transferred to ICU seen by disassembler product, currently patient is maintaining his oxygen and does not need to be intubated, patient is a full code, will continue will continue dexamethasone patient cannot have remdesivir as he has elevated creatine, patient was intubated on 08/16/2020, patient is placed on prone position, he is on FiO2 80%, PEEP set at 16 and inreased respirotory rate to 28, prognosis is poor, on 08/[address] Mcclendon patient creatinine was rising, patient urine output was poor, patient oxygen requirement was rising from FiO2 80-90%, the territory sales representative recommended patient will benefit from hemodialysis in this will increase oxygenation and will help the extubate the patient, patient had dialysis and then later in the evening had cardiac arrest ACLS was started patient received CPR and epi and ROSC, I spoke with patient and she wanted to continue and keep the patient full code, today 08/21 today patient remains clinically stable discussed with disassembler product will continue the present managed no dialysis today, disassembler product again spoke with the patient's and request DNR, family will discuss and will decide will continue to monitor (2) Suspected 2019 novel coronavirus infection: Code(s): Z20.828 - Contact with and (suspected) exposure to other viral communicable diseases Status: Acute Assessment and Plan: The patient has been swabbed for COVID-19. We will initiate Dexamethasone IV daily. Continue droplet isolation and supplemental oxygen therapy. We will consider Remdesivir thearpy if the patient tests postiive for COVID-19. Lovenox. (3) Pneumonia: Qualifiers: Laterality: unspecified laterality Lung location: unspecified part of lung Pneumonia type: due to unspecified organism Qualified Code(s): J18.9 - Pneumonia, unspecified organism Code(s): J18.9 - Pneumonia, unspecified organism Status: Acute Assessment and Plan: r/o Viral vs. Bacterial pneumonia. Continue IV antibiotics for now. Bronchodilators. Steroid therapy. Blood and sputum cultures. RT assess and treat. (4) Severe sepsis: Code(s): A41.9 - Sepsis, unspecified organism; R65.20 - Severe sepsis without septic shock Status: Acute Assessment and Plan: with tachycardia and tachypnea and elevated lactic acid. Source of sepsis appears to be pulmonary but may also be urinary. continue IV antibiotics. blood/sputum/urine cultures. Check reflex lactic acid. Monitor urine output and vital signs closely. We will consider central line placement and vasopressors if necessary. (5) Renal failure:
[2020-08-21] MEDS: INSULIN GLARGINE (*BKC) 100 UNITS/ML 10 UNITS SUB-Q (18:30)
[2020-08-21 18:48] LABS: Glucose Point of Care 91 (65-105)
[2020-08-21 18:48] LABS: Glucose Point of Care 89 (65-105)
[2020-08-21 18:48] LABS: Glucose Point of Care 94 (65-105)
[2020-08-21 18:48] LABS: Glucose Point of Care 107 (65-105)
[2020-08-21 18:48] LABS: Glucose Point of Care 96 (65-105)
[2020-08-21 18:48] LABS: Glucose Point of Care 98 (65-105)
[2020-08-21 18:48] LABS: Glucose Point of Care 92 (65-105)
[2020-08-21 18:48] LABS: Glucose Point of Care 99 (65-105)
[2020-08-21] MEDS: CEFEPIME 0.5 GM in DEXTROSE 5% IN WATER 50 ML IVPB (22:07)
[2020-08-22] VITALS (58 sets, daily range): BP systolic 99–149; BP diastolic 47–87; PULSE 57–92; RESP 28; TEMP 35.3–36.8; O2SAT 90–99
[2020-08-22 00:18] LABS: Glucose Point of Care 97 (65-105)
[2020-08-22] MEDS: ALBUTEROL SULFATE NEB 2.5 MG/0.5 ML INH 5 MG INHALATION ×4 (02:33→20:40)
[2020-08-22] MEDS: IPRATROPIUM BR 0.02% INH SOLN 0.5 MG/2.5 ML VIAL INHALATION ×4 (02:33→20:40)
[2020-08-22] MEDS: FENTANYL 2,500MCG/NS250ML(*CRX 2,500 MCG/250 ML BAG 12.5 MCG IV CONT ×2 (03:01→21:58)
[2020-08-22 04:32] LABS: Basophils Percent Auto 0.2 % (0.2-1.2); Eosinophils Absolute Auto 0.3 K/mm3 (0-0.3); Eosinophils Percent Auto 1.7 % (0-4.4); Hematocrit 22.4 % (42.0-52.0); Hemoglobin 7.5 g/dL (14.0-18.0); Immature Granulocyte Absolute 2.22 K/mm3 (0.00-0.031); Immature Granulocyte Percent A 12.8 % (0-0.5); Lymphocytes Absolute Auto 1.08 K/mm3 (0.9-3.2); Lymphocytes Percent Auto 6.2 % (18.3-44.2); Mean Corpuscular HGB Conc 33.5 g/dl (32-36); Mean Corpuscular Hemoglobin 26.2 pg (26-34); Mean Corpuscular Volume 78.3 fl (80-100); Mean Platelet Volume 12.1 fl (7.4-10.4); Monocytes Absolute Auto 1.1 K/mm3 (0.1-0.6); Monocytes Percent Auto 6.5 % (2.6-8.5); Neutrophils Absolute Auto 12.6 K/mm3 (1.3-6.7); Neutrophils Percent Auto 72.6 % (45.5-73.1); Nucleated Red Blood Cells Perc 0.1 % (0.0-0.2); Platelet Count Result 209 k/mm3 (150-375); Red Blood Count 2.86 M/mm3 (4.6-6.20); Red Cell Distribution Width 16.2 % (11.5-14.5); White Blood Count 17.4 K/mm3 (4.5-10.0)
[2020-08-22] MEDS: CISATRACURIUM BESYLATE 200 MG in DEXTROSE 5% 80 ML 13.8 ML IV CONT ×2 (04:32→09:44)
[2020-08-22] MEDS: PROPOFOL IV EMULSION 100 ML 20.8 MG IV CONT ×5 (04:33→20:52)
[2020-08-22] MEDS: CENTRAL LINE FLUSH 10 ML IV PUSH ×4 (04:35→20:33)
[2020-08-22 04:42] LABS: Alveolar/Arterial O2 Gradient 531.8 mmHg; Base Excess ABG 0.7 mEq/l (+/-2.0); Carboxyhemoglobin 0.2 % THb (0-2.0); Fractional Inspired Oxygen 95 %; HCO3 ABG 27.3 mEq/l (22.0-26.0); Methemoglobin ABG 0.4 %THb (0-1.5); Oxygen Content ABG 11.4 %vol (16.0-22.0); Oxyhemoglobin 94.4 % THb (90.0-100.0); PCO2 ABG 55.1 mmHg (35.0-45.0); PO2 ABG 89.8 mmHg (80.0-100.0); PO2 FiO2 Ratio Arterial Blood 0.95 %; Total Hemoglobin 8.5 g/dL (12.0-18.0); pH ABG 7.313 (7.350-7.450)
[2020-08-22 04:43] LABS: Device VENTILATOR; Modified Allen's Test Unable to perform; Site Drawn LEFT RADIAL
[2020-08-22 04:44] LABS: Arterial Blood Gas PEEP 14 cmH2O; Arterial Blood Gas Tidal Volume 400 ml; Arterial Blood Gas Vent Mode ASSIST CONTROL; Arterial Blood Gas Ventilator rate 28 /MIN
[2020-08-22 05:02] LABS: Alanine Aminotransferase 55 U/L (4-50); Albumin Level 2.7 g/dL (3.5-5.1); Alkaline Phosphatase 104 U/L (38-126); Anion Gap 9 mmol/L (8-16); Aspartate Amino Transferase 98 U/L (17-59); Bilirubin,Total 0.5 mg/dL (0.2-1.3); Calcium 6.8 mg/dL (8.4-10.2); Carbon Dioxide 30 mmol/L (22-30); Chloride 98 mmol/L (98-107); Estimated CRCL calculation 15 ml/min; Estimated Glomerular Filt Rate 15; Glucose 126 mg/dL (75-110); Potassium 4.3 mmol/L (3.4-5.0); Sodium 137 mmol/L (137-145)
[2020-08-22 05:12] LABS: CRP 18.3 mg/dL (<1.0)
[2020-08-22 06:17] LABS: Blood Urea Nitrogen 127 mg/dL (9-20)
--- NOTE | 2020-08-22 08:19 | PM.PNNEP ---
Progress Note: A&P Assessment and Plan (1) Renal failure: Qualifiers: Renal failure chronicity: unspecified chronicity Qualified Code(s): N19 - Unspecified kidney failure Code(s): N19 - Unspecified kidney failure Status: Acute Assessment and Plan: unclear what baseline kidney function is suspect etiology multifactorial: - IV contrast exposure (on 08/13/[address] of chest) - altered hemodynamics/hypotension (he is still on pressors) - infection (pneumonia + COVD-19) - concurrent ARB use prior to admission renal ultrasound he does have a small right kidney. His creatinine is up and his BUN is above 100. Will do another dialysis treatment today. We will not take any fluid off and will slowly remove poisons. Discussed with Dr. Escobar (2) Acute hypoxemic respiratory failure: Code(s): J96.01 - Acute respiratory failure with hypoxia Status: Acute Assessment and Plan: due to pneumonia, COVD-19, and maybe CHF likely culminating in ARDS On Dexamethasone and supportive care including pulmonary toilet, ventilator, and prone position. (3) Shock: Code(s): R57.9 - Shock, unspecified Status: Acute Assessment and Plan: Blood pressure is better. Pressor requirements are down (4) COVID-19: Code(s): U07.1 - COVID-19 Status: Acute Assessment and Plan: tested positive on steroids not a candidate for remdesivir (due to renal disease) continue ventilator support (5) Pneumonia: Qualifiers: Laterality: unspecified laterality Lung location: unspecified part of lung Pneumonia type: due to unspecified organism Qualified Code(s): J18.9 - Pneumonia, unspecified organism Code(s): J18.9 - Pneumonia, unspecified organism Status: Acute Assessment and Plan: follow cultures on IV antibiotics Subjective Date/time seen: 08/22/20 08:19 Interval history: Patient looks a little more stable today. He is down to vasopressin 0.01 and norepinephrine 1. He can't give a history. He is on the ventilator. Review of Systems Review of Systems: ROS unobtainable: Yes unobtainable due to medical condition Exam Narrative: Exam Narrative: General: WD/WN male intubated/sedate Heart: normal S1 and S2; no rub Lungs: coarse breath sounds bilaterally Abdomen: soft, nontender, nondistended, positive bowel sounds Extremities: no cyanosis or clubbing; 1+ edema Skin: No rash Objective Data Vital Signs Vital Signs: Vital Signs - 24 hr 08/21/20 09:16 08/21/20 09:44 08/21/20 09:49 Temperature Pulse Rate 100 100 101 H Respiratory Rate 28 H 28 H Blood Pressure 114/50 L Pulse Oximetry 08/21/20 09:50 08/21/20 09:51 08/21/20 10:00 Temperature Pulse Rate 102 H 102 H 100 Respiratory Rate 28 H Blood Pressure 165/82 H 177/56 H Pulse Oximetry 98 98 08/21/20 10:09 08/21/20 10:20 08/21/20 11:19 Temperature Pulse Rate 100 102 H 102 H Respiratory Rate Blood Pressure 196/58 H 170/52 H 171/66 H Pulse Oximetry 08/21/20 11:24 08/21/20 11:40 08/21/20 11:58 Temperature Pulse Rate 100 103 H 97 Respiratory Rate Blood Pressure 162/60 H 165/62 H Pulse Oximetry 95 08/21/20 12:00 08/21/20 12:03 08/21/20 12:37 Temperature 36.6 C Pulse Rate 96 96 95 Respiratory Rate 28 H Blood Pressure 150/59 H 173/59 H 165/54 H Pulse Oximetry 94 08/21/20 13:18 08/21/20 14:00 08/21/20 14:06 Temperature Pulse Rate 95 97 97 Respiratory Rate 28 H 28 H Blood Pressure 165/54 H 153/57 H Pulse Oximetry 91 08/21/20 14:43 08/21/20 14:47 08/21/20 14:49 Temperature Pulse Rate 96 98 99 Respiratory Rate 28 H 28 H Blood Pressure Pulse Oximetry 92 08/21/20 15:07 08/21/20 16:00 08/21/20 17:00 Temperature 36.5 C Pulse Rate 97 91 91 Respiratory Rate 28 H 28 H 28 H Blood Pressure 15
[2020-08-22] MEDS: INSULIN GLARGINE (*BKC) 100 UNITS/ML 50 UNITS SUB-Q (08:30)
[2020-08-22] MEDS: DEXAMETHASONE SOD PHOS INJ 4 MG/ML VIAL 6 MG IV PUSH (08:32)
[2020-08-22] MEDS: ENOXAPARIN 40 MG/0.4 ML SYRINGE SUB-Q ×2 (08:32→20:32)
[2020-08-22] MEDS: BUDESONIDE RESPULE NEB 0.5 MG/2 ML AMP INHALATION ×2 (09:02→20:40)
--- NOTE | 2020-08-22 11:18 | PCDIET ---
Nutrition Follow-Up Complete: Nutrition Diagnosis: Inadequate oral intake related to oral intubation as evidenced by NPO status. Nutrition Goal: Patient to meet estimated nutritional needs. Goal met. Patient tolerating Nepro at 35mL/hr goal rate without reported issues. Continuing 30mL water flush every 4 hours. If medically appropriate, patient may benefit from use of soluble fiber per tube. Last recorded weight is 115 kg which is decreased from last review. Plan for dialysis today without fluid removal. Bowel Motility: Loose stools reported. Labs Reviewed: Hgb (7.5), Hct (22.4), Glu (126), BUN (127), Cr (4.70), Alb (2.7), Sydnee Ca (7.84) Meds Noted: Albuterol, Pulmicort, Cefepime, Vancomycin, Nimbex, Decadron, Lopressor, Fentanyl, Novolog, Lantus, Atrovent, Propofol (rate of 20.8mL/hr provides 549kcal per day) Additional Notes: No documented skin breakdown. Will continue to monitor with same goal. Nutrition Monitoring and Evaluation: Follow up every Friday/Friday.
[2020-08-22 12:42] LABS: Glucose Point of Care 140 (65-105)
--- NOTE | 2020-08-22 13:49 | PM.PNPUL ---
Progress Note: A&P Assessment and Plan (1) COVID-19: Code(s): U07.1 - COVID-19 Status: Acute Assessment and Plan: on dexamethasone, too ill and too late to use remdesivir benefits from prone positioning; has some left facial swelling (2) COPD (chronic obstructive pulmonary disease): Code(s): J44.9 - Chronic obstructive pulmonary disease, unspecified Status: Acute Assessment and Plan: - continue duonebs and pulmicort as ordered (3) CHF (congestive heart failure): Code(s): I50.9 - Heart failure, unspecified Status: Acute Assessment and Plan: (4) ARDS (adult respiratory distress syndrome): Code(s): J80 - Acute respiratory distress syndrome Status: Acute Assessment and Plan: - TV now is 450 which is higher than 400 ml ( 6 ml/kg) and plateau < 30 - agree with proning however his face is really swollen, and he needs a break - attempt to keep euvolemic (5) Cardiac arrest: Code(s): I46.9 - Cardiac arrest, cause unspecified Status: Acute Subjective Date/time seen: 08/22/20 13:49 Interval history: ARDS and COVID-19 has not been improving. On low tidal volume strategy. Had cardiac arrest yesterday after initiation of dialysis. Review of Systems Review of Systems: All systems reviewed & are unremarkable except as noted in HPI and below Exam Const: General: comfortable (sedated with fentanyl 125 mcg/hour and propofol 40 mcg/kg/hour), no acute distress and well developed Nutritional Appearance: obese HENMT: Head: normal to inspection, normocephalic and atraumatic Eyes: Periorbital: periorbital findings abnormal (edema) left Neck: Neck: normal visual inspection, trachea midline and supple Resp: Effort & Inspection: normal respiratory effort Auscultation: diminished lung sounds Cardio: Rate: regular rate Rhythm: regular rhythm Heart sounds: S1 normal heart sound present, S2 normal heart sound present, no gallops, no murmurs and Other heart sounds present (distant cardiac tones ) GI: Inspection: normal to inspection Auscultation: Hypoactive bowel sounds present Skin: General skin exam: normal color and no rashes or lesions noted Neuro: General: other (sedated and intubated) Extrem: General: normal to inspection and no clubbing, cyanosis or edema Psych: Mental Status: other (sedated) Objective Data Vital Signs Vital Signs: Vital Signs - 24 hr 08/21/20 14:00 08/21/20 14:06 08/21/20 14:43 Temperature Pulse Rate 97 97 96 Respiratory Rate 28 H 28 H 28 H Blood Pressure 153/57 H Pulse Oximetry 91 08/21/20 14:47 08/21/20 14:49 08/21/20 15:07 Temperature Pulse Rate 98 99 97 Respiratory Rate 28 H 28 H Blood Pressure 153/57 H Pulse Oximetry 92 08/21/20 16:00 08/21/20 17:00 08/21/20 17:01 Temperature 36.5 C Pulse Rate 91 91 92 Respiratory Rate 28 H 28 H Blood Pressure 149/50 H 141/53 H 141/53 H Pulse Oximetry 100 08/21/20 17:02 08/21/20 17:03 08/21/20 17:04 Temperature Pulse Rate 91 90 94 Respiratory Rate 28 H 28 H Blood Pressure 141/53 H 141/53 H Pulse Oximetry 08/21/20 17:35 08/21/20 18:00 08/21/20 18:11 Temperature Pulse Rate 91 89 86 Respiratory Rate 28 H 28 H Blood Pressure 126/62 Pulse Oximetry 100 99 08/21/20 19:34 08/21/20 19:35 08/21/20 20:00 Temperature 36.7 C Pulse Rate 86 87 83 Respiratory Rate 28 H 28 H Blood Pressure 120/47 L Pulse Oximetry 99 100 08/21/20 22:00 08/21/20 22:06 08/21/20 22:07 Temperature Pulse Rate 82 87 86 Respiratory Rate 28 H 28 H 28 H Blood Pressure 132/52 L 122/47 L Pulse Oximetry 98 08/21/20 22:58 08/22/20 00:00 08/22/20 02:00
--- NOTE | 2020-08-22 14:06 | WPDINTPN ---
Progress Note: A&P Assessment and Plan (1) Cardiac arrest: Code(s): I46.9 - Cardiac arrest, cause unspecified Status: Acute Assessment and Plan: Patient had a PEA arrest on 08/20 after being started on his 1st treatment of dialysis. He arrested twice. First time required several rounds of CPR and epinephrine. The 2nd time he only had 1 round of epinephrine and CPR before ROSC. -patient remains in shock, on vasopressin, epinephrine and Levophed. Have asked the bedside RN to discontinue epinephrine and increase Levophed as required -could be related to fluid shift, electrolyte imbalance, volume depletion (2) Acute on chronic respiratory failure with hypoxia and hypercapnia: Code(s): J96.21 - Acute and chronic respiratory failure with hypoxia; J96.22 - Acute and chronic respiratory failure with hypercapnia Status: Acute Assessment and Plan: Secondary to COVID-19 pneumonia and possible component of congestive heart failure. Patient was given Lasix for 1st couple days with no improvement Admitted 08/13, BiPAP 08/14, intubated 08/16 Patient did benefit from Protonix Chest x-ray ABG review Low tidal volume strategy, will decrease PEEP to 12 and 95% FiO2 Continue neuromuscular raisa infusion. Will start weaning neuromuscular raisa to turn off Wean FiO2 as tolerated Completed course of empiric antibiotic therapy with Rocephin azithromycin. Bronchodilators Blood and sputum culture are negative as of now Discussed with Nephrology, patient to get dialyzed today with no removal of fluid (3) COVID-19: Code(s): U07.1 - COVID-19 Status: Acute Assessment and Plan: SARS-CoV-2 PCR positive 08/13 Patient is in Airborne, Droplet and Contact Isolation Continue dexamethasone Not a candidate for remdesivir due to elevated creatinine Follow inflammatory periodically (4) Pneumonia: Qualifiers: Laterality: unspecified laterality Lung location: unspecified part of lung Pneumonia type: due to unspecified organism Qualified Code(s): J18.9 - Pneumonia, unspecified organism Code(s): J18.9 - Pneumonia, unspecified organism Status: Acute Assessment and Plan: See above (5) Renal failure: Qualifiers: Renal failure chronicity: unspecified chronicity Qualified Code(s): N19 - Unspecified kidney failure Code(s): N19 - Unspecified kidney failure Status: Acute Assessment and Plan: MARCO A with baseline creatinine unknown Dialysis started on 08/20 and patient had a cardiac arrest within minutes of starting the dialysis. Overall positive fluid balance Patient to get dialyzed today with no removal of fluid per Nephrology Patient has a right femoral temporary dialysis catheter (6) Shock: Code(s): R57.9 - Shock, unspecified Status: Acute Assessment and Plan: Resolved, patient is off all vasopressors Patient was hypotensive post intubation. Likely secondary to positive pressure ventilation and sedation Patient also had a cardiac arrest on 08/20, requiring Levophed, epinephrine and vasopressin. Currently off vasopressors (7) Diabetes mellitus: Qualifiers: Diabetes mellitus type: type 2 Diabetes mellitus longterm insulin use: without longterm use Diabetes mellitus complication status: without complication Qualified Code(s): E11.9 - Type 2 diabetes mellitus without complications Code(s): E11.9 - Type 2 diabetes mellitus without complications Status: Chronic Assessment and Plan: Accuchecks, SSI coverage Patient hyperglycemic which could be related to shock state as well as dexamethasone -insulin infusion has been turned off, patient Lantus and high-dose sliding scale (8) Hyperlipidemia: Qualifiers: Hyperlipidemia type: unspecified Qualified Code(s): E78.5 - Hyperlipidemia, unspecified Code(s): E78.5 - Hyperlipidemia, unspecified Status: Chronic Assessment and Plan:
[2020-08-22] MEDS: CISATRACURIUM BESYLATE 200 MG in DEXTROSE 5% 80 ML 10.35 ML IV CONT (17:33)
--- NOTE | 2020-08-22 17:43 | PM.IMPN ---
Progress Note: A&P Assessment and Plan (1) Cardiac arrest: Code(s): I46.9 - Cardiac arrest, cause unspecified Status: Acute Assessment and Plan: PEA arrest x 2 Has been on vent support. (2) ARDS (adult respiratory distress syndrome): Code(s): J80 - Acute respiratory distress syndrome Status: Acute Assessment and Plan: On vent. (3) Shock: Code(s): R57.9 - Shock, unspecified Status: Acute Assessment and Plan: Requiring vasopressors x 3 Continue to monitor (4) COPD (chronic obstructive pulmonary disease): Code(s): J44.9 - Chronic obstructive pulmonary disease, unspecified Status: Acute Assessment and Plan: MDI as needed Albuterol. (5) COVID-19: Code(s): U07.1 - COVID-19 Status: Acute Assessment and Plan: Currently off of Remdesivir and Dexamethasone. (6) Severe sepsis: Code(s): A41.9 - Sepsis, unspecified organism; R65.20 - Severe sepsis without septic shock Status: Acute Assessment and Plan: On broad spectrum antibioitcs. Requiring 3 vasopressors. (7) Acute on chronic respiratory failure with hypoxia and hypercapnia: Code(s): J96.21 - Acute and chronic respiratory failure with hypoxia; J96.22 - Acute and chronic respiratory failure with hypercapnia Status: Acute Assessment and Plan: On ventilator support. Appreciate Int/ CC note Subjective Date/time seen: 08/22/20 17:43 On vent. On Nimbex Review of Systems Review of Systems: Narrative: Patient on vent. Exam Narrative: Exam Narrative: Patient seen thru the glass door. Const: General: other (On ventilator.) Objective Data Vital Signs Vital Signs: Vital Signs - 24 hr 08/21/20 18:00 08/21/20 18:11 08/21/20 19:34 Temperature Pulse Rate 89 86 86 Respiratory Rate 28 H 28 H 28 H Blood Pressure 126/62 Pulse Oximetry 99 08/21/20 19:35 08/21/20 20:00 08/21/20 22:00 Temperature 98.0 F Pulse Rate 87 83 82 Respiratory Rate 28 H 28 H Blood Pressure 120/47 L 132/52 L Pulse Oximetry 99 100 98 08/21/20 22:06 08/21/20 22:07 08/21/20 22:58 Temperature Pulse Rate 87 86 82 Respiratory Rate 28 H 28 H Blood Pressure 122/47 L Pulse Oximetry 98 08/22/20 00:00 08/22/20 02:00 08/22/20 02:33 Temperature 97.8 F Pulse Rate 81 88 89 Respiratory Rate 28 H 28 H 28 H Blood Pressure 136/50 L 121/87 Pulse Oximetry 96 98 08/22/20 02:34 08/22/20 02:56 08/22/20 03:01 Temperature Pulse Rate 89 83 91 Respiratory Rate 28 H 28 H Blood Pressure Pulse Oximetry 96 08/22/20 03:02 08/22/20 04:00 08/22/20 04:32 Temperature 98.0 F Pulse Rate 88 83 84 Respiratory Rate 28 H 28 H Blood Pressure 148/54 H 119/53 L 99/51 L Pulse Oximetry 93 08/22/20 04:33 08/22/20 04:59 08/22/20 05:23 Temperature Pulse Rate 83 84 85 Respiratory Rate 28 H Blood Pressure 117/53 L Pulse Oximetry 93 08/22/20 06:00 08/22/20 07:45 08/22/20 08:00 Temperature 97.6 F Pulse Rate 86 92 87 Respiratory Rate 28 H 28 H 28 H Blood Pressure 124/54 L 128/59 L Pulse Oximetry 94 93 08/22/20 09:05 08/22/20 09:09 08/22/20 09:20 Temperature 95.5 F L Pulse Rate 88 87 88 Respiratory Rate 28 H 28 H Blood Pressure 115/47 L Pulse Oximetry 92 98 08/22/20 09:43 08/22/20 09:44 08/22/20 10:00 Temperature Pulse Rate 88 88 87 Respiratory Rate 28 H 28 H 28 H Blood Pressure 111/47 L 111/47 L 128/59 L Pulse Oximetry 94 08/22/20 10:08 08/22/20 10:15 08/22/20 10:30 Temperature Pulse Rate 88 57 L 86 Respiratory Rate Blood Pressure 126/54 L 126/48 L 132/51 L Pulse Oximetry 08/22/20 10:37 08/22/20 10:45 08/22/20 11:00 Temperature Pulse Rate 86 85 85 Respiratory Rate Blood Pressure 135/60 123/84 Pulse Oximetry 92 08/22/20 11:15 08/22/20 11:30 08/22/20 11:45 Temperature Pulse Rate 88 87 87 Respiratory Rate Blood Pressure 128/59 L 121/54 L 124
[2020-08-22 17:51] LABS: Glucose Point of Care 162 (65-105)
[2020-08-22 19:41] LABS: Vancomycin Random 10.1 ug/mL (10-20)
[2020-08-22] MEDS: CEFEPIME 0.5 GM in DEXTROSE 5% IN WATER 50 ML IVPB (20:11)
[2020-08-22 20:49] LABS: Glucose Point of Care 193 (65-105)
[2020-08-22 23:34] LABS: Glucose Point of Care 239 (65-105)
[2020-08-22] MEDS: INSULIN ASPART (*BKC) 100 UNITS/ML SUB-Q (23:36)
[2020-08-23] VITALS (56 sets, daily range): BP systolic 98–156; BP diastolic 31–64; PULSE 66–95; RESP 28–36; TEMP 35.5–36.9; O2SAT 87–100
[2020-08-23] MEDS: PROPOFOL IV EMULSION 100 ML 20.8 MG IV CONT (01:49)
[2020-08-23] MEDS: IPRATROPIUM BR 0.02% INH SOLN 0.5 MG/2.5 ML VIAL INHALATION ×4 (03:05→21:39)
[2020-08-23] MEDS: ALBUTEROL SULFATE NEB 2.5 MG/0.5 ML INH 5 MG INHALATION ×4 (03:06→21:39)
[2020-08-23 04:05] LABS: Alanine Aminotransferase 140 U/L (4-50); Albumin Level 2.8 g/dL (3.5-5.1); Alkaline Phosphatase 150 U/L (38-126); Anion Gap 9 mmol/L (8-16); Aspartate Amino Transferase 185 U/L (17-59); Bilirubin,Total 0.5 mg/dL (0.2-1.3); Blood Urea Nitrogen 97 mg/dL (9-20); Calcium 7.1 mg/dL (8.4-10.2); Carbon Dioxide 30 mmol/L (22-30); Chloride 92 mmol/L (98-107); Estimated CRCL calculation 16 ml/min; Estimated Glomerular Filt Rate 16; Glucose 226 mg/dL (75-110); Phosphorus 9.4 mg/dL (2.5-4.5); Potassium 4.8 mmol/L (3.4-5.0); Sodium 131 mmol/L (137-145)
[2020-08-23 04:07] LABS: Hematocrit 23.3 % (42.0-52.0); Hemoglobin 7.6 g/dL (14.0-18.0); Mean Corpuscular HGB Conc 32.6 g/dl (32-36); Mean Corpuscular Hemoglobin 26.1 pg (26-34); Mean Corpuscular Volume 80.1 fl (80-100); Mean Platelet Volume 12.2 fl (7.4-10.4); Platelet Count Result 202 k/mm3 (150-375); Red Blood Count 2.91 M/mm3 (4.6-6.20); Red Cell Distribution Width 16.4 % (11.5-14.5); White Blood Count 19.9 K/mm3 (4.5-10.0)
[2020-08-23 04:18] LABS: Alveolar/Arterial O2 Gradient 587.5 mmHg; Base Excess ABG 0.3 mEq/l (+/-2.0); Carboxyhemoglobin 0.3 % THb (0-2.0); Device VENTILATOR; Fractional Inspired Oxygen 100 %; HCO3 ABG 26.7 mEq/l (22.0-26.0); Methemoglobin ABG 0.4 %THb (0-1.5); Modified Allen's Test Unable to perform; Oxygen Content ABG 10.9 %vol (16.0-22.0); Oxygen Saturation ABG 93.5 % (95.0-100.0); Oxyhemoglobin 90.7 % THb (90.0-100.0); PCO2 ABG 52.2 mmHg (35.0-45.0); PO2 ABG 73.3 mmHg (80.0-100.0); PO2 FiO2 Ratio Arterial Blood 0.73 %; Reduced Hemoglobin 8.6 %THb (0-5.0); Site Drawn LEFT RADIAL; Total Hemoglobin 8.5 g/dL (12.0-18.0); pH ABG 7.326 (7.350-7.450)
[2020-08-23 04:19] LABS: Arterial Blood Gas PEEP 12 cmH2O; Arterial Blood Gas Tidal Volume 400 ml; Arterial Blood Gas Vent Mode ASSIST CONTROL; Arterial Blood Gas Ventilator rate 28 /MIN
[2020-08-23 04:48] LABS: Band Neutrophils Percent 3 % (0-6); Eosinophils Absolute Manual 1.19 K/mm3 (0.02-0.5); Eosinophils Percent Manual 6 % (0-4); Lymphocytes Absolute Manual 1.19 K/mm3 (1.1-4.5); Metamyelocytes Percent 2 %; Monocytes Absolute Manual 0.19 K/mm3 (0.1-0.90); Monocytes Percent Manual 1 % (3-9); Neutrophils Absolute Manual 16.91 K/mm3 (1.3-6.7); Neutrophils Percent Manual 82 % (46-73); Nucleated Red Blood Cells 1 %; Total Cells Counted 100
[2020-08-23 04:50] LABS: Platelet Estimate Adequate (Adequate)
[2020-08-23 04:51] LABS: Hypochromasia 1+ (NORMAL); Large Platelets Present
[2020-08-23] MEDS: INSULIN ASPART (*BKC) 100 UNITS/ML SUB-Q ×3 (05:43→23:51)
[2020-08-23] MEDS: CENTRAL LINE FLUSH 10 ML IV PUSH ×4 (05:44→20:42)
[2020-08-23 05:50] LABS: Glucose Point of Care 256 (65-105)
[2020-08-23] MEDS: PROPOFOL IV EMULSION 100 ML 31.3 MG IV CONT (06:43)
[2020-08-23] MEDS: ROCURONIUM BROMIDE 50 MG/5 ML VIAL IV PUSH (08:16)
[2020-08-23] MEDS: PROPOFOL IV EMULSION 100 ML 50 MG IV CONT ×4 (10:00→19:08)
[2020-08-23] MEDS: BUDESONIDE RESPULE NEB 0.5 MG/2 ML AMP INHALATION ×2 (10:20→21:39)
[2020-08-23] MEDS: ALBUMIN HUMAN 25% 12.5 GM/50ML 50 ML 999 GM (10:21)
--- NOTE | 2020-08-23 11:45 | PCDIET ---
ICU Rounding Note: Patient tolerating Nepro at 35mL/hr goal rate with 30mL water flush every 4 hours. Last recorded weight is 114.2kg which is decreased from last review, despite +I/O. Will monitor. Bowel Motility: Liquid stools, per RN. FMS in place. Labs Reviewed: Hgb (7.6), Hct (23.3), Glu (226), BUN (97), Cr (4.4), Na (131), Alb (2.8), Sydnee Ca (8.06), PO4 (9.4) Meds Noted: Albuterol, Pulmicort, Cefepime, Nimbex, Novolog, Lantus, Atrovent, Lopressor, Levophed, Propofol (rate of 50mL/hr provides 1320kcal per day), Vancomycin Additional Notes: Recommend continuing Nepro at 35mL/hr due to significant amount of calories from Propofol. Would also consider checking TG level. Following daily in ICU rounds. Assessing/reassessing every Friday/Friday.
[2020-08-23] MEDS: HEPARIN SODIUM 1,000 UNITS/ML VIAL 5000 UNITS (12:01)
[2020-08-23] MEDS: DEXAMETHASONE SOD PHOS INJ 4 MG/ML VIAL 6 MG IV PUSH (12:26)
[2020-08-23] MEDS: ENOXAPARIN 40 MG/0.4 ML SYRINGE SUB-Q ×2 (12:27→20:42)
[2020-08-23] MEDS: INSULIN GLARGINE (*BKC) 100 UNITS/ML 50 UNITS SUB-Q (12:27)
--- NOTE | 2020-08-23 12:49 | PM.IMPN ---
Progress Note: A&P Assessment and Plan (1) Cardiac arrest: Code(s): I46.9 - Cardiac arrest, cause unspecified Status: Acute Assessment and Plan: Currently on vent support. (2) ARDS (adult respiratory distress syndrome): Code(s): J80 - Acute respiratory distress syndrome Status: Acute Assessment and Plan: Requiring Nymbex + Flolan On ventilator support. (3) Shock: Code(s): R57.9 - Shock, unspecified Status: Acute Assessment and Plan: On one vasopressor currently. (4) COPD (chronic obstructive pulmonary disease): Code(s): J44.9 - Chronic obstructive pulmonary disease, unspecified Status: Acute Assessment and Plan: On ventilator support. Continue breathing treatments (5) Acute on chronic respiratory failure with hypoxia and hypercapnia: Code(s): J96.21 - Acute and chronic respiratory failure with hypoxia; J96.22 - Acute and chronic respiratory failure with hypercapnia Status: Acute Assessment and Plan: Patient with high FiO2 demands. On life support Appreciate Int/CC note. Subjective Date/time seen: 08/23/20 12:49 Patient is on vent support. Review of Systems Review of Systems: Narrative: Patient on life support. Exam Narrative: Exam Narrative: Patient seen thru glass door. Exam is limited to inspection. Const: General: other (On ventilator support. Under sedation.) HENMT: Head: normocephalic Other: ETT in place. Neuro: General: other (Under sedation.) Objective Data Vital Signs Vital Signs: Vital Signs - 24 hr 08/22/20 14:00 08/22/20 14:35 08/22/20 14:37 Temperature Pulse Rate 88 88 88 Respiratory Rate 28 H 28 H Blood Pressure 136/55 L Pulse Oximetry 95 96 08/22/20 15:56 08/22/20 16:00 08/22/20 16:30 Temperature 97.5 F L Pulse Rate 89 89 91 Respiratory Rate 28 H 28 H 28 H Blood Pressure 138/54 L 136/58 L Pulse Oximetry 92 08/22/20 17:20 08/22/20 17:24 08/22/20 17:33 Temperature Pulse Rate 88 89 88 Respiratory Rate 28 H 28 H Blood Pressure 130/53 L 130/53 L Pulse Oximetry 92 08/22/20 17:37 08/22/20 17:39 08/22/20 18:00 Temperature Pulse Rate 89 88 88 Respiratory Rate 28 H 28 H 28 H Blood Pressure 134/57 L Pulse Oximetry 91 08/22/20 20:00 08/22/20 20:19 08/22/20 20:20 Temperature 97.8 F Pulse Rate 89 88 91 Respiratory Rate 28 H 28 H Blood Pressure 121/52 L Pulse Oximetry 90 92 08/22/20 20:52 08/22/20 21:58 08/22/20 22:00 Temperature Pulse Rate 86 88 87 Respiratory Rate 28 H 28 H 28 H Blood Pressure 138/54 L Pulse Oximetry 94 08/22/20 23:02 08/22/20 23:17 08/23/20 00:00 Temperature 98.4 F Pulse Rate 87 85 85 Respiratory Rate 28 H 28 H Blood Pressure 149/49 H 145/54 H Pulse Oximetry 90 90 08/23/20 01:49 08/23/20 02:00 08/23/20 02:16 Temperature Pulse Rate 95 90 91 Respiratory Rate 28 H 28 H 28 H Blood Pressure 150/53 H Pulse Oximetry 90 08/23/20 02:20 08/23/20 04:00 08/23/20 05:21 Temperature 98.4 F Pulse Rate 88 88 91 Respiratory Rate 28 H Blood Pressure 143/51 H Pulse Oximetry 87 L 97 96 08/23/20 05:28 08/23/20 05:54 08/23/20 06:00 Temperature Pulse Rate 91 90 90 Respiratory Rate 28 H 32 H 32 H Blood Pressure 149/55 H 138/58 L Pulse Oximetry 88 L 08/23/20 06:43 08/23/20 08:00 08/23/20 08:30 Temperature 97.6 F Pulse Rate 91 89 94 Respiratory Rate 31 H 31 H 30 H Blood Pressure 118/48 L Pulse Oximetry 91 08/23/20 09:00 08/23/20 09:37 08/23/20 09:45 Temperature 98.1 F Pulse Rate 86 87 86 Respiratory Rate 28 H Blood Pressure 131/44 L 124/47 L 133/51 L Pulse Oximetry 90 08/23/20 10:00 08/23/20 10:10 08/23/20 10:15 Temperature Pulse Rate 84 86 85 Respiratory Rate 28 H 28 H Blood Pressure 109/53 L 103/48 L Pulse Oximetry 92 94 08/23/20 10:20 08/23/20 10:30 08/23/20 10:45 Temperature Pulse Rate 92 84 82 Respiratory Rate 28 H
--- NOTE | 2020-08-23 13:55 | WPDINTPN ---
Progress Note: A&P Assessment and Plan (1) Cardiac arrest: Code(s): I46.9 - Cardiac arrest, cause unspecified Status: Acute Assessment and Plan: Patient had a PEA arrest on 08/20 after being started on his 1st treatment of dialysis. He arrested twice. First time required several rounds of CPR and epinephrine. The 2nd time he only had 1 round of epinephrine and CPR before ROSC. -patient remains in shock, on vasopressin, epinephrine and Levophed. Have asked the bedside RN to discontinue epinephrine and increase Levophed as required -could be related to fluid shift, electrolyte imbalance, volume depletion (2) Acute on chronic respiratory failure with hypoxia and hypercapnia: Code(s): J96.21 - Acute and chronic respiratory failure with hypoxia; J96.22 - Acute and chronic respiratory failure with hypercapnia Status: Acute Assessment and Plan: Secondary to COVID-19 pneumonia and possible component of congestive heart failure. Patient was given Lasix for 1st couple days with no improvement Admitted 08/13, BiPAP 08/14, intubated 08/16 Patient did benefit from Protonix Chest x-ray ABG review Low tidal volume strategy, will decrease PEEP to 14 and 100% FiO2 Of neuromuscular blockade since 08/22. Sedation with fentanyl and propofol Completed course of empiric antibiotic therapy with Rocephin azithromycin. Bronchodilators Blood and sputum culture are negative as of now Discussed with Nephrology, will remove fluid today with dialysis as he tolerated dialysis on 08/22 without fluid removal (3) COVID-19: Code(s): U07.1 - COVID-19 Status: Acute Assessment and Plan: SARS-CoV-2 PCR positive 08/13 Patient is in Airborne, Droplet and Contact Isolation Continue dexamethasone Not a candidate for remdesivir due to elevated creatinine Follow inflammatory periodically (4) Pneumonia: Qualifiers: Laterality: unspecified laterality Lung location: unspecified part of lung Pneumonia type: due to unspecified organism Qualified Code(s): J18.9 - Pneumonia, unspecified organism Code(s): J18.9 - Pneumonia, unspecified organism Status: Acute Assessment and Plan: See above (5) Renal failure: Qualifiers: Renal failure chronicity: unspecified chronicity Qualified Code(s): N19 - Unspecified kidney failure Code(s): N19 - Unspecified kidney failure Status: Acute Assessment and Plan: MARCO A with baseline creatinine unknown Dialysis started on 08/20 and patient had a cardiac arrest within minutes of starting the dialysis. Overall positive fluid balance Dialysis per Nephrology Patient has a right femoral temporary dialysis catheter (6) Shock: Code(s): R57.9 - Shock, unspecified Status: Acute Assessment and Plan: Resolved, patient is off all vasopressors Patient was hypotensive post intubation. Likely secondary to positive pressure ventilation and sedation Patient also had a cardiac arrest on 08/20, requiring Levophed, epinephrine and vasopressin. 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 Diabetes mellitus complication status: without complication Qualified Code(s): E11.9 - Type 2 diabetes mellitus without complications Code(s): E11.9 - Type 2 diabetes mellitus without complications Status: Chronic Assessment and Plan: Accuchecks, SSI coverage Patient hyperglycemic which could be related to shock state as well as dexamethasone -insulin infusion has been turned off, patient Lantus and high-dose sliding scale (8) Hyperlipidemia: Qualifiers: Hyperlipidemia type: unspecified Qualified Code(s): E78.5 - Hyperlipidemia, unspecified Code(s): E78.5 - Hyperlipidemia, unspecified Status: Chronic Assessment and Plan: Continue atorvastatin Additional Plan DV
[2020-08-23 14:15] LABS: Glucose Point of Care 182 (65-105)
[2020-08-23] MEDS: CISATRACURIUM BESYLATE 200 MG in DEXTROSE 5% 80 ML 10.28 ML IV CONT (15:42)
--- NOTE | 2020-08-23 16:32 | PM.PNNEP ---
Progress Note: A&P Assessment and Plan (1) Renal failure: Qualifiers: Renal failure chronicity: unspecified chronicity Qualified Code(s): N19 - Unspecified kidney failure Code(s): N19 - Unspecified kidney failure Status: Acute Assessment and Plan: unclear what baseline kidney function is suspect etiology multifactorial: - IV contrast exposure (on 08/13/[address] of chest) - altered hemodynamics/hypotension (he is still on pressors) - infection (pneumonia + COVD-19) - concurrent ARB use prior to admission renal ultrasound he does have a small right kidney. Patient exhibits signs of volume overload. Will try dialyzing today and see if we can get some fluid off. Will start slowly. Discussed with Dr. Escobar (2) Acute hypoxemic respiratory failure: Code(s): J96.01 - Acute respiratory failure with hypoxia Status: Acute Assessment and Plan: due to pneumonia, COVD-19, and maybe CHF likely culminating in ARDS On Dexamethasone and supportive care including pulmonary toilet, ventilator, and prone position. (3) Shock: Code(s): R57.9 - Shock, unspecified Status: Acute Assessment and Plan: Blood pressure is better. Pressor requirements are down (4) COVID-19: Code(s): U07.1 - COVID-19 Status: Acute Assessment and Plan: tested positive on steroids not a candidate for remdesivir (due to renal disease) continue ventilator support (5) Pneumonia: Qualifiers: Laterality: unspecified laterality Lung location: unspecified part of lung Pneumonia type: due to unspecified organism Qualified Code(s): J18.9 - Pneumonia, unspecified organism Code(s): J18.9 - Pneumonia, unspecified organism Status: Acute Assessment and Plan: follow cultures on IV antibiotics Subjective Date/time seen: 08/23/20 16:32 Interval history: Patient is doing better. He can't give a history. Still volume overloaded. He is going to be starting dialysis in a few minutes. He is on the ventilator. Review of Systems Review of Systems: ROS unobtainable: Yes unobtainable due to medical condition Exam Narrative: Exam Narrative: General: WD/WN male intubated/sedate Heart: normal S1 and S2; no rub Lungs: coarse breath sounds bilaterally Abdomen: soft, nontender, nondistended, positive bowel sounds Extremities: no cyanosis or clubbing; 1-2+ edema Skin: No rash But he does have some breakdown in parts of his skin. Objective Data Vital Signs Vital Signs: Vital Signs - 24 hr 08/22/20 17:20 08/22/20 17:24 08/22/20 17:33 Temperature Pulse Rate 88 89 88 Respiratory Rate 28 H 28 H Blood Pressure 130/53 L 130/53 L Pulse Oximetry 92 08/22/20 17:37 08/22/20 17:39 08/22/20 18:00 Temperature Pulse Rate 89 88 88 Respiratory Rate 28 H 28 H 28 H Blood Pressure 134/57 L Pulse Oximetry 91 08/22/20 20:00 08/22/20 20:19 08/22/20 20:20 Temperature 36.6 C Pulse Rate 89 88 91 Respiratory Rate 28 H 28 H Blood Pressure 121/52 L Pulse Oximetry 90 92 08/22/20 20:52 08/22/20 21:58 08/22/20 22:00 Temperature Pulse Rate 86 88 87 Respiratory Rate 28 H 28 H 28 H Blood Pressure 138/54 L Pulse Oximetry 94 08/22/20 23:02 08/22/20 23:17 08/23/20 00:00 Temperature 36.9 C Pulse Rate 87 85 85 Respiratory Rate 28 H 28 H Blood Pressure 149/49 H 145/54 H Pulse Oximetry 90 90 08/23/20 01:49 08/23/20 02:00 08/23/20 02:16 Temperature Pulse Rate 95 90 91 Respiratory Rate 28 H 28 H 28 H Blood Pressure 150/53 H Pulse Oximetry 90 08/23/20 02:20 08/23/20 04:00 08/23/20 05:21 Temperature 36.9 C Pulse Rate 88 88 91 Respiratory Rate 28 H Blood Pressure 143/51 H Pulse Oximetry 87 L 97 96 08/23/20 05:28 08/23/20 05:54 08/23/20 06:00 Temperature Pulse Rate 91 90 90 Res
[2020-08-23] MEDS: ALTEPLASE 2 MG VIAL (CATHFLO) IV PUSH (16:39)
[2020-08-23] MEDS: FENTANYL 2,500MCG/NS250ML(*CRX 2,500 MCG/250 ML BAG 15 MCG IV CONT (17:01)
[2020-08-23 17:12] LABS: Glucose Point of Care 257 (65-105)
[2020-08-23 20:31] LABS: Vancomycin Random 16.9 ug/mL (10-20)
[2020-08-23] MEDS: PROPOFOL IV EMULSION 100 ML 27.8 MG IV CONT (20:40)
[2020-08-23] MEDS: CEFEPIME 0.5 GM in DEXTROSE 5% IN WATER 50 ML IVPB (20:41)
[2020-08-24] VITALS (48 sets, daily range): BP systolic 102–158; BP diastolic 44–75; PULSE 76–91; RESP 28; TEMP 35.5–36.8; O2SAT 90–97
[2020-08-24] MEDS: PROPOFOL IV EMULSION 100 ML 27.8 MG IV CONT ×6 (01:20→18:23)
[2020-08-24 01:26] LABS: Glucose Point of Care 233 (65-105)
[2020-08-24] MEDS: IPRATROPIUM BR 0.02% INH SOLN 0.5 MG/2.5 ML VIAL INHALATION ×4 (03:13→21:09)
[2020-08-24] MEDS: ALBUTEROL SULFATE NEB 2.5 MG/0.5 ML INH 5 MG INHALATION ×4 (03:13→21:09)
[2020-08-24] MEDS: CISATRACURIUM BESYLATE 200 MG in DEXTROSE 5% 80 ML 8.57 ML IV CONT ×2 (04:58→16:37)
[2020-08-24 05:22] LABS: Alveolar/Arterial O2 Gradient 563.8 mmHg; Base Excess ABG 1.1 mEq/l (+/-2.0); Carboxyhemoglobin 0.3 % THb (0-2.0); Fractional Inspired Oxygen 100 %; HCO3 ABG 27.6 mEq/l (22.0-26.0); Methemoglobin ABG 0.4 %THb (0-1.5); Oxygen Content ABG 10.5 %vol (16.0-22.0); Oxygen Saturation ABG 96.4 % (95.0-100.0); Oxyhemoglobin 94.6 % THb (90.0-100.0); PCO2 ABG 55.9 mmHg (35.0-45.0); PO2 ABG 93.3 mmHg (80.0-100.0); PO2 FiO2 Ratio Arterial Blood 0.93 %; Reduced Hemoglobin 4.7 %THb (0-5.0); pH ABG 7.312 (7.350-7.450)
[2020-08-24 05:24] LABS: Arterial Blood Gas PEEP 16 cmH2O; Arterial Blood Gas Tidal Volume 400 ml; Arterial Blood Gas Vent Mode CMV; Arterial Blood Gas Ventilator rate 28 /MIN; Device VENTILATOR; Modified Allen's Test Pass; Site Drawn LEFT RADIAL; Total Hemoglobin 7.8 g/dL (12.0-18.0)
[2020-08-24 05:56] LABS: Estimated CRCL calculation 15 ml/min; Estimated Glomerular Filt Rate 15
[2020-08-24] MEDS: CENTRAL LINE FLUSH 10 ML IV PUSH ×4 (06:32→20:28)
[2020-08-24 06:34] LABS: Glucose Point of Care 175 (65-105)
[2020-08-24] MEDS: INSULIN GLARGINE (*BKC) 100 UNITS/ML 50 UNITS SUB-Q (07:42)
[2020-08-24] MEDS: ENOXAPARIN 40 MG/0.4 ML SYRINGE SUB-Q ×2 (07:43→20:28)
[2020-08-24] MEDS: BUDESONIDE RESPULE NEB 0.5 MG/2 ML AMP INHALATION ×2 (09:03→21:09)
--- NOTE | 2020-08-24 10:25 | PM.PNPUL ---
Progress Note: A&P Assessment and Plan (1) COVID-19: Code(s): U07.1 - COVID-19 Status: Acute Assessment and Plan: on dexamethasone, too ill and too late to use remdesivir benefits from prone positioning; has some left facial swelling (2) COPD (chronic obstructive pulmonary disease): Code(s): J44.9 - Chronic obstructive pulmonary disease, unspecified Status: Acute Assessment and Plan: - continue duonebs and pulmicort as ordered (3) CHF (congestive heart failure): Code(s): I50.9 - Heart failure, unspecified Status: Acute Assessment and Plan: (4) ARDS (adult respiratory distress syndrome): Code(s): J80 - Acute respiratory distress syndrome Status: Acute Assessment and Plan: - TV now is 450 which is higher than 400 ml ( 6 ml/kg) and plateau < 30 - agree with proning however his face is really swollen, and he needs a break - attempt to keep euvolemic (5) Cardiac arrest: Code(s): I46.9 - Cardiac arrest, cause unspecified Status: Acute Subjective Date/time seen: 08/24/20 10:25 Interval history: Right pleural effusion has improved and gas exchange has slight improved but still requiring high vent settings with current PEEP at 16. TV at 6 ml/kg currently. Review of Systems Review of Systems: All systems reviewed & are unremarkable except as noted in HPI and below Exam Const: General: comfortable (sedated with fentanyl 125 mcg/hour and propofol 40 mcg/kg/hour), no acute distress and well developed Nutritional Appearance: obese HENMT: Head: normal to inspection, normocephalic and atraumatic Eyes: Periorbital: periorbital findings abnormal (edema) left Neck: Neck: normal visual inspection, trachea midline and supple Resp: Effort & Inspection: normal respiratory effort Auscultation: diminished lung sounds Cardio: Rate: regular rate Rhythm: regular rhythm Heart sounds: S1 normal heart sound present, S2 normal heart sound present, no gallops, no murmurs and Other heart sounds present (distant cardiac tones ) GI: Inspection: normal to inspection Auscultation: Hypoactive bowel sounds present Skin: General skin exam: normal color and no rashes or lesions noted Neuro: General: other (sedated and intubated) Extrem: General: normal to inspection and no clubbing, cyanosis or edema Psych: Mental Status: other (sedated) Objective Data Vital Signs Vital Signs: Vital Signs - 24 hr 08/23/20 10:30 08/23/20 10:45 08/23/20 11:00 Temperature Pulse Rate 84 82 84 Respiratory Rate Blood Pressure 109/53 L 109/47 L 113/45 L Pulse Oximetry 08/23/20 11:15 08/23/20 11:30 08/23/20 11:45 Temperature Pulse Rate 83 83 83 Respiratory Rate Blood Pressure 113/49 L 108/48 L 104/63 Pulse Oximetry 08/23/20 12:00 08/23/20 12:07 08/23/20 12:12 Temperature 36.3 C L Pulse Rate 83 83 83 Respiratory Rate 28 H Blood Pressure 103/48 L 98/40 L Pulse Oximetry 100 94 08/23/20 12:15 08/23/20 14:00 08/23/20 14:35 Temperature 36.9 C Pulse Rate 83 85 81 Respiratory Rate 28 H 28 H Blood Pressure 118/53 L 123/46 L Pulse Oximetry 98 94 94 08/23/20 14:39 08/23/20 14:55 08/23/20 15:09 Temperature Pulse Rate 82 90 89 Respiratory Rate 28 H 36 H 36 H Blood Pressure Pulse Oximetry 08/23/20 15:12 08/23/20 15:42 08/23/20 16:00 Temperature 35.9 C L Pulse Rate 87 92 90 Respiratory Rate 35 H 31 H 28 H Blood Pressure 130/42 L 99/44 L Pulse Oximetry 90 08/23/20 16:36 08/23/20 16:42 08/23/20 16:43 Temperature Pulse Rate 69 68 74 Respiratory Rate 28 H 28 H 28 H Blood Pressure 99/31 L Pulse Oximetry 08/23/20 17:01 1
[2020-08-24] MEDS: FENTANYL 2,500MCG/NS250ML(*CRX 2,500 MCG/250 ML BAG 15 MCG IV CONT (10:53)
--- NOTE | 2020-08-24 11:37 | PCDIET ---
ICU Rounding Note: Patient tolerating Nepro at 35mL/hr goal rate with 30mL water flush every 4 hours. Last recorded weight is 112.8kg which is decreased from last review. Patient had 1.5L UF yesterday with plan to remove 3L today. Bowel Motility: FMS in place for loose stools. Labs Reviewed: Glu (175), Cr (4.7) Meds Noted: Propofol (rate of 27.8mL/hr provides 733kcal per day), Albuterol, Pulmicort, Cefepime, Nimbex, Fentanyl, Lantus, Atrovent, Lopressor, Levophed, Vancomycin Additional Notes: Right and left cheeks and coccyx with friction areas. Following daily in ICU rounds. Assessing/reassessing every Friday/Friday.
--- NOTE | 2020-08-24 13:03 | PM.PNNEP ---
Progress Note: A&P Assessment and Plan (1) Renal failure: Qualifiers: Renal failure chronicity: unspecified chronicity Qualified Code(s): N19 - Unspecified kidney failure Code(s): N19 - Unspecified kidney failure Status: Acute Assessment and Plan: unclear what baseline kidney function is suspect etiology multifactorial: - IV contrast exposure (on 08/13/[address] of chest) - altered hemodynamics/hypotension (he is still on pressors) - infection (pneumonia + COVD-19) - concurrent ARB use prior to admission renal ultrasound he does have a small right kidney. His blood pressure is better. Try to go for 3L but it looks like his pressure will only tolerate is taking to and half.. Will do another dialysis tomorrow. Possibly dry ultrafiltration depending on the labs. (2) Acute hypoxemic respiratory failure: Code(s): J96.01 - Acute respiratory failure with hypoxia Status: Acute Assessment and Plan: due to pneumonia, COVD-19, and maybe CHF likely culminating in ARDS On Dexamethasone and supportive care including pulmonary toilet, ventilator, and prone position. (3) Shock: Code(s): R57.9 - Shock, unspecified Status: Acute Assessment and Plan: Blood pressure is better. Pressors off (4) COVID-19: Code(s): U07.1 - COVID-19 Status: Acute Assessment and Plan: tested positive on steroids not a candidate for remdesivir (due to renal disease) continue ventilator support (5) Pneumonia: Qualifiers: Laterality: unspecified laterality Lung location: unspecified part of lung Pneumonia type: due to unspecified organism Qualified Code(s): J18.9 - Pneumonia, unspecified organism Code(s): J18.9 - Pneumonia, unspecified organism Status: Acute Assessment and Plan: follow cultures on IV antibiotics Subjective Date/time seen: 08/24/20 13:03 Interval history: Patient is doing better. He is still on the ventilator. He is off pressors. His blood pressure is in the 140s. He is on dialysis and tolerating it well. seen at 12;30pm Review of Systems Review of Systems: ROS unobtainable: Yes unobtainable due to medical condition Exam Narrative: Exam Narrative: General: WD/WN male intubated/sedate Heart: normal S1 and S2; no rub Lungs: coarse breath sounds bilaterally Abdomen: soft, nontender, nondistended, positive bowel sounds Extremities: 1-2+ edema Skin: No rash or subcu nodules Objective Data Vital Signs Vital Signs: Vital Signs - 24 hr 08/23/20 14:00 08/23/20 14:35 08/23/20 14:39 Temperature Pulse Rate 85 81 82 Respiratory Rate 28 H 28 H Blood Pressure 123/46 L Pulse Oximetry 94 94 08/23/20 14:55 08/23/20 15:09 08/23/20 15:12 Temperature Pulse Rate 90 89 87 Respiratory Rate 36 H 36 H 35 H Blood Pressure Pulse Oximetry 08/23/20 15:42 08/23/20 16:00 08/23/20 16:36 Temperature 35.9 C L Pulse Rate 92 90 69 Respiratory Rate 31 H 28 H 28 H Blood Pressure 130/42 L 99/44 L Pulse Oximetry 90 08/23/20 16:42 08/23/20 16:43 08/23/20 17:01 Temperature Pulse Rate 68 74 74 Respiratory Rate 28 H 28 H 28 H Blood Pressure 99/31 L Pulse Oximetry 08/23/20 18:00 08/23/20 18:01 08/23/20 18:36 Temperature Pulse Rate 88 80 88 Respiratory Rate 28 H 28 H Blood Pressure 135/57 L Pulse Oximetry 93 95 08/23/20 19:06 08/23/20 19:08 08/23/20 20:00 Temperature 36.1 C L Pulse Rate 87 88 86 Respiratory Rate 28 H 28 H 28 H Blood Pressure 138/61 145/51 H Pulse Oximetry 90 08/23/20 20:15 08/23/20 20:40 08/23/20 20:49 Temperature Pulse Rate 90 85 87 Respiratory Rate 28 H 28 H Blood Pressure 133/55 L Pulse Oximetry 87 L 08/23/20 21:40 08/23/20 21:52 08/23/20 22:00 Temperature Pulse Rate 89 90 89 Respiratory Rate 29 H 31 H 31 H Blood
[2020-08-24 13:05] LABS: Glucose Point of Care 179 (65-105)
--- NOTE | 2020-08-24 13:47 | P.PNINT_ITS ---
Progress Note: A&P Assessment and Plan (1) Cardiac arrest: Code(s): I46.9 - Cardiac arrest, cause unspecified Status: Acute Assessment and Plan: Patient had a PEA arrest on 08/20 after being started on his 1st treatment of dialysis. He arrested twice. First time required several rounds of CPR and epinephrine. The 2nd time he only had 1 round of epinephrine and CPR before ROSC. -patient remains in shock, on vasopressin, epinephrine and Levophed. Have asked the bedside RN to discontinue epinephrine and increase Levophed as required -could be related to fluid shift, electrolyte imbalance, volume depletion (2) Acute on chronic respiratory failure with hypoxia and hypercapnia: Code(s): J96.21 - Acute and chronic respiratory failure with hypoxia; J96.22 - Acute and chronic respiratory failure with hypercapnia Status: Acute Assessment and Plan: Secondary to COVID-19 pneumonia and possible component of congestive heart failure. Patient was given Lasix for 1st couple days with no improvement Admitted 08/13, BiPAP 08/14, intubated 08/16 Chest x-ray ABG reviewed, Low tidal volume strategy, will decrease PEEP to 14 and 100% FiO2, wean FiO2 as tolerated Neuromuscular blockade restarted on 08/23 Sedation with fentanyl and propofol Completed course of empiric antibiotic therapy with Rocephin azithromycin. Continue Bronchodilators Blood and sputum culture are negative as of now Discussed with Nephrology, will remove fluid daily for at least the next 2-3 days as tolerated (3) COVID-19: Code(s): U07.1 - COVID-19 Status: Acute Assessment and Plan: SARS-CoV-2 PCR positive 08/13 Patient on Airborne, Droplet and Contact Isolation 10 day course of dexamethasone and did on 08/23 Patient was not a candidate for remdesivir due to elevated creatinine/acute on chronic kidney disease Follow inflammatory periodically (4) Pneumonia: Qualifiers: Laterality: unspecified laterality Lung location: unspecified part of lung Pneumonia type: due to unspecified organism Qualified Code(s): J18.9 - Pneumonia, unspecified organism Code(s): J18.9 - Pneumonia, unspecified organism Status: Acute Assessment and Plan: See above (5) Renal failure: Qualifiers: Renal failure chronicity: unspecified chronicity Qualified Code(s): N19 - Unspecified kidney failure Code(s): N19 - Unspecified kidney failure Status: Acute Assessment and Plan: MARCO A with baseline creatinine unknown Dialysis started on 08/20 and patient had a cardiac arrest within minutes of starting the dialysis. Overall positive fluid balance Dialysis per Nephrology Patient has a right femoral temporary dialysis catheter (6) Shock: Code(s): R57.9 - Shock, unspecified Status: Acute Assessment and Plan: Resolved, patient is off all vasopressors Patient was hypotensive post intubation. Likely secondary to positive pressure ventilation and sedation Patient also had a cardiac arrest on 08/20, requiring Levophed, epinephrine and vasopressin. Currently off vasopressors (7) Diabetes mellitus: Qualifiers: Diabetes mellitus type: type 2 Diabetes mellitus bed bug exterminator insulin use: without bed bug exterminator use Diabetes mellitus complication status: without complication Qualified Code(s): E11.9 - Type 2 diabetes mellitus without complications Code(s): E11.9 - Type 2 diabetes mellitus without complications Status: Chronic Assessment and Plan: Accuchecks, SSI coverage Patient was on insulin infusion briefly for hyperglycem
[2020-08-24 17:37] LABS: Glucose Point of Care 171 (65-105)
--- NOTE | 2020-08-24 18:01 | PM.IMPN ---
Progress Note: A&P Assessment and Plan (1) Cardiac arrest: Code(s): I46.9 - Cardiac arrest, cause unspecified Status: Acute Assessment and Plan: On vasopressors. (2) ARDS (adult respiratory distress syndrome): Code(s): J80 - Acute respiratory distress syndrome Status: Acute Assessment and Plan: On life support. Appreciate Int/CC note (3) Shock: Code(s): R57.9 - Shock, unspecified Status: Acute (4) Renal failure: Qualifiers: Renal failure chronicity: unspecified chronicity Qualified Code(s): N19 - Unspecified kidney failure Code(s): N19 - Unspecified kidney failure Status: Acute Assessment and Plan: Requiring dialysis. (5) Acute on chronic respiratory failure with hypoxia and hypercapnia: Code(s): J96.21 - Acute and chronic respiratory failure with hypoxia; J96.22 - Acute and chronic respiratory failure with hypercapnia Status: Acute Assessment and Plan: On ventilator support. Requiring 100% FiO2 now for several days Unable to go down on FiO2. Subjective Date/time seen: 08/24/20 18:01 On life support. Review of Systems Review of Systems: Narrative: Unable to obtain as patient is on life support. Exam Narrative: Exam Narrative: Exam limited to inspection. Patient seen thru glass door. Const: General: other (Sedated on life support.) HENMT: Head: normal to inspection and normocephalic Other: ETT in place. Neck: Neck: supple Neuro: General: other (Under sedation.) Objective Data Vital Signs Vital Signs: Vital Signs - 24 hr 08/23/20 18:36 08/23/20 19:06 08/23/20 19:08 Temperature Pulse Rate 88 87 88 Respiratory Rate 28 H 28 H 28 H Blood Pressure 138/61 Pulse Oximetry 08/23/20 20:00 08/23/20 20:15 08/23/20 20:40 Temperature 96.9 F L Pulse Rate 86 90 85 Respiratory Rate 28 H 28 H Blood Pressure 145/51 H Pulse Oximetry 90 87 L 08/23/20 20:49 08/23/20 21:40 08/23/20 21:52 Temperature Pulse Rate 87 89 90 Respiratory Rate 28 H 29 H 31 H Blood Pressure 133/55 L Pulse Oximetry 08/23/20 22:00 08/23/20 22:43 08/23/20 23:57 Temperature Pulse Rate 89 89 91 Respiratory Rate 31 H 28 H Blood Pressure 156/64 H 112/48 L Pulse Oximetry 87 L 87 L 08/24/20 00:00 08/24/20 01:20 08/24/20 02:00 Temperature 97.8 F 98.0 F Pulse Rate 91 89 86 Respiratory Rate 28 H 28 H 28 H Blood Pressure 132/51 L 122/57 L Pulse Oximetry 96 95 08/24/20 02:50 08/24/20 02:55 08/24/20 04:00 Temperature 98.2 F Pulse Rate 86 85 86 Respiratory Rate 28 H 28 H Blood Pressure 143/45 H Pulse Oximetry 95 95 08/24/20 04:48 08/24/20 04:52 08/24/20 04:58 Temperature Pulse Rate 86 86 86 Respiratory Rate 28 H 28 H Blood Pressure 145/52 H Pulse Oximetry 95 08/24/20 06:00 08/24/20 07:41 08/24/20 07:51 Temperature 97.4 F L Pulse Rate 86 81 Respiratory Rate 28 H 28 H Blood Pressure 144/51 H 148/52 H Pulse Oximetry 93 92 92 08/24/20 08:00 08/24/20 09:05 08/24/20 09:15 Temperature Pulse Rate 80 80 80 Respiratory Rate 28 H 28 H Blood Pressure Pulse Oximetry 91 08/24/20 09:42 08/24/20 09:48 08/24/20 09:55 Temperature 96.7 F L Pulse Rate 84 80 79 Respiratory Rate 28 H 28 H Blood Pressure 142/53 H 146/75 H Pulse Oximetry 91 08/24/20 10:00 08/24/20 10:15 08/24/20 10:30 Temperature Pulse Rate 84 80 80 Respiratory Rate 28 H Blood Pressure 152/50 H 152/57 H 145/56 H Pulse Oximetry 90 08/24/20 10:45 08/24/20 10:53 08/24/20 11:00 Temperature Pulse Rate 82 84 84 Respiratory Rate 28 H Blood Pressure 132/57 L 126/55 L Pulse Oximetry 08/24/20 11:15 08/24/20 11:30 08/24/20 11:34 Temperature Pulse Rate 84 85 83 Respiratory Rate Blood Pressure 115/54 L 120/57 L Pulse Oximetry 92 08/24/20 11:45 08/24/20 11:53 08/24/20 12:00 Temperature Pulse Rate 85 83 Respiratory Rate 28 H Bloo
[2020-08-24 18:32] LABS: Vancomycin Trough 13.6 ug/mL (10.0-20.0)
[2020-08-24] MEDS: CEFEPIME 0.5 GM in DEXTROSE 5% IN WATER 50 ML IVPB (20:22)
[2020-08-24] MEDS: PROPOFOL IV EMULSION 100 ML 27.07 MG IV CONT (22:39)
[2020-08-24] MEDS: INSULIN ASPART (*BKC) 100 UNITS/ML SUB-Q (23:17)
[2020-08-24 23:25] LABS: Glucose Point of Care 211 (65-105)
[2020-08-25] VITALS (60 sets, daily range): BP systolic 93–152; BP diastolic 46–60; PULSE 75–100; RESP 28–32; TEMP 34.6–36.8; O2SAT 87–96
[2020-08-25] MEDS: PROPOFOL IV EMULSION 100 ML 27.07 MG IV CONT ×6 (02:26→21:27)
[2020-08-25] MEDS: IPRATROPIUM BR 0.02% INH SOLN 0.5 MG/2.5 ML VIAL INHALATION ×4 (02:58→20:34)
[2020-08-25] MEDS: ALBUTEROL SULFATE NEB 2.5 MG/0.5 ML INH 5 MG INHALATION ×4 (02:58→20:34)
--- NOTE | 2020-08-25 03:19 | WPDPROCEDUR ---
Procedures Intubation Intubation Date: 08/25/20 Intubation Time: 03:00 A pre-procedural Time-Out was completed immediately before starting the procedure and confirmed: Patient Identification, Site, Procedure, Patient Position and the Availability of Requisite Equipment: Yes Paralytic: other Laryngoscope: fiber optic video scope Assist device used: other (Paratek Changeout Catheter) ET tube size: cuffed Tube secured depth (cm): 25 Tube secured location: teeth Tube placement confirmation: visualized tube passing through cords, equal breath sounds bilaterally, no breath sounds over epigastrium and confirmation by capnometry Patient tolerated procedure: well Intubation complications: none Additional comments: Date of service was 08/25/2020 at 03:00 hrs.
[2020-08-25] MEDS: CISATRACURIUM BESYLATE 200 MG in DEXTROSE 5% 80 ML 10.28 ML IV CONT ×2 (03:38→11:20)
[2020-08-25] MEDS: FENTANYL 2,500MCG/NS250ML(*CRX 2,500 MCG/250 ML BAG 15 MCG IV CONT (03:39)
[2020-08-25] MEDS: CENTRAL LINE FLUSH 10 ML IV PUSH ×4 (05:11→20:50)
[2020-08-25 05:19] LABS: Alveolar/Arterial O2 Gradient 580.4 mmHg; Base Excess ABG 1.9 mEq/l (+/-2.0); Carboxyhemoglobin 0.5 % THb (0-2.0); Fractional Inspired Oxygen 100 %; HCO3 ABG 28.4 mEq/l (22.0-26.0); Methemoglobin ABG 0.2 %THb (0-1.5); Oxygen Content ABG 9.6 %vol (16.0-22.0); Oxygen Saturation ABG 93.9 % (95.0-100.0); Oxyhemoglobin 92.7 % THb (90.0-100.0); PCO2 ABG 56.6 mmHg (35.0-45.0); PO2 FiO2 Ratio Arterial Blood 0.76 %; Reduced Hemoglobin 6.6 %THb (0-5.0); pH ABG 7.318 (7.350-7.450)
[2020-08-25 05:21] LABS: Device VENTILATOR; Modified Allen's Test Pass; Site Drawn RIGHT RADIAL; Total Hemoglobin 7.3 g/dL (12.0-18.0)
[2020-08-25 05:22] LABS: Arterial Blood Gas PEEP 16 cmH2O; Arterial Blood Gas Tidal Volume 400 ml; Arterial Blood Gas Vent Mode CMV; Arterial Blood Gas Ventilator rate 28 /MIN
[2020-08-25 05:23] LABS: Hematocrit 21.3 % (42.0-52.0); Mean Corpuscular HGB Conc 32.4 g/dl (32-36); Mean Corpuscular Volume 80.4 fl (80-100); Mean Platelet Volume 12.2 fl (7.4-10.4); Platelet Count Result 213 k/mm3 (150-375); Red Blood Count 2.65 M/mm3 (4.6-6.20); White Blood Count 20.4 K/mm3 (4.5-10.0)
[2020-08-25 05:49] LABS: Alanine Aminotransferase 108 U/L (4-50); Alkaline Phosphatase 181 U/L (38-126); Anion Gap 9 mmol/L (8-16); Aspartate Amino Transferase 88 U/L (17-59); Bilirubin,Total 0.6 mg/dL (0.2-1.3); Blood Urea Nitrogen 74 mg/dL (9-20); Calcium 7.4 mg/dL (8.4-10.2); Carbon Dioxide 31 mmol/L (22-30); Chloride 88 mmol/L (98-107); Estimated CRCL calculation 19 ml/min; Estimated Glomerular Filt Rate 18; Glucose 213 mg/dL (75-110); Potassium 4.5 mmol/L (3.4-5.0); Sodium 128 mmol/L (137-145)
[2020-08-25 06:04] LABS: Hemoglobin 6.9 g/dL (14.0-18.0)
[2020-08-25 06:12] LABS: Band Neutrophils Percent 5 % (0-6); Lymphocytes Absolute Manual 2.04 K/mm3 (1.1-4.5); Monocytes Percent Manual 2 % (3-9); Neutrophils Absolute Manual 17.95 K/mm3 (1.3-6.7); Neutrophils Percent Manual 83 % (46-73); Platelet Estimate Adequate (Adequate); Total Cells Counted 100
[2020-08-25 06:15] LABS: Helmet Cells 1+ (NORMAL); Hypochromasia 1+ (NORMAL); Ovalocytes 2+ (NORMAL); Tear Drop Cells 1+ (NORMAL)
[2020-08-25] MEDS: INSULIN ASPART (*BKC) 100 UNITS/ML SUB-Q (06:39)
[2020-08-25 06:46] LABS: Glucose Point of Care 213 (65-105)
[2020-08-25] MEDS: BUDESONIDE RESPULE NEB 0.5 MG/2 ML AMP INHALATION ×2 (08:10→20:33)
[2020-08-25] MEDS: ENOXAPARIN 40 MG/0.4 ML SYRINGE SUB-Q ×2 (08:42→20:50)
[2020-08-25] MEDS: INSULIN GLARGINE (*BKC) 100 UNITS/ML 50 UNITS SUB-Q (08:48)
[2020-08-25 08:53] LABS: Glucose Point of Care 194 (65-105)
--- NOTE | 2020-08-25 09:36 | PM.PNNEP ---
Progress Note: A&P Assessment and Plan (1) Renal failure: Qualifiers: Renal failure chronicity: unspecified chronicity Qualified Code(s): N19 - Unspecified kidney failure Code(s): N19 - Unspecified kidney failure Status: Acute Assessment and Plan: unclear what baseline kidney function is suspect etiology multifactorial: - IV contrast exposure (on 08/13/[address] of chest) - altered hemodynamics/hypotension (he is still on pressors) - infection (pneumonia + COVD-19) - concurrent ARB use prior to admission renal ultrasound he does have a small right kidney. Continue dialysis treatments. Try to take fluid off as tolerated by his blood pressure. Yesterday we got 2.5L off. Will use low temperature bath to try to remove extra fluid. (2) Acute hypoxemic respiratory failure: Code(s): J96.01 - Acute respiratory failure with hypoxia Status: Acute Assessment and Plan: due to pneumonia, COVD-19, and maybe CHF likely culminating in ARDS On Dexamethasone and supportive care including pulmonary toilet, ventilator, and prone position. (3) Shock: Code(s): R57.9 - Shock, unspecified Status: Acute Assessment and Plan: Blood pressure is better. (4) COVID-19: Code(s): U07.1 - COVID-19 Status: Acute Assessment and Plan: tested positive on steroids not a candidate for remdesivir (due to renal disease) continue ventilator support (5) Pneumonia: Qualifiers: Laterality: unspecified laterality Lung location: unspecified part of lung Pneumonia type: due to unspecified organism Qualified Code(s): J18.9 - Pneumonia, unspecified organism Code(s): J18.9 - Pneumonia, unspecified organism Status: Acute Assessment and Plan: follow cultures on cefepime Subjective Date/time seen: 08/25/20 09:36 Interval history: Patient is doing better. He is still on the ventilator. He is off pressors. Will continue dialysis again today. Try to remove as much fluid as possible. Will start off slowly and increase ultrafiltration as we go Review of Systems Review of Systems: ROS unobtainable: Yes unobtainable due to medical condition Exam Narrative: Exam Narrative: General: WD/WN male intubated/sedate Heart: normal S1 and S2; no rub Lungs: coarse breath sounds bilaterally Abdomen: soft, nontender, nondistended, positive bowel sounds Extremities: 1-2+ edema Skin: No rash or subcu nodules Objective Data Vital Signs Vital Signs: Vital Signs - 24 hr 08/24/20 09:42 08/24/20 09:48 08/24/20 09:55 Temperature 35.9 C L Pulse Rate 84 80 79 Respiratory Rate 28 H 28 H Blood Pressure 142/53 H 146/75 H Pulse Oximetry 91 08/24/20 10:00 08/24/20 10:15 08/24/20 10:30 Temperature Pulse Rate 84 80 80 Respiratory Rate 28 H Blood Pressure 152/50 H 152/57 H 145/56 H Pulse Oximetry 90 08/24/20 10:45 08/24/20 10:53 08/24/20 11:00 Temperature Pulse Rate 82 84 84 Respiratory Rate 28 H Blood Pressure 132/57 L 126/55 L Pulse Oximetry 08/24/20 11:15 08/24/20 11:30 08/24/20 11:34 Temperature Pulse Rate 84 85 83 Respiratory Rate Blood Pressure 115/54 L 120/57 L Pulse Oximetry 92 08/24/20 11:45 08/24/20 11:53 08/24/20 12:00 Temperature Pulse Rate 85 83 Respiratory Rate 28 H Blood Pressure 121/55 L 109/64 Pulse Oximetry 92 97 08/24/20 12:15 08/24/20 12:30 08/24/20 12:45 Temperature Pulse Rate 84 83 84 Respiratory Rate Blood Pressure 114/61 102/61 113/63 Pulse Oximetry 08/24/20 12:59 08/24/20 13:05 08/24/20 14:00 Temperature 36.2 C L Pulse Rate 82 82 80 Respiratory Rate 28 H 28 H Blood Pressure 109/64 149/56 H 151/58 H Pulse Oximetry 97 95 08/24/20 14:48 08/24/20 14:56 08/24/20 15:33 Temperature Pulse Rate 82 80 Respiratory Rate 28 H Blood Press
--- NOTE | 2020-08-25 11:03 | PCDIET ---
Nutrition Follow-Up Complete: Nutrition Diagnosis: Inadequate oral intake related to oral intubation as evidenced by NPO status. Nutrition Goal: Patient to meet estimated nutritional needs. Goal in progress. Patient tolerating Nepro at 35mL/hr goal rate with 30mL water flush every 4 hours. MD agreeable to Pro-Stat TID (300kcal, 45g protein) as recommended. Last recorded weight is 120.5 kg which is increased from last review. Patient had 2.5L UF on 08/24/20. Recommend reweighing patient to ensure accuracy. Bowel Motility: FMS in place for loose stools. Labs Reviewed: Hgb (6.9), Hct (21.3), Glu (213), BUN (74), Cr (3.9), Na (128), Alb (3.0), Sydnee Ca (8.2) Meds Noted: Propofol (rate of 27.07mL/hr provides 714kcal per day), Albuterol, Pulmicort, Cefepime, Nimbex, Fentanyl, Novolog, Lantus, Atrovent, Lopressor, Levophed, Vancomycin Additional Notes: Coccyx and bilateral cheeks with friction areas. Will continue to monitor with same goal. Nutrition Monitoring and Evaluation: Follow up every Friday/Friday.
[2020-08-25 11:50] LABS: Glucose Point of Care 177 (65-105)
--- NOTE | 2020-08-25 15:12 | WPDINTPN ---
Progress Note: A&P Assessment and Plan (1) Cardiac arrest: Code(s): I46.9 - Cardiac arrest, cause unspecified Status: Acute Assessment and Plan: Patient had a PEA arrest on 08/20 after being started on his 1st treatment of dialysis. He arrested twice. First time required several rounds of CPR and epinephrine. The 2nd time he only had 1 round of epinephrine and CPR before ROSC. -patient remains in shock, on vasopressin, epinephrine and Levophed. Have asked the bedside RN to discontinue epinephrine and increase Levophed as required -could be related to fluid shift, electrolyte imbalance, volume depletion (2) Acute on chronic respiratory failure with hypoxia and hypercapnia: Code(s): J96.21 - Acute and chronic respiratory failure with hypoxia; J96.22 - Acute and chronic respiratory failure with hypercapnia Status: Acute Assessment and Plan: Secondary to COVID-19 pneumonia and possible component of congestive heart failure. Patient was given Lasix for 1st couple days with no improvement Admitted 08/13, BiPAP 08/14, intubated 08/16 Chest x-ray ABG reviewed, Low tidal volume strategy, will decrease PEEP to 14 and 100% FiO2, wean FiO2 as tolerated Neuromuscular blockade restarted on 08/23 Sedation with fentanyl and propofol Completed course of empiric antibiotic therapy with Rocephin azithromycin. Continue Bronchodilators Blood and sputum culture are negative as of now Discussed with Nephrology, will remove fluid daily for at least the next 2-3 days as tolerated (3) COVID-19: Code(s): U07.1 - COVID-19 Status: Acute Assessment and Plan: SARS-CoV-2 PCR positive 08/13 Patient on Airborne, Droplet and Contact Isolation 10 day course of dexamethasone and did on 08/23 Patient was not a candidate for remdesivir due to elevated creatinine/acute on chronic kidney disease Follow inflammatory periodically (4) Pneumonia: Qualifiers: Laterality: unspecified laterality Lung location: unspecified part of lung Pneumonia type: due to unspecified organism Qualified Code(s): J18.9 - Pneumonia, unspecified organism Code(s): J18.9 - Pneumonia, unspecified organism Status: Acute Assessment and Plan: See above (5) Renal failure: Qualifiers: Renal failure chronicity: unspecified chronicity Qualified Code(s): N19 - Unspecified kidney failure Code(s): N19 - Unspecified kidney failure Status: Acute Assessment and Plan: MARCO A with baseline creatinine unknown Dialysis started on 08/20 and patient had a cardiac arrest within minutes of starting the dialysis. Overall positive fluid balance Dialysis per Nephrology Patient has a right femoral temporary dialysis catheter (6) Shock: Code(s): R57.9 - Shock, unspecified Status: Acute Assessment and Plan: Resolved, patient is off all vasopressors Patient was hypotensive post intubation. Likely secondary to positive pressure ventilation and sedation Patient also had a cardiac arrest on 08/20, requiring Levophed, epinephrine and vasopressin. Currently off vasopressors (7) Diabetes mellitus: Qualifiers: Diabetes mellitus type: type 2 Diabetes mellitus rodent exterminator insulin use: without rodent exterminator use Diabetes mellitus complication status: without complication Qualified Code(s): E11.9 - Type 2 diabetes mellitus without complications Code(s): E11.9 - Type 2 diabetes mellitus without complications Status: Chronic Assessment and Plan: Accuchecks, SSI coverage Patient was on insulin infusion briefly for hyperglycemia secondary to cardiac arrest/shock/dexamethasone -currently on Lantus and sliding scale insulin (8) Hyperlipidemia: Qualifiers: Hyperlipidemia type: unspecified Qualified Code(s): E78.5 - Hyperlipidemia, unspecified Code(s): E78.5 - Hyperlipidemia, unspecified Status: Chronic Assessment and Plan: Continue atorvas
[2020-08-25 17:46] LABS: Glucose Point of Care 137 (65-105)
--- NOTE | 2020-08-25 18:06 | PM.IMPN ---
Progress Note: A&P Assessment and Plan (1) Cardiac arrest: Code(s): I46.9 - Cardiac arrest, cause unspecified Status: Acute Assessment and Plan: S/p ROSC Several days now. (2) ARDS (adult respiratory distress syndrome): Code(s): J80 - Acute respiratory distress syndrome Status: Acute Assessment and Plan: On ventilator support Several days requiring 100% FiO2 (3) CHF (congestive heart failure): Code(s): I50.9 - Heart failure, unspecified Status: Acute Assessment and Plan: Continue to monitor I/O's Requiring vasopressors. (4) Shock: Code(s): R57.9 - Shock, unspecified Status: Acute Assessment and Plan: On vasopressors Likely cardiogenic in origin (5) COPD (chronic obstructive pulmonary disease): Code(s): J44.9 - Chronic obstructive pulmonary disease, unspecified Status: Acute Assessment and Plan: Breathing treatments. (6) Severe sepsis: Code(s): A41.9 - Sepsis, unspecified organism; R65.20 - Severe sepsis without septic shock Status: Acute Assessment and Plan: On Cefepime/Vancomycin Requiring vasopressors (7) Acute on chronic respiratory failure with hypoxia and hypercapnia: Code(s): J96.21 - Acute and chronic respiratory failure with hypoxia; J96.22 - Acute and chronic respiratory failure with hypercapnia Status: Acute Assessment and Plan: On ventilator support. 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 Subjective Date/time seen: 08/25/20 18:06 Patient is on life support. Review of Systems Review of Systems: Narrative: Unable to obtain as patient is on life support. Exam Narrative: Exam Narrative: Patient is seen thru glass door. Exam is limited to Inspection Const: General: other (On life support.) Orientation/consciousness: Other orientation findings (Sedated) HENMT: Head: normocephalic Neck: Neck: supple Resp: Effort & Inspection: normal respiratory effort and other (In sync with vent.) Skin: General skin exam: normal color Neuro: General: other (Sedated) Objective Data Vital Signs Vital Signs: Vital Signs - 24 hr 08/24/20 20:00 08/24/20 21:10 08/24/20 21:26 Temperature 97.2 F L Pulse Rate 77 85 87 Respiratory Rate 28 H 28 H 28 H Blood Pressure 151/64 H Pulse Oximetry 92 93 08/24/20 22:00 08/24/20 23:40 08/25/20 00:00 Temperature 97.2 F L Pulse Rate 76 81 75 Respiratory Rate 28 H 28 H Blood Pressure 134/44 L 137/54 L Pulse Oximetry 95 90 90 08/25/20 02:00 08/25/20 02:26 08/25/20 02:58 Temperature Pulse Rate 83 89 85 Respiratory Rate 28 H 28 H 28 H Blood Pressure 152/54 H Pulse Oximetry 90 08/25/20 03:00 08/25/20 03:34 08/25/20 03:38 Temperature Pulse Rate 85 84 84 Respiratory Rate 28 H 28 H Blood Pressure 135/54 L Pulse Oximetry 88 L 08/25/20 03:39 08/25/20 04:00 08/25/20 04:15 Temperature 97.9 F Pulse Rate 84 84 83 Respiratory Rate 28 H 28 H 28 H Blood Pressure 143/58 H 143/58 H Pulse Oximetry
[2020-08-25 18:27] LABS: Hepatitis C RNA, Quant PCR <15 IU/mL
[2020-08-25] MEDS: CEFEPIME 0.5 GM in DEXTROSE 5% IN WATER 50 ML IVPB (20:43)
[2020-08-25 21:02] LABS: Hematocrit 24.3 % (42.0-52.0); Hemoglobin 8.1 g/dL (14.0-18.0)
[2020-08-25] MEDS: CISATRACURIUM BESYLATE 200 MG in DEXTROSE 5% 80 ML 13.7 ML IV CONT (21:31)
[2020-08-25] MEDS: FENTANYL 2,500MCG/NS250ML(*CRX 2,500 MCG/250 ML BAG 12.5 MCG IV CONT (21:34)
[2020-08-26] VITALS (15 sets, daily range): BP systolic 86–116; BP diastolic 42–60; PULSE 0–102; RESP 0–32; TEMP 37.4–37.8; O2SAT 84–91
[2020-08-26] MEDS: PROPOFOL IV EMULSION 100 ML 27.07 MG IV CONT ×2 (00:32→04:10)
[2020-08-26 01:16] LABS: Glucose Point of Care 171 (65-105)
[2020-08-26] MEDS: CISATRACURIUM BESYLATE 200 MG in DEXTROSE 5% 80 ML 17.13 ML IV CONT (04:08)
[2020-08-26 05:16] LABS: Alveolar/Arterial O2 Gradient 588.8 mmHg; Base Excess ABG 0.2 mEq/l (+/-2.0); Carboxyhemoglobin 0.3 % THb (0-2.0); Fractional Inspired Oxygen 100 %; HCO3 ABG 27.1 mEq/l (22.0-26.0); Methemoglobin ABG 0.4 %THb (0-1.5); Oxygen Content ABG 10.9 %vol (16.0-22.0); Oxygen Saturation ABG 91.1 % (95.0-100.0); PCO2 ABG 56.8 mmHg (35.0-45.0); PO2 ABG 67.4 mmHg (80.0-100.0); PO2 FiO2 Ratio Arterial Blood 0.67 %; Reduced Hemoglobin 10.3 %THb (0-5.0); Total Hemoglobin 8.6 g/dL (12.0-18.0)
[2020-08-26 05:17] LABS: Device VENTILATOR; Modified Allen's Test Unable to perform; Site Drawn RIGHT RADIAL
[2020-08-26 05:18] LABS: Arterial Blood Gas PEEP 18 cmH2O; Arterial Blood Gas Tidal Volume 360 ml; Arterial Blood Gas Vent Mode ASSIST CONTROL; Arterial Blood Gas Ventilator rate 32 /MIN; pH ABG 7.297 (7.350-7.450)
[2020-08-26] MEDS: CENTRAL LINE FLUSH 10 ML IV PUSH (05:39)
[2020-08-26] MEDS: INSULIN ASPART (*BKC) 100 UNITS/ML SUB-Q (05:40)
[2020-08-26 05:54] LABS: Glucose Point of Care 244 (65-105)
[2020-08-26 06:09] LABS: Hematocrit 23.5 % (42.0-52.0); Hemoglobin 7.7 g/dL (14.0-18.0); Mean Corpuscular HGB Conc 32.8 g/dl (32-36); Mean Corpuscular Volume 82.5 fl (80-100); Mean Platelet Volume 12.1 fl (7.4-10.4); Platelet Count Result 226 k/mm3 (150-375); Red Blood Count 2.85 M/mm3 (4.6-6.20); White Blood Count 22.2 K/mm3 (4.5-10.0)
[2020-08-26 06:33] LABS: Alanine Aminotransferase 78 U/L (4-50); Albumin Level 3.2 g/dL (3.5-5.1); Alkaline Phosphatase 192 U/L (38-126); Anion Gap 9 mmol/L (8-16); Aspartate Amino Transferase 75 U/L (17-59); Bilirubin,Total 0.6 mg/dL (0.2-1.3); Blood Urea Nitrogen 63 mg/dL (9-20); Calcium 7.5 mg/dL (8.4-10.2); Carbon Dioxide 31 mmol/L (22-30); Chloride 88 mmol/L (98-107); Estimated CRCL calculation 18 ml/min; Estimated Glomerular Filt Rate 17; Glucose 235 mg/dL (75-110); Magnesium 2.7 mg/dL (1.6-2.3); Phosphorus 8.6 mg/dL (2.5-4.5); Potassium 5.5 mmol/L (3.4-5.0); Sodium 128 mmol/L (137-145)
--- NOTE | 2020-08-26 08:14 | PDCODEBLUE ---
Code Blue Note Code Blue Note Time Arrived at Code Blue: 7:42AM Airway Management: Pt being bagged on arrival Chest Compressions: Initiated upon arrival Result of Code Blue: Pt Cardiac Rhythm Post Code: PEA Code Blue Summary: I was called by the nurse at the bedside as the patient did not have any pulse. ACLS protocol was initiated. Patient was given epinephrine and bicarb. He received 3 doses of epinephrine. ROCS was achieved briefly for 1 minutes but lost pulses again. ACLS protocol was re-initiated. He was hypotensive and started on Levophed. He was given two doses of epinephrine and 1 dose of bicarbonate. ROCS was achieved again. Family was called and patient's decided to stop all aggressive measures including resuscitation. His ET tube was noticed to be dislodged and was being reintubated but he lost pulse again. He lost pulse again and he was to declared at that time at 7:58AM.
[2020-08-26 08:15] LABS: Glucose Point of Care 207 (65-105)
[2020-08-26 08:44] LABS: Chloride Rand Ur 22 mmol/L (32-290); Chloride/Creatinine Rand Ur 17 (23-275); Creatinine Random Urine 126 mg/dL (20-320)
--- NOTE | 2020-09-17 18:33 | PM.DDS ---
Discharge Sum: Prov Provider Primary care physician: Danny Hazel, Admitting provider: Cornelius Torres MD Consults: 08/14/20 17:26 Consult to Physician Routine Comment: SPOKE WITH DR. QUINONEZ Consulting Provider: Marcy Gonzales house calls nurse/MD group to consult: Dr Quinonez Reason for consultation: Shortness of breath BIPAP covid Has provider been notified: Yes 08/17/20 Consult to Physician Routine Comment: physician is aware of consult Consulting Provider: Harris Mcleod house calls nurse/MD group to consult: Nephrology Reason for consultation: MARCO A Has provider been notified: Yes Pronouncing clinician: Fabricio Munoz Discharge Sum: Diag Contributing Factors (1) Cardiac arrest: (2) ARDS (adult respiratory distress syndrome): (3) Shock: (4) CHF (congestive heart failure): (5) COPD (chronic obstructive pulmonary disease): (6) COVID-19: (7) Renal failure: (8) Acute on chronic respiratory failure with hypoxia and hypercapnia: (9) Suspected 2019 novel coronavirus infection: (10) Pneumonia: Discharge Sum: Summary Date and Time Date of admission: 08/13/20 21:47 Date of : 08/26/20 Time of : 07:58 Summary Details: Patient was on ventilator support and went into cardiac arrest, ACLS protocol was ongoing at time of arrival. I called and updated regarding current ongoing code blue. stated to abandon all efforts to resuscitate Patient . Additional Data Confirmation of as documented by pronouncing clinician: no pulse, no respirations and no heart sounds Family: contacted Attending/PCP notified?: No Attending physician: Luis Fernando Quesada MD Was code activated?: Yes Autopsy requested?: No finished yarn examiner notified?: No Organ bank notified?: No Advance directives: Yes Hospice patient?: No
== END 2020-08-26 07:58 | disposition expired | DRG 870 ==
LOC: ANHED 21:54 → ANHICU 08-14 01:57 → ANHIMU 08-14 10:53 → ANHICU 08-21 05:05 → ANHIMU 08-28 16:57
PROVIDERS: Emergency Medicine; Internal Medicine; Internal Medicine Nephrology; Admitting Provider Family Medicine; Emergency Provider Emergency Medicine; PCP Internal Medicine; Visit Provider Family Medicine
DX: A41.89 Other specified sepsis (principal); U07.1 COVID-19; J12.89 Other viral pneumonia; J80 Acute respiratory distress syndrome; J44.0 Chronic obstructive pulmonary disease with (acute) lower respiratory infection; R57.9 Shock, unspecified; I47.2 Ventricular tachycardia; I46.9 Cardiac arrest, cause unspecified; R65.20 Severe sepsis without septic shock; N19 Unspecified kidney failure; I11.0 Hypertensive heart disease with heart failure; I50.9 Heart failure, unspecified; D64.9 Anemia, unspecified; R82.90 Unspecified abnormal findings in urine; E11.65 Type 2 diabetes mellitus with hyperglycemia; E78.5 Hyperlipidemia, unspecified; F03.90 Unspecified dementia, unspecified severity, without behavioral disturbance, psychotic disturbance, mood disturbance, and anxiety; Z99.81 Dependence on supplemental oxygen; Z79.82 Long term (current) use of aspirin; Z79.4 Long term (current) use of insulin; Z87.891 Personal history of nicotine dependence
CPT/HCPCS: 31500; 36415; 36430; 36556; 36600; 71045; 71275; 76775; 80048; 80053; 80069; 80074; 80202; 81001; 81050; 82375; 82436; 82550; 82565; 82570; 82728; 82805; 83050; 83605; 83615; 83735; 83880; 84100; 84156; 84300; 84443; 85014; 85018; 85025; 85027; 85610; 85652; 85730; 85999; 86140; 86706; 86850; 86900; 86901; 86923; 87040; 87070; 87077; 87086; 87106; 87186; 87205; 87522; 87635; 92950; 93005; 93306; 94002; 94003; 94640; 94660; 96374; 99291; A9270; C1729; C1751; C1752; C9803; G0257; J0171; J0282; J0330; J0360; J0456; J0610; J0692; J0696; J1100; J1642; J1644; J1650; J1815; J1940; J2250; J2704; J2997; J3010; J3370; J7030; J7040; J7050; J7060; J7120; P9016; P9047; Q9967; U0003